=== PATIENT | male | born 1945 | race Caucasian/White ===

== ENCOUNTER → 2018-11-04 08:39 | Outpatient (CLI) | payer MEDICARE, BC, SELFPAY ==
--- NOTE | 2018-11-04 | DI.US.S_ITS ---
PROCEDURE: US ABDOMEN COMPLETE INDICATIONS: RIGHT UPPER QUADRANT PAIN TECHNIQUE: Real-time scanning was performed of the abdominal and retroperitoneal organs, with image documentation. COMPARISON: [facility], , ABD AORTA ANEURYSM SCREENING, 12/03/2017, 13:47. FINDINGS: Liver: Liver is normal in size and homogeneous in echotexture, diffusely mildly hyperechoic consistent with fatty infiltration. Gallbladder: The gallbladder contains clustered multiple hyperechoic foci with posterior shadowing consistent with numerous small calculi each measuring approximately 3-4 mm. Biliary ducts: Intrahepatic bile ducts are non-dilated. Extrahepatic bile duct caliber measures 4.9 mm. Normal is 6-7 mm or less in diameter, or 10 mm or less post-cholecystectomy. Pancreas: Visualized portions of the pancreas are sonographically normal. Spleen: Spleen is normal in size and homogeneous in echotexture. Kidneys: Kidneys are normal in size and echotexture. Right kidney measures 12.6 cm long; left kidney measures 10.2 cm long. No hydronephrosis or nephrolithiasis. No solid masses. Aorta: Visualized aorta is normal in caliber at less than 3 cm superiorly and at the middle third of the aorta but the distal third of the aorta there is a unexpected finding of avascular structure contiguous with the posterior aortic wall, measuring up to 1.5 cm AP and 2.2 cm craniocaudad. This contains blood flow that by color Doppler appearance is inferior-directed. A classic swirling pattern of a definite pseudoaneurysm is not seen the aorta in this area more anteriorly measures a normal value of 2.1 cm. Iliacs: Proximal common iliac arteries are normal in caliber at less than 2.5 cm. IVC: Intrahepatic inferior vena cava is patent. Miscellaneous: No free abdominal fluid. IMPRESSION: 1. There is an unexpected finding of a structure behind the distal aorta containing antegrade-flowing line, having a saccular appearance and potentially station of saccular aneurysm. The aorta in this area however measures up to 2.1 cm in diameter, normal. This could represent some form of bypass grafting, which should be evident by clinical history. Assuming no vascular or surgical intervention in this area contrast-enhanced CT scanning is recommended to attempt to understand this structure. It is possible it represents a normal anatomic variant but eccentric (saccular) pseudoaneurysm must be excluded. 2. Multiple small gallstones within the gallbladder lumen but without associated acute cholecystitis or biliary obstruction. Dictated by: Salazar Lambert M.D. on 11/04/2018 at 10:18 Approved by: Salazar Lambert M.D. on 11/04/2018 at 10:31
== END ==
PROVIDERS: PCP Family Medicine; Visit Provider Family Medicine
DX: R10.11 Right upper quadrant pain (principal); K80.80 Other cholelithiasis without obstruction
CPT/HCPCS: 76700

== ENCOUNTER → 2018-11-11 12:03 | Outpatient (CLI) | payer MEDICARE, BC, SELFPAY ==
--- NOTE | 2018-11-11 | DI.CT.S_ITS ---
PROCEDURE: CT ANGIO CHEST ABDOMEN INDICATIONS: ABNORMAL US RIGHT UPPER QUAD PAIN TECHNIQUE: Precontrast 5 mm thick sections acquired from the lung apices to the iliac crests. After the administration of intravenous contrast, 2.5 mm thick sections again acquired from the lung apices to the iliac crests. 10 mm maximum intensity projection (MIP) oblique sagittal and coronal reformats were then acquired. For radiation dose reduction, the following was used: automated exposure control. COMPARISON: [facility], US, US ABDOMEN COMPLETE, 11/04/2018, 8:54. FINDINGS: Image quality: Excellent. AORTA: The ascending thoracic aorta, aortic arch, and descending thoracic aorta demonstrate normal caliber and wall thickness. There is little to no atheromatous plaque or calcification. No mural hematoma. No aneurysmal dilatation. No stenosis. No periaortic fat stranding. CHEST: Lungs and pleura: Mild atelectasis is present in the dependent lungs bilaterally. No pleural effusion or pneumothorax. Mediastinum: Heart size is normal. No pericardial effusion. No mediastinal or hilar adenopathy by size criteria. Central pulmonary arteries are normal in size. Esophagus is normal in caliber. No hiatal hernias. Bones and chest wall: No axillary adenopathy by size criteria. Thyroid gland is unremarkable. No suspicious bony lesions. No vertebral body compression fractures. ABDOMEN: Vasculature: Celiac trunk and mesenteric arteries are patent. Renal arteries are also patent. Scattered atheromatous calcifications are present throughout the abdominal aorta. There is saccular dilatation of the infrarenal abdominal aorta measures up to 2.8 cm on AP diameter (series 9, image 55). Solid organs: Liver is normal in size and overall enhancement. A hypervascular focus with mild subcapsular retraction is present at the inferior margin the liver which may represent a small hemangioma Series 4, image 140).. Trace radiodense sludge layered in the gallbladder fundus. No gallbladder wall thickening or pericholecystic fluid. Biliary system is non dilated. Pancreas enhances normally. Spleen is normal in size and enhancement. No adrenal nodules. The right kidney is normal size. The left kidney is atrophic. A nonobstructing 2 mm calculus is present within the midpole of the left kidney. No hydronephrosis. Peritoneum and bowel: No free fluid or air. Bowel loops are normal in caliber and wall thickness. Nodes and vessels: No retroperitoneal or mesenteric adenopathy by size criteria. Inferior vena cava is normal in morphology. Bones: No suspicious bony lesions. No vertebral body compression fractures. Miscellaneous: No ventral hernias. IMPRESSION: 1. No thoracic aortic dissection, aneurysmal dilatation, or stenosis. 2. 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 Consider five-year sonographic surveillance. 3. No acute thoracic or intra-abdominal findings. 4. Left renal atrophy. No discrete stenosis within the left renal artery to explain atrophy. 5. Questionable hemangioma at the inferior margin of the right hepatic lobe with capsular retraction. Second look ultrasound is recommended to further characterize this finding and exclude neoplasm. Dictated by: Shanon Escobar M.D. on 11/11/2018 at 15:47 Approved by: Shanon Escobar M.D. on 11/11/2018 at 15:59
[2018-11-11 12:40] LABS: BUN Creatinine Ratio 13.8 (6-22); Blood Urea Nitrogen 11 mg/dL (9-20); Estimated Glomerular Filt Rate > 60.0 mL/min (>60)
[2018-11-11 13:27] LABS: Add Manual Diff / Slide Review NO; Basophils Absolute Auto 100 /uL (0-100); Basophils Percent Auto 2.1 % (0-2); Eosinophils Absolute Auto 100 /uL (0-450); Eosinophils Percent Auto 5.3 % (2-4); Hematocrit 40.8 % (41-53); Hemoglobin 14.2 g/dL (13.5-17.5); Lymphocytes Absolute Auto 1100 /uL (1100-4500); Lymphocytes Percent Auto 42.7 % (25-40); Mean Corpuscular HGB Conc 34.8 % (30-36); Mean Corpuscular Hemoglobin 33.1 PG (26-34); Mean Corpuscular Volume 95.2 fL (80-100); Monocytes Absolute Auto 200 /uL (0-900); Monocytes Percent Auto 8.9 % (3-14); Neutrophils Absolute Auto 1100 /uL (1500-7000); Platelet Count 131 X10^3/uL (150-400); Red Blood Cell Count 4.29 X10^6/uL (4.5-5.9); Red Cell Distribution Width 12.9 % (11.6-14.8); White Blood Cell Count 2.6 X10^3/uL (4.5-11.0)
== END ==
PROVIDERS: PCP Family Medicine; Visit Provider Family Medicine
DX: Z00.00 Encounter for general adult medical examination without abnormal findings (principal); R93.5 Abnormal findings on diagnostic imaging of other abdominal regions, including retroperitoneum; R10.11 Right upper quadrant pain; I77.811 Abdominal aortic ectasia; N26.1 Atrophy of kidney (terminal); E78.5 Hyperlipidemia, unspecified; D64.9 Anemia, unspecified
CPT/HCPCS: 36415; 71275; 74175; 82565; 84520; 85025; Q9967

== ENCOUNTER → 2018-12-14 09:43 | Outpatient (CLI) | payer MEDICARE, BC, SELFPAY ==
[2018-12-14 10:47] LABS: Alanine Aminotransferase 28 IU/L (21-72); Albumin 4.7 g/dL (3.5-5.0); Albumin Globulin Ratio 1.4 (1.0-2.8); Alkaline Phosphatase 54 U/L (38-126); Aspartate Aminotransferase 52 IU/L (17-59); BUN Creatinine Ratio 16.3 (6-22); Bilirubin Total 1.3 mg/dL (0.2-1.3); Blood Urea Nitrogen 13 mg/dL (9-20); Calcium 9.6 mg/dL (8.4-10.2); Carbon Dioxide 29 mmol/L (22-32); Chloride 103 mmol/L (98-107); Estimated Glomerular Filt Rate > 60.0 mL/min (>60); Globulin 3.3 g/dL (1.7-4.1); Glucose 99 mg/dL (80-110); HEMOLYSIS < 15 (0-50); Potassium 4.5 mmol/L (3.4-5.1); Sodium 140 mmol/L (137-145)
== END ==
PROVIDERS: PCP Family Medicine; Visit Provider Surgery
DX: R16.0 Hepatomegaly, not elsewhere classified (principal)
CPT/HCPCS: 36415; 80053

== ENCOUNTER → 2018-12-15 09:59 | Outpatient (CLI) | payer MEDICARE, BC, SELFPAY ==
--- NOTE | 2018-12-15 11:08 | DI.US.S_ITS ---
PROCEDURE: US ABDOMEN COMPLETE INDICATIONS: Liver Mass TECHNIQUE: Real-time scanning was performed of the abdominal and retroperitoneal organs, with image documentation. COMPARISON: [facility], CT, CT ANGIO CHEST ABDOMEN, 11/11/2018, 13:01. [facility], US, US ABDOMEN COMPLETE, 11/04/2018, 8:54. FINDINGS: Liver: Liver is normal in size and homogeneous in echotexture, diffusely hyperechoic consistent with fatty infiltration. A hemangioma is not seen at the inferior right hepatic lobe corresponding to the area of prior CT concern from 11/11/18. Gallbladder: Gallstones are present within the gallbladder lumen, small in size and layering posteriorly. Biliary ducts: Intrahepatic bile ducts are non-dilated. Extrahepatic bile duct caliber measures 4.4 mm. Normal is 6-7 mm or less in diameter, or 10 mm or less post-cholecystectomy. Pancreas: Visualized portions of the pancreas are sonographically normal. Spleen: Spleen is normal in size and homogeneous in echotexture. Kidneys: Kidneys are normal in size and echotexture. Right kidney measures 12.7 cm long; left kidney measures 10.1 cm long. No hydronephrosis or nephrolithiasis. No solid masses. Aorta: Visualized aorta is normal in caliber at less than 3 cm. Iliacs: Proximal common iliac arteries are normal in caliber at less than 2.5 cm. IVC: Intrahepatic inferior vena cava is patent. Miscellaneous: No free abdominal fluid. 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 Considering differences in technique this does not appear to have significantly changed from prior examination. IMPRESSION: 1. 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 There is potential risk for enlargement of such a structure which has a higher degree of risk for spontaneous rupture and for this reason unless previously obtained vascular surgical consultation is recommended to establish appropriate followup protocol for this patient. 2. The CT performed 11/11/18 had identified a perfusion anomaly at the capsular border of the posterior right hepatic lobe inferior margin. This cannot be seen by ultrasound. 3. Small presumed gallstones within the gallbladder lumen without evidence of biliary obstruction or acute cholecystitis. 4. Diffuse hyperechoic liver echotexture consistent with steatosis. Please correlate clinically. Dictated by: Saalzar Lambert M.D. on 12/15/2018 at 11:59 Approved by: Salazar Lambert M.D. on 12/15/2018 at 12:04
== END ==
PROVIDERS: PCP Family Medicine; Visit Provider Surgery
DX: I71.4 Abdominal aortic aneurysm, without rupture (principal); R16.0 Hepatomegaly, not elsewhere classified
CPT/HCPCS: 76700; 93005; 93010

== ENCOUNTER 2018-12-21 06:39 | Day surgery (SDC) | payer MEDICARE, BC, SELFPAY ==
[2018-12-14 13:42] VITALS: BMI 24.6
[2018-12-21] VITALS (9 sets, daily range): BP systolic 102–143; BP diastolic 66–88; PULSE 68–80; RESP 10–16; TEMP 36.1–36.6; O2SAT 96–99; BMI 24.5
--- NOTE | 2018-12-21 | PATH_ITS ---
[facility] Accession Number: [id number] . 01 Material submitted: . gallbladder - GALLBLADDER AND CONTENTS . 02 Diagnosis: Gallbladder: Cholelithiasis with associated chronic cholecystitis. MRV/12/23/2018 . 02 Electronically signed: . Otto Jorge MD, Pathologist NPI- [id number] . 01 Gross description: . Received in formalin, labeled gallbladder + contents, is an opened gallbladder (length-8.2 cm, diameter-2.5 cm) with gardner-pink smooth shiny serosa and a patent cystic duct. No lymph nodes are identified. The lumen contains brown-green tacky fluid and multiple dark brown gritty friable calculi (1.5 x 1.0 x 0.3 cm in aggregate). The mucosa is adan, smooth, and flat. The wall is up to 0.1 cm thick. No nodules, masses or lesions are identified. Section code: (A1) cystic duct resection margin and two serial sections from the body; (A2) two longitudinal sections from the fundus. ([id number]) /MRV . 02 Pathologist provided ICD-10: K80.64 . 02 CPT . 529580 Performed at: [address] [facility] [address], [place], [place] [id number] MD Paul Dangelo MD Phone: [phone] Performed at: 02 [facility] [address] [place], [place] [id number] MD Ayde Diaz MD Phone: [phone]
--- NOTE | 2018-12-21 07:05 | PM.PREOP ---
Pre-operative Note Interval Note History & Physical reviewed/Exam performed by Physician: Yes Changes to H&P: No
[2018-12-21] MEDS: LACTATED RINGERS 1,000 ML 42 ML IV ×2 (07:36→08:37)
--- NOTE | 2018-12-21 08:19 | SUR.OPER ---
Supine on padded OR bed, head on pillow, safety belt at thigh, left arm padded and tucked at side. Right arm secured on padded arm board <90 degrees abduction. Legs uncrossed. Padded footboard in place. Tape over blanket to secure lower legs.
[2018-12-21] MEDS: BUPIVACAINE 0.25% W/ EPI 30 ML VIAL INJ (08:38)
[2018-12-21] MEDS: CEFOTETAN IV (08:39)
--- NOTE | 2018-12-21 09:27 | PM.OP.1 ---
Operative Date/Time/Diagnoses Date of procedure: 12/21/18 Time of procedure: 09:27 Pre-op diagnosis: Symptomatic Cholelithiasis Post-op diagnosis: same Procedure & Clinicians Procedure: Laparoscopic Cholecystectomy Same procedure as scheduled: Yes Indications: 73yo M with RUQ pain after eating. Gallstones on imaging. All R/B/A discussed and pt wishes to proceed. Surgeon: Kira Tabler Click Yes if Unassisted: Yes Anesthesia Type: General Operative Notes Findings: Inflammatory omental adhesions Closure Type: primary Specimen(s): other (gallbladder) Estimated Blood Loss (mL): 30 Procedure in detail: The patient was taken to the operating room and placed on operating table in supine position. The abdomen was prepped and draped in sterile fashion and a time out is performed with the team present. Local anesthesia was used to infiltrate each site prior to incision. Using a 15-blade scalpel, a small 5 mm incision was made just to the right of the umbilicus. Using a 5 mm Optiview camera port, the laparoscope was inserted into the abdomen. Once confirmed to be within the peritoneal cavity, the abdomen was insufflated with air. Initial diagnostic laparoscopy showed no injury from initial trocar placement. Three secondary trocars were then placed in the following locations: a 5mm trocar was then placed in the right lateral subcostal margin, a 5mm trocar in the right midclavicular line, and an 11 mm trocar was placed in the midline in the midepigastric area. A blunt grasper was then used to retract the fundus of the gallbladder up over the dome of the liver. Thick inflammatory omental adhesions were attached to the gallbladder and liver. These were taken down with both blunt dissection and cautery. The liver was large and fatty. A second blunt grasper was used to retract the infundibulum caudally. A small capsular tear was noted and cauterized. Using blunt dissection and electrocautery, the cystic duct and cystic artery were identified. These were circumferentially cleaned distally and proximally. The critical view was seen. Once adequate length was obtained, the cystic duct was clipped three times proximally and singly clipped distally. The cystic artery was doubly clipped proximally and singly clipped distally. The cystic duct and cystic artery were then transected using hook scissors. The clips were noted to completely traverse their respective structures with no evidence of bile leakage or bleeding. The remaining peritoneal attachments of the gallbladder and the liver bed were taken down using electrocautery. Once free, the gallbladder was placed into an EndoCatch retrieval bag and removed through the 11 mm port. The gallbladder was then passed off as a specimen. The right upper quadrant was suctioned free of any free fluid and hemostasis ensured. The remainder of the local anesthesia was used to provide local analgesia over each of the port sites. The secondary trocars were removed under direct vision noting no bleeding. The abdomen was allowed to desufflate fully. The final trocar was removed. The skin incisions were then reapproximated using 4-0 Monocryl in an interrupted subcuticular fashion. The abdomen was cleaned and dried and steri strips were placed over each of the incisions. The patient was awakened and taken to the postanesthesia care unit in stable condition. All counts were correct at the end of the procedure. Complications: none Condition: stable Disposition: PACU
[2018-12-21] MEDS: fentaNYL 100 MCG/2 ML INJ 25 MCG IV ×2 (09:45→09:53)
== END 2018-12-21 10:35 | disposition home or self-care (01) ==
PROVIDERS: Family Provider Internal Medicine; PCP Family Medicine; Visit Provider Surgery
PROC: 0FT44ZZ Resection of Gallbladder, Percutaneous Endoscopic Approach (ICD-10-PCS; CPT 47562; principal; 2018-12-21 07:45)
DX: K80.20 Calculus of gallbladder without cholecystitis without obstruction (principal); K66.0 Peritoneal adhesions (postprocedural) (postinfection)
CPT/HCPCS: 47562; 88304; J1100; J1885; J2405; J2704; J3010

== ENCOUNTER → 2019-03-16 13:56 | Outpatient (CLI) | payer MEDICARE, BC, SELFPAY ==
[2019-03-16 14:23] LABS: Add Manual Diff / Slide Review NO; Basophils Absolute Auto 100 /uL (0-100); Basophils Percent Auto 1.5 % (0-2); Eosinophils Absolute Auto 100 /uL (0-450); Eosinophils Percent Auto 2.2 % (2-4); Hemoglobin 15.7 g/dL (13.5-17.5); Lymphocytes Absolute Auto 1400 /uL (1100-4500); Lymphocytes Percent Auto 33.1 % (25-40); Mean Corpuscular HGB Conc 34.1 % (30-36); Mean Corpuscular Hemoglobin 32.7 PG (26-34); Mean Corpuscular Volume 95.9 fL (80-100); Monocytes Absolute Auto 400 /uL (0-900); Monocytes Percent Auto 8.8 % (3-14); Neutrophils Absolute Auto 2300 /uL (1500-7000); Neutrophils Percent Auto 54.4 % (50-75); Platelet Count 139 X10^3/uL (150-400); Red Blood Cell Count 4.79 X10^6/uL (4.5-5.9); Red Cell Distribution Width 12.3 % (11.6-14.8); White Blood Cell Count 4.3 X10^3/uL (4.5-11.0)
[2019-03-16 15:10] LABS: Alanine Aminotransferase 26 IU/L (21-72); Albumin 4.8 g/dL (3.5-5.0); Albumin Globulin Ratio 1.5 (1.0-2.8); Alkaline Phosphatase 61 U/L (38-126); Aspartate Aminotransferase 49 IU/L (17-59); Bilirubin Total 1.1 mg/dL (0.2-1.3); Blood Urea Nitrogen 12 mg/dL (9-20); Calcium 10.2 mg/dL (8.4-10.2); Carbon Dioxide 23 mmol/L (22-32); Chloride 99 mmol/L (98-107); Estimated Glomerular Filt Rate > 60.0 mL/min (>60); Globulin 3.3 g/dL (1.7-4.1); Glucose 123 mg/dL (80-110); HEMOLYSIS 40 (0-50); Potassium 4.2 mmol/L (3.4-5.1); Sodium 139 mmol/L (137-145); Total Protein 8.1 g/dL (6.3-8.2)
== END ==
PROVIDERS: Family Provider Internal Medicine; PCP Internal Medicine; Visit Provider Surgery
DX: R10.9 Unspecified abdominal pain (principal)
CPT/HCPCS: 36415; 80053; 85025

== ENCOUNTER → 2019-03-22 08:08 | Outpatient (CLI) | payer MEDICARE, BC, SELFPAY ==
--- NOTE | 2019-03-22 08:09 | DI.US.S_ITS ---
PROCEDURE: US ABDOMEN COMPLETE INDICATIONS: PAIN 3 MONTHS POST CHOLECYSTECTOMY TECHNIQUE: Real-time scanning was performed of the abdominal and retroperitoneal organs, with image documentation. COMPARISON: [facility], US, ABD AORTA ANEURYSM SCREENING, 12/03/2017, 13:47. [facility], US, US ABDOMEN COMPLETE, 12/15/2018, 11:25. [facility], CT, CT ANGIO CHEST ABDOMEN, 11/11/2018, 13:01. [facility], US, US ABDOMEN COMPLETE, 11/04/2018, 8:54. FINDINGS: Liver: Liver is diffusely increased in echogenicity. No focal hepatic abnormalities identified. Normal hepatic size. Gallbladder: Gallbladder surgically absent. Biliary ducts: Intrahepatic bile ducts are non-dilated. Extrahepatic bile duct caliber measures 5.8 mm. Normal is 6-7 mm or less in diameter, or 10 mm or less post-cholecystectomy. Pancreas: Visualized portions of the pancreas are sonographically normal. Spleen: Spleen is normal in size and homogeneous in echotexture. Kidneys: Right kidney is somewhat atrophic compared to the right as seen on the prior CT pulmonary angiogram. Right kidney measures 12.9 cm long; left kidney measures 10.9 cm long. No hydronephrosis. 7 mm nonobstructing mid pole left renal stone. No solid masses. Aorta: Visualized aorta is normal in caliber at less than 3 cm. Iliacs: Proximal common iliac arteries are normal in caliber at less than 2.5 cm. IVC: Intrahepatic inferior vena cava is patent. Miscellaneous: No free abdominal fluid. IMPRESSION: 1. Increased hepatic echogenicity noted possibly related to hepatic steatosis but other sources of hepatocellular disease cannot be excluded. 2. Stable 7 mm nonobstructing left renal stone. 3. No source for right upper quadrant pain identified. Post cholecystectomy. Dictated by: Denilson LEDEZMA Interpreted: Guillermo Berumen MD on 03/22/2019 at 10:11 Approved by: Guillermo Berumen M.D. on 03/22/2019 at 14:02
== END ==
PROVIDERS: Family Provider Internal Medicine; PCP Internal Medicine; Visit Provider Surgery
DX: R10.9 Unspecified abdominal pain (principal); N20.0 Calculus of kidney; Z98.890 Other specified postprocedural states
CPT/HCPCS: 76700

== ENCOUNTER 2019-04-21 14:12 | Observation (INO) | payer MEDICARE, BC, SELFPAY ==
[2019-04-21] VITALS (8 sets, daily range): BP systolic 141–167; BP diastolic 81–101; PULSE 95–111; RESP 17–23; TEMP 36.4–37.3; O2SAT 95–100; BMI 23.7
[2019-04-21] MEDS: ALBUTEROL/IPRATROPIUM 3 ML AMPUL INH (14:19)
--- NOTE | 2019-04-21 14:45 | ED_ITS ---
HPI - SOB/Dyspnea General Chief Complaint: Shortness of Breath/Dyspnea Stated Complaint: cant breath Time Seen by Provider: 04/21/19 14:28 Source: patient and family () Mode of arrival: wheelchair Limitations: no limitations History of Present Illness This is a 73-year-old male comes emergency department with complaint of difficulty breathing and feel short of breath. He states last night felt like all his extremities were numb patient states that felt like he could not lift them up. He was able to get to the car but his states it took a long time. Patient has not any fevers or chills. He feels like he can't breathe. He denies any chest pain or pressure. [place] a little nauseated but no vomiting. He has on bowel movements. He sometimes has trouble starting his stream but has been able to urinate new. He has chronic back issues he uses THC for pain control and denies any new medications. Patient was able to get to the car with some assistance from his states he had moved his arms and legs but he is able to move them in the room. No new loss of bowel or bladder control. Patient did have a headache yesterday but no longer. He has also had a lot of hiccups in the last 12 hours. Patient did have a cholecystectomy 2 months ago bellies had his hip replaced as well as a disc fusion any has DISH, who takes a cholesterol medication but no hypertensive medications. He does drink initially 2-4 drinks daily but his indicates that he may drink more. He did have a drink this morning. He admits to THC but denies other illicit. Dr. Copeland is his PCP. Related Data Home Medications Medication Instructions Recorded Confirmed allopurinol 150 mg PO QDAY #0 02/21/11 04/21/19 latanoprost [Xalatan] 1 drp EYE-LEFT BEDTIME #0 02/21/11 04/21/19 simvastatin [Zocor] 10 mg PO DAILY #0 02/21/11 04/21/19 Alphagan P 1 drp OPHTH DAILY #10 ml 01/21/13 04/21/19 aspirin 81 mg PO QDAY #0 01/21/13 04/21/19 cholecalciferol (vitamin D3) 2,000 - 4,000 unit PO DAILY #0 01/21/13 04/21/19 [Vitamin D3] coenzyme Q10 60 mg PO DAILY #0 01/21/13 04/21/19 ferrous gluconate 236 mg PO DAILY #0 01/21/13 04/21/19 milk thistle 150 mg capsule 150 mg PO DAILY #0 cap 01/31/19 04/21/19 ranitidine HCl [Zantac] 150 mg PO DAILY PRN 04/21/19 04/21/19 trazodone 50 mg PO BEDTIME 04/21/19 04/21/19 Previous Rx's Medication Instructions Recorded ibuprofen 800 mg PO TID #30 tab 12/21/18 baclofen 10 mg tablet 10 mg PO DAILY #90 tab 03/18/19 quetiapine 50 mg tablet 50 mg PO BEDTIME #30 tab 03/18/19 Allergies Allergy/AdvReac Type Severity Reaction Status Date / Time hydrocodone Allergy Unknown Impaired Verified 04/21/19 14:24 breathing acetaminophen [From Lortab] Allergy Verified 04/21/19 14:24 methocarbamol [From Robaxin] AdvReac Mild passed Verified 04/21/19 14:24 out, felt horrible Review of Systems Review of Systems ROS Unobtainable: All systems reviewed & are unremarkable except as noted in HPI and below Constitutional Denies chills, Denies fever(s), Denies lethargy and Denies weakness ENT Ears, Nose, Mouth, and Throat: Denies dizziness and Denies disequilibrium Cardiovascular Denies chest pain, Denies syncope, Denies irregular heart rhythm, Denies leg edema, Denies lightheadedness, Denies palpitations, Reports dyspnea and Denies orthopnea Respiratory Denies chest congestion, Denies cough, Reports dyspnea and Denies wheezing Gastrointestinal Gastrointestinal: Denies abdominal pain, Denies melena, Denies hematochezia, Denies change in bowel habits, Denies fecal incontinence, Denies diarrhea, Denies nausea and Denies vomiting Genitourinary Denies hematuria, Denies flank pain, Denies urinary frequency, Reports urinary hesitancy, Denies urinary incontinence and Denies urinary urgency Musculoskeletal Reports back pain (chronic, no new changes.) and Reports numbness (all extremities. ) Integumentary/Breasts Denies rash Neurologic Reports as per HPI, Denies behavioral changes, Denies confusion, Denies dizziness, Denies syncope, Denies focal weakness, Reports numbness (all extremities. ), Reports paresthesias, Denies disequilibrium and Denies weakness Psychiatric Denies behavioral changes and Denies confusion Endocrine Denies palpitations Allergic/Immunologic Denies wheezing [facility] Medical History Acid reflux (Chronic) Insomnia (Chronic) Hyperlipidemia (Chronic 02/21/11) AAA (abdominal aortic aneurysm) (Chronic ~2018) Gout (Chronic 02/21/11) Glaucoma (Chronic 02/21/11) Arthritis (Chronic) Chronic back pain (Chronic) GERD (gastroesophageal reflux disease) (Chronic ~2018) Heartburn (Chronic) Sciatica (Chronic) Chicken pox (Resolved) Measles (Resolved) Symptomatic cholelithiasis (Resolved) Surgical History Anesthesia (Resolved) Hx of fusion of cervical spine (Inactive ~08/2005) S/P laparoscopic cholecystectomy (Inactive ~11/2018) Status post left hip replacement (Inactive ~12/2012) Status post lumbar surgery (Inactive) Family History Father Bladder cancer Brother Throat cancer Grandfather Stroke Social History marital status: household members: spouse occupational status: previously employed Smoking Status: Former smoker alcohol intake: current substance use type: marijuana Family History Father Bladder cancer Brother Throat cancer Grandfather Stroke Social History marital status: household members: spouse occupational status: previously employed Smoking Status: Former smoker alcohol intake: current substance use type: marijuana Exam Narrative Exam Narrative: GEN: well nourished, well appearing male, alert and oriented x 3, patient appears to be in mild distress. HEENT: Atraumatic, pupils are equal round reactive to light, extraocular movements are intact, nares are clear, throat is clear without any exudates, erythema, tonsillar enlargement or uvular deviation HEART: Regular rate and rhythm without murmur, clicks, rubs. LUNGS:Lungs clear to auscultation, no wheezes, rales, crackles, chest moves sym metrically ABD:bowel sounds normal, soft, non-tender, no guarding, rebound, rigidity, no masses noted, no hepatosplenomegaly :No CVA tenderness BACK: No cervical, thoracic or lumbar vertebral point tenderness. Patient has decreased range of motion, patient assisted to sit up, does not attempt to help but later is able to stand and use a urinal at bedside without assistance. Patient's gait is not tested. 2+ pulses bilaterally upper and lower. Sensation is intact in the lower extremities to touch. MSCL: Non-tender, no muscle atrophy, muscles strength 5/5 upper and lower extremities, full range of motion, normal gait PSYCH: anxiety. denies ingestion NEURO:CN 2-12 intact, sensation normal, reflexes 2/4 upper and lower extremities. finger nose finger test normal, heel kovacs test normal, romberg normal Initial Vital Signs Initial Vital Signs: Vital Signs Pulse Rate 95 H 04/21/19 14:19 Respiratory Rate 17 04/21/19 14:19 Pulse Oximetry 95 04/21/19 14:19 Scores GCS Nadia coma scale eye opening: Spontaneous [place] coma scale verbal response: Orientated Nadia coma scale motor response: Obey commands Nadia coma scale total score: 15 Course Orders Ordered: ED Orders 04/21/19 14:45 Consult to Respiratory Therapy Evaluate & Treat 04/21/19 14:51 XR chest 1V Stat 04/21/19 15:00 B Type Natriuretic Peptide Stat Complete Blood Count AUTO DIFF Stat Comprehensive Metabolic Panel Stat Ethanol (ETOH) Stat Magnesium Stat Procalcitonin Stat Salicylate Stat Thyroid Stimulating Hormone Stat Troponin & CK Cardiac Panel Stat 04/21/19 15:32 D Dimer Stat Lactate (Lactic Acid) Stat Partial Thromboplastin Time Stat Prothrombin Time INR Stat 04/21/19 16:29 CT angio chest abdomen pelvis Stat 04/21/19 17:06 Blood Culture Stat 04/21/19 17:42 Arterial Blood Gas Stat 04/21/19 19:05 Urine Microscopic Stat Discontinued Medications Albuterol/Ipratropium (Duoneb) 3 ml INH NOW ONE Stop: 04/21/19 14:19 Last Admin: 04/21/19 14:19 Dose: 3 ml Sodium Chloride (Normal Saline 0.9%) 1,000 mls @ 1,000 mls/hr IV BOLUS ONE Stop: 04/21/19 15:44 Last Admin: 04/21/19 16:35 Dose: 1,000 mls/hr Sodium Chloride (Normal Saline 0.9%) 1,000 mls @ 1,000 mls/hr IV BOLUS ONE Stop: 04/21/19 17:36 Last Admin: 04/21/19 17:44 Dose: 1,000 mls/hr Lorazepam (Ativan) 0.5 mg IV NOW ONE Stop: 04/21/19 15:04 Last Admin: 04/21/19 16:36 Dose: 0.5 mg Vital Signs - 8 hr 04/21/19 14:19 04/21/19 14:24 04/21/19 14:45 Temperature 98.2 F 97.5 F L Pulse Rate 95 H 111 H 96 H Respiratory Rate 17 18 23 Blood Pressure 156/81 H Blood Pressure [Right Arm] 141/83 H Pulse Oximetry 95 99 100 04/21/19 16:16 04/21/19 18:54 Temperature Pulse Rate 102 H Respiratory Rate 19 Blood Pressure Blood Pressure [Right Arm] 141/83 H 154/96 H Pulse Oximetry 100 MDM - SOB/Dyspnea Lab Data Attestation: I reviewed the patient's lab results. Result diagrams: 04/21/19 15:00 04/21/19 15:00 Lab Results 04/21/19 04/21/19 04/21/19 Range/Units 15:00 15:00 15:00 WBC 4.5 (4.5-11.0) X10^3/uL RBC 4.90 (4.5-5.9) X10^6/uL Hgb 16.4 (13.5-17.5) g/dL Hct 46.5 (41-53) % MCV 94.7 (80-100) fL MCH 33.4 (26-34) PG MCHC 35.3 (30-36) % RDW 14.2 (11.6-14.8) % Plt Count 144 L (150-400) X10^3/uL Neut % (Auto) 53.9 (50-75) % Lymph % (Auto) 33.6 (25-40) % Falls % (Auto) 10.3 (3-14) % Eos % (Auto) 1.0 L (2-4) % Baso % (Auto) 1.2 (0-2) % Neut # (Auto) 2400 (1549-1880) /uL Lymph # (Auto) 1500 (7708-4506) /uL Falls # (Auto) 500 (0-900) /uL Eos # (Auto) 0 (0-450) /uL Baso # (Auto) 100 (0-100) /uL PT (10.1-12.7) SECONDS INR (0.9-1.3) APTT (26.4-36.2) SECONDS D-Dimer (<230) ng/mL ABG pH (7.35-7.45) ABG pCO2 (35-45) mmHg ABG pO2 (80-100) mmHg ABG HCO3 (22-26) mmol/L ABG Total CO2 (21-31) mmol/L ABG O2 Saturation (95-100) % ABG Base Excess (-2-2) mmol/L FiO2 Sodium (137-145) mmol/L Potassium (3.4-5.1) mmol/L Chloride (98-107) mmol/L Carbon Dioxide (22-32) mmol/L BUN (9-20) mg/dL Creatinine (0.66-1.25) mg/dL Estimated GFR (>60) mL/min BUN/Creatinine Ratio (6-22) Glucose (80-110) mg/dL Lactate (0.7-2.1) mmol/L Calcium (8.4-10.2) mg/dL Magnesium 1.7 (1.6-2.3) mg/dL Total Bilirubin (0.2-1.3) mg/dL AST (17-59) IU/L ALT (21-72) IU/L Alkaline Phosphatase (38-126) U/L Total Creatine Kinase 163 (55-170) U/L CK-MB (CK-2) 5.74 H (<2.37) ng/mL CK-MB (CK-2) Rel Index 3.5 (1.5-5.0) % Troponin I < 0.012 (0.01-0.034) ng/mL B-Natriuretic Peptide < 100 (<100) Total Protein (6.3-8.2) g/dL Albumin (3.5-5.0) g/dL Globulin (1.7-4.1) g/dL Albumin/Globulin Ratio (1.0-2.8) Procalcitonin 0.11 (<0.5) ng/mL Ethyl Alcohol ( - 10) mg/dL 04/21/19 04/21/19 04/21/19 Range/Units 15:00 15:00 15:32 WBC (4.5-11.0) X10^3/uL RBC (4.5-5.9) X10^6/uL Hgb (13.5-17.5) g/dL Hct (41-53) % MCV (80-100) fL MCH (26-34) PG MCHC (30-36) % RDW (11.6-14.8) % Plt Count (150-400) X10^3/uL Neut % (Auto) (50-75) % Lymph % (Auto) (25-40) % Falls % (Auto) (3-14) % Eos % (Auto) (2-4) % Baso % (Auto) (0-2) % Neut # (Auto) (3764-8211) /uL Lymph # (Auto) (8047-9639) /uL Falls # (Auto) (0-900) /uL Eos # (Auto) (0-450) /uL Baso # (Auto) (0-100) /uL PT 11.3 (10.1-12.7) SECONDS INR 1.0 (0.9-1.3) APTT 29 (26.4-36.2) SECONDS D-Dimer 690 H (<230) ng/mL ABG pH (7.35-7.45) ABG pCO2 (35-45) mmHg ABG pO2 (80-100) mmHg ABG HCO3 (22-26) mmol/L ABG Total CO2 (21-31) mmol/L ABG O2 Saturation (95-100) % ABG Base Excess (-2-2) mmol/L FiO2 Sodium 143 (137-145) mmol/L Potassium 4.2 (3.4-5.1) mmol/L Chloride 99 (98-107) mmol/L Carbon Dioxide 19 L (22-32) mmol/L BUN 9 (9-20) mg/dL Creatinine 0.70 (0.66-1.25) mg/dL Estimated GFR > 60.0 (>60) mL/min BUN/Creatinine Ratio 12.9 (6-22) Glucose 89 (80-110) mg/dL Lactate (0.7-2.1) mmol/L Calcium 10.3 H (8.4-10.2) mg/dL Magnesium (1.6-2.3) mg/dL Total Bilirubin 1.0 (0.2-1.3) mg/dL AST 199 H (17-59) IU/L ALT 100 H (21-72) IU/L Alkaline Phosphatase 86 (38-126) U/L Total Creatine Kinase (55-170) U/L CK-MB (CK-2) (<2.37) ng/mL CK-MB (CK-2) Rel Index (1.5-5.0) % Troponin I (0.01-0.034) ng/mL B-Natriuretic Peptide (<100) Total Protein 8.3 H (6.3-8.2) g/dL Albumin 5.0 (3.5-5.0) g/dL Globulin 3.3 (1.7-4.1) g/dL Albumin/Globulin Ratio 1.5 (1.0-2.8) Procalcitonin (<0.5) ng/mL Ethyl Alcohol 248 H ( - 10) mg/dL 04/21/19 04/21/19 04/21/19 Range/Units 15:32 17:42 18:45 WBC (4.5-11.0) X10^3/uL RBC (4.5-5.9) X10^6/uL Hgb (13.5-17.5) g/dL Hct (41-53) % MCV (80-100) fL MCH (26-34) PG MCHC (30-36) % RDW (11.6-14.8) % Plt Count (150-400) X10^3/uL Neut % (Auto) (50-75) % Lymph % (Auto) (25-40) % Falls % (Auto) (3-14) % Eos % (Auto) (2-4) % Baso % (Auto) (0-2) % Neut # (Auto) (7298-9971) /uL Lymph # (Auto) (8091-8890) /uL Falls # (Auto) (0-900) /uL Eos # (Auto) (0-450) /uL Baso # (Auto) (0-100) /uL PT (10.1-12.7) SECONDS INR (0.9-1.3) APTT (26.4-36.2) SECONDS D-Dimer (<230) ng/mL ABG pH 7.48 H (7.35-7.45) ABG pCO2 18.9 L* (35-45) mmHg ABG pO2 111 H (80-100) mmHg ABG HCO3 14 L (22-26) mmol/L ABG Total CO2 14 L (21-31) mmol/L ABG O2 Saturation 99 (95-100) % ABG Base Excess -10.0 L (-2-2) mmol/L FiO2 0.21 Sodium (137-145) mmol/L Potassium (3.4-5.1) mmol/L Chloride (98-107) mmol/L Carbon Dioxide (22-32) mmol/L BUN (9-20) mg/dL Creatinine (0.66-1.25) mg/dL Estimated GFR (>60) mL/min BUN/Creatinine Ratio (6-22) Glucose (80-110) mg/dL Lactate 9.8 H* 9.0 H* (0.7-2.1) mmol/L Calcium (8.4-10.2) mg/dL Magnesium (1.6-2.3) mg/dL Total Bilirubin (0.2-1.3) mg/dL AST (17-59) IU/L ALT (21-72) IU/L Alkaline Phosphatase (38-126) U/L Total Creatine Kinase (55-170) U/L CK-MB (CK-2) (<2.37) ng/mL CK-MB (CK-2) Rel Index (1.5-5.0) % Troponin I (0.01-0.034) ng/mL B-Natriuretic Peptide (<100) Total Protein (6.3-8.2) g/dL Albumin (3.5-5.0) g/dL Globulin (1.7-4.1) g/dL Albumin/Globulin Ratio (1.0-2.8) Procalcitonin (<0.5) ng/mL Ethyl Alcohol ( - 10) mg/dL Urine Dip Bedside Urine Glucose Negative Bedside Urine Bilirubin - Negative Bedside Urine Ketone +++ 80 Urine Specific [place] 1.010 Bedside Urine Occult Blood +/- Bedside Urine pH 7.0 Bedside Urine Protein +/- 15 Bedside Urine Urobilinogen - Negative Imaging Data CT chest/abd/pelvis: Radiologist's impression: [address] [address] [address] Scan Report Signed Patient: Bruce Larsen#: [id number] : 8Acct:[id number] Age/Sex: 73 / MDate of Service: 04/21/19 Loc: ED Accession Number: [id number] Procedure: CT angio chest abdomen pelvis Ordering Provider: Nano Solis D.O. PROCEDURE: CT ANGIO CHEST ABDOMEN PELVIS INDICATIONS: pe, vs. other, sob, can't move extremities, elevated lactate TECHNIQUE: Precontrast 5 mm thick sections acquired from the lung apices to the iliac cre sts. After the administration of intravenous contrast, 2.5 mm thick sections again acquired from the lung apices to the iliac crests. Maximum intensity projection (MIP) oblique sagittal and coronal reformats were then acquired. For radiation dose reduction, the following was used: automated exposure control. COMPARISON: [facility], CT, CT ANGIO CHEST ABDOMEN, 11/11/2018, 13:01. FINDINGS: Image quality: Excellent. AORTA: No acute aortic syndrome. No dissection. Mild prominence of the ascending thoracic aorta measuring 3.5 cm, (7/23). Mild calcified arthroscopic plaque. Pulmonary arteries: No pulmonary embolism to the level of the subsegmental pulmonary arteries. CHEST: Lungs and pleura: No acute airspace opacities. Punctate pulmonary nodule in the right middle lobe, (6/140) No pleural effusions or pneumothorax. Central and peripheral airways are patent and normal in caliber. Mediastinum: Heart size is normal. Coronary artery calcifications. No pericardial effusion. No mediastinal or hilar adenopathy by size criteria. Central pulmonary arteries are normal in size. Esophagus is normal in caliber. Small hiatal hernia hiatal hernias. Small gastric cardiac node. Bones and chest wall: No axillary adenopathy by size criteria. Thyroid gland is unremarkable. No suspicious bony lesions. No vertebral body compression fractures. ABDOMEN: Vasculature: No dissection. Ectasia of the infrarenal abnormal aorta measuring up to 2.6 cm, (17/42). Mild calcified atherosclerotic plaque. Celiac trunk and mesenteric arteries are patent. Renal arteries are also patent. Solid organs: Liver is normal in size. Probable flash filling hemangioma or perfusion abnormality in the inferior right lobe of the liver, (08/28), unchanged. Gallbladder is surgically absent. Biliary system is non dilated. Pancreas enhances normally. Spleen is normal in size and enhancement. No adrenal nodules. Both kidneys are normal in size and enhancement, without hydronephrosis. 4 mm left mid kidney nonobstructing calculus. Scarring in the left kidney. Peritoneum and bowel: No free fluid or air. Bowel loops are normal in caliber and wall thickness. A few scattered colonic diverticuli. The appendix is normal. No acute inflammatory process. Nodes and vessels: No retroperitoneal or mesenteric adenopathy by size criteria. Inferior vena cava is normal in morphology. Miscellaneous: Tiny fat-containing periumbilical hernia. PELVIS: Genitourinary: Bladder is distended but otherwise unremarkable. Prostatomegaly. Miscellaneous: No inguinal hernias or adenopathy. No ventral hernias. Bones: No suspicious bony lesions. Left hip total arthroplasty. No vertebral body compression fractures. IMPRESSION: Negative exam. No acute aortic syndrome. No pulmonary embolism. No acute inflammatory process identified. Dictated by: Guillermo Berumen M.D. on 04/21/2019 at 17:54 Approved by: Guillermo Berumen M.D. on 04/21/2019 at 18:13 ECG Data Attestation: I personally reviewed and interpreted this ECG as follows: Prior ECG tracings: available for review Interpretation: Sinus rhythm with a rate of 97 P are 2 a 4 QRS of 94 and QTC 396. Patient has some artifact. But no clear ST changes. Similar except for leads with artifact. [facility] Narrative Medical decision making narrative: Patient's symptoms seem a little bit improved after Ativan and he feels like his breathing is easier and he able to stand even urinate. He had mild tachycardia with surgery about 2 months ago so potential for PE although he was not hypoxic or hypotensive. 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 His lab work other than a markedly elevated lactate no major changes to CBC other than a mildly low platelets at 144, D-dimer was 09/05/1989 with normal coags, electrolytes show a bicarb of 19 but no other electrolyte or renal changes. Calcium was 10.3 with mildly elevated LFTs at 199/100, bilirubin was normal and a lipase was normal with a negative troponin and a procalcitonin of 0.11. On bladder scan patient did have urinary retention, he was able to urinate although not all the urine and he is very hesitant for lou catheter, discussed if he can continue to urinate regularly can defer for the moment. Patient's ABG shows a respiratory alkalosis with metabolic compensation. Discussed with patient and family he does drink alcohol this could be a part of it but we also discussed if he has any other ingestions which he denies. UDS and UA are pending. Patient's primary care is Dr. Copeland. Patient is just finally receiving his 1st 2 L of fluid and are going to recheck a lactate. Spoke with Dr. Matos who accepts. UDS and UA are pending, salicylate added and TSH. Discharge Plan Departure Patient Disposition: Admitted as Observation Clinical Impression: Acidosis, lactic, Compensated respiratory alkalosis, Alcohol abuse Referrals: Gigi Copeland MD [Primary Care Provider] -
--- NOTE | 2019-04-21 14:51 | DI.RAD.S_ITS ---
PROCEDURE: XR CHEST 1V INDICATIONS: sob TECHNIQUE: One view of the chest was acquired. COMPARISON: None. FINDINGS: Surgical changes and devices: None. Lungs and pleura: Lungs are clear. No pleural effusions or pneumothorax. Mediastinum: Mediastinal contours appear normal. Heart size is normal. Bones and chest wall: No suspicious bony lesions. Overlying soft tissues appear unremarkable. IMPRESSION: Normal for age, source of current shortness of breath symptoms is not seen. Dictated by: Salazar Lambert M.D. on 04/21/2019 at 15:43 Approved by: Salazar Lambert M.D. on 04/21/2019 at 15:43
[2019-04-21 15:07] LABS: Add Manual Diff / Slide Review NO; Basophils Absolute Auto 100 /uL (0-100); Basophils Percent Auto 1.2 % (0-2); Eosinophils Absolute Auto 0 /uL (0-450); Hematocrit 46.5 % (41-53); Hemoglobin 16.4 g/dL (13.5-17.5); Lymphocytes Absolute Auto 1500 /uL (1100-4500); Lymphocytes Percent Auto 33.6 % (25-40); Mean Corpuscular HGB Conc 35.3 % (30-36); Mean Corpuscular Hemoglobin 33.4 PG (26-34); Mean Corpuscular Volume 94.7 fL (80-100); Monocytes Absolute Auto 500 /uL (0-900); Monocytes Percent Auto 10.3 % (3-14); Neutrophils Absolute Auto 2400 /uL (1500-7000); Neutrophils Percent Auto 53.9 % (50-75); Platelet Count 144 X10^3/uL (150-400); Red Cell Distribution Width 14.2 % (11.6-14.8); White Blood Cell Count 4.5 X10^3/uL (4.5-11.0)
[2019-04-21 15:18] LABS: Alanine Aminotransferase 100 IU/L (21-72); Albumin Globulin Ratio 1.5 (1.0-2.8); Alkaline Phosphatase 86 U/L (38-126); Aspartate Aminotransferase 199 IU/L (17-59); BUN Creatinine Ratio 12.9 (6-22); Blood Urea Nitrogen 9 mg/dL (9-20); Calcium 10.3 mg/dL (8.4-10.2); Carbon Dioxide 19 mmol/L (22-32); Chloride 99 mmol/L (98-107); Estimated Glomerular Filt Rate > 60.0 mL/min (>60); Globulin 3.3 g/dL (1.7-4.1); Glucose 89 mg/dL (80-110); HEMOLYSIS 29 (0-50); Potassium 4.2 mmol/L (3.4-5.1); Sodium 143 mmol/L (137-145); Total Protein 8.3 g/dL (6.3-8.2)
[2019-04-21 15:22] LABS: B Type Natriuretic Peptide < 100 (<100)
[2019-04-21 15:26] LABS: Creatine Kinase 163 U/L (55-170); Magnesium 1.7 mg/dL (1.6-2.3)
[2019-04-21 15:33] LABS: Procalcitonin 0.11 ng/mL (<0.5)
[2019-04-21 15:39] LABS: Troponin I < 0.012 ng/mL (0.01-0.034)
[2019-04-21 15:41] LABS: CKMB % Relative Index 3.5 % (1.5-5.0); Creatine Kinase MB 5.74 ng/mL (<2.37)
[2019-04-21 15:50] LABS: Prothrombin Time 11.3 SECONDS (10.1-12.7)
[2019-04-21 15:53] LABS: D Dimer 690 ng/mL (<230); PTT Partial Thromboplastin Tim 29 SECONDS (26.4-36.2)
[2019-04-21 16:10] LABS: Lactate (Lactic Acid) 9.8 mmol/L (0.7-2.1)
--- NOTE | 2019-04-21 16:29 | DI.CT.S_ITS ---
PROCEDURE: CT ANGIO CHEST ABDOMEN PELVIS INDICATIONS: pe, vs. other, sob, can't move extremities, elevated lactate TECHNIQUE: Precontrast 5 mm thick sections acquired from the lung apices to the iliac crests. After the administration of intravenous contrast, 2.5 mm thick sections again acquired from the lung apices to the iliac crests. Maximum intensity projection (MIP) oblique sagittal and coronal reformats were then acquired. For radiation dose reduction, the following was used: automated exposure control. COMPARISON: [facility], CT, CT ANGIO CHEST ABDOMEN, 11/11/2018, 13:01. FINDINGS: Image quality: Excellent. AORTA: No acute aortic syndrome. No dissection. Mild prominence of the ascending thoracic aorta measuring 3.5 cm, (7/23). Mild calcified arthroscopic plaque. Pulmonary arteries: No pulmonary embolism to the level of the subsegmental pulmonary arteries. CHEST: Lungs and pleura: No acute airspace opacities. Punctate pulmonary nodule in the right middle lobe, (6/140) No pleural effusions or pneumothorax. Central and peripheral airways are patent and normal in caliber. Mediastinum: Heart size is normal. Coronary artery calcifications. No pericardial effusion. No mediastinal or hilar adenopathy by size criteria. Central pulmonary arteries are normal in size. Esophagus is normal in caliber. Small hiatal hernia hiatal hernias. Small gastric cardiac node. Bones and chest wall: No axillary adenopathy by size criteria. Thyroid gland is unremarkable. No suspicious bony lesions. No vertebral body compression fractures. ABDOMEN: Vasculature: No dissection. Ectasia of the infrarenal abnormal aorta measuring up to 2.6 cm, (17/42). Mild calcified atherosclerotic plaque. Celiac trunk and mesenteric arteries are patent. Renal arteries are also patent. Solid organs: Liver is normal in size. Probable flash filling hemangioma or perfusion abnormality in the inferior right lobe of the liver, (12/29), unchanged. Gallbladder is surgically absent. Biliary system is non dilated. Pancreas enhances normally. Spleen is normal in size and enhancement. No adrenal nodules. Both kidneys are normal in size and enhancement, without hydronephrosis. 4 mm left mid kidney nonobstructing calculus. Scarring in the left kidney. Peritoneum and bowel: No free fluid or air. Bowel loops are normal in caliber and wall thickness. A few scattered colonic diverticuli. The appendix is normal. No acute inflammatory process. Nodes and vessels: No retroperitoneal or mesenteric adenopathy by size criteria. Inferior vena cava is normal in morphology. Miscellaneous: Tiny fat-containing periumbilical hernia. PELVIS: Genitourinary: Bladder is distended but otherwise unremarkable. Prostatomegaly. Miscellaneous: No inguinal hernias or adenopathy. No ventral hernias. Bones: No suspicious bony lesions. Left hip total arthroplasty. No vertebral body compression fractures. IMPRESSION: Negative exam. No acute aortic syndrome. No pulmonary embolism. No acute inflammatory process identified. Dictated by: Guillermo Berumen M.D. on 04/21/2019 at 17:54 Approved by: Guillermo Berumen M.D. on 04/21/2019 at 18:13
[2019-04-21] MEDS: SODIUM CHLORIDE 0.9% 1,000 ML 1000 ML IV ×2 (16:35→17:44)
[2019-04-21] MEDS: LORazepam 2 MG/ML INJ 0.5 MG IV ×2 (16:36→19:33)
[2019-04-21 17:15] LABS: Ethanol (ETOH) 248 mg/dL
[2019-04-21 17:40] LABS: Reflexed Lactate in 2 Hours Y
[2019-04-21 18:37] LABS: pH ABG 7.48 (7.35-7.45)
[2019-04-21 18:39] LABS: Fractionated Inspired Oxygen 0.21; HCO3 ABG 14 mmol/L (22-26); Oxygen Saturation ABG 99 % (95-100); PCO2 ABG 18.9 mmHg (35-45); PO2 ABG 111 mmHg (80-100); TCO2 ABG 14 mmol/L (21-31)
--- NOTE | 2019-04-21 19:13 | PC.NURSE ---
patient to be admitted, urine POC ran, sent for culture. at bedside. Patient reports feeling better and is agreeable with admission to hospital.
[2019-04-21 19:15] LABS: Bacteria Urine None Seen
[2019-04-21 19:20] LABS: Salicylate < 1.0 mg/dL (<20)
[2019-04-21] MEDS: PANTOPRAZOLE 40 MG VIAL IV (19:33)
[2019-04-21 19:34] LABS: Culture Indicated Urine Cult Not Indicated; RBC Urine 0-1/HPF (0-5/HPF); Squamous Epithelial Cell Urine 0-1 /HPF (0-5/HPF); WBC Urine 0-1/HPF (0-5/HPF)
--- NOTE | 2019-04-21 19:42 | PC.NURSE ---
Assisted to BR, ambulatory with steady, slow gait and minimal assistance offered by staff and . Patient to receive IV Lorazepam when returns to room.
[2019-04-21 19:51] LABS: Thyroid Stimulating Hormone 3.77 uIU/mL (0.47-4.68)
--- NOTE | 2019-04-21 21:25 | PM.HP.1 ---
History of Present Illness Date Patient Seen: 04/21/19 Time Patient Seen: 21:00 Chief complaint: Shortness of breath Narrative: Patient is a 73-year-old male who sees Dr. Copeland. He has a history of cervical spinal stenosis status post fusion and 2005 as well as recent cholecystectomy in December of this year. Patient presented to the emergency department due to difficulty breathing and shortness of breath the day of admission. He denied fevers or cough. Patient states that the night before admission he could not move his arms or legs and had altered sensation throughout his body, similar to his symptoms prior to his cervical fusion. His symptoms resolved spontaneously so he did not seek care. He also states that prior to his neck surgery he had difficulty breathing much like he did today. His was concerned about his respiratory distress so brought him to the ER. He has had little appetite however denies nausea, vomiting or changes in his bowels. He admits to daily alcohol use of 3 drinks of whiskey at night and states he never drinks more than that or drinks during the day. Denies alcohol use today. He deals with chronic neck and back pain with nightly marijuana and his alcohol. He is not interested in further surgery for his neck even if indicated. At the time my exam he denied numbness or weakness in his extremities, chest pain, shortness of breath, nausea or abdominal pain. Upon specific questioning, patient denies any ingestion beyond food and alcohol. Denies exposure to carbon monoxide or fires. He states he is gone days without drinking without issues. In the ER there was initial concern for urinary retention however he was eventually able to urinate. Respiratory symptoms improved with lorazepam. Labs were remarkable for a lactate of over 9.3, elevated D-dimer, ABG with respiratory alkalosis, alcohol level of 248. CTA of the chest, abdomen and pelvis was completed to rule out PE and was negative. Also no intra-abdominal pathology. Patient was admitted for lactic acidosis management. Patient History Medical History Acid reflux (Chronic) Insomnia (Chronic) Hyperlipidemia (Chronic 02/21/11) AAA (abdominal aortic aneurysm) (Chronic ~2018) Gout (Chronic 02/21/11) Glaucoma (Chronic 02/21/11) Arthritis (Chronic) Chronic back pain (Chronic) GERD (gastroesophageal reflux disease) (Chronic ~2018) Heartburn (Chronic) Sciatica (Chronic) Chicken pox (Resolved) Measles (Resolved) Symptomatic cholelithiasis (Resolved) Surgical History Anesthesia (Resolved) Hx of fusion of cervical spine (Inactive ~08/2005) S/P laparoscopic cholecystectomy (Inactive ~11/2018) Status post left hip replacement (Inactive ~12/2012) Status post lumbar surgery (Inactive) Family History Father Bladder cancer Brother Throat cancer Grandfather Stroke Social History marital status: household members: spouse occupational status: previously employed Smoking Status: Former smoker alcohol intake: current substance use type: marijuana Family & Social History Family History Father Bladder cancer Brother Throat cancer Grandfather Stroke Social History: household members spouse Safety & Behavioral: Feels Safe in Current Yes Environment Been Physically Hurt or No Threatened By a Person Tobacco & Substance use: Smoking Status Former smoker alcohol intake current alcohol intake frequency 3 or more drinks per day Substance Use Type marijuana Meds Home Medications Medication Instructions Recorded Confirmed Type allopurinol 150 mg PO QDAY #0 02/21/11 04/21/19 History latanoprost [Xalatan] 1 drp EYE-LEFT BEDTIME #0 02/21/11 04/21/19 History simvastatin [Zocor] 10 mg PO DAILY #0 02/21/11 04/21/19 History Alphagan P 1 drp OPHTH DAILY #10 ml 01/21/13 04/21/19 History aspirin 81 mg PO QDAY #0 01/21/13 04/21/19 History cholecalciferol (vitamin D3) 2,000 - 4,000 unit PO DAILY #0 01/21/13 04/21/19 History [Vitamin D3] coenzyme Q10 60 mg PO DAILY #0 01/21/13 04/21/19 History ferrous gluconate 236 mg PO DAILY #0 01/21/13 04/21/19 History ibuprofen 800 mg PO TID #30 tab 12/21/18 04/21/19 Rx milk thistle 150 mg capsule 150 mg PO DAILY #0 cap 01/31/19 04/21/19 History baclofen 10 mg tablet 10 mg PO DAILY #90 tab 03/18/19 04/21/19 Rx quetiapine 50 mg tablet 50 mg PO BEDTIME #30 tab 03/18/19 04/21/19 Rx ranitidine HCl [Zantac] 150 mg PO DAILY PRN 04/21/19 04/21/19 History trazodone 50 mg PO BEDTIME 04/21/19 04/21/19 History Allergies Allergy/AdvReac Type Severity Reaction Status Date / Time hydrocodone Allergy Unknown Impaired Verified 04/21/19 14:24 breathing acetaminophen [From Lortab] Allergy Verified 04/21/19 14:24 methocarbamol [From Robaxin] AdvReac Mild passed Verified 04/21/19 14:24 out, felt horrible Review of Systems Constitutional Constitutional: Denies fatigue, Denies fever(s) and Denies weakness ENT Ears, Nose, Mouth, and Throat: Yes neck pain Cardiovascular Cardiovascular: Denies chest pain, Denies leg swelling, Reports shortness of breath and Reports shortness of breath with activity Respiratory Respiratory: Denies cough, Reports dyspnea, Reports dyspnea on exertion and Denies wheezing Gastrointestinal Gastrointestinal: Denies abdominal pain, Denies change in bowel habits and Denies nausea Genitourinary Genitourinary: Reports difficulty urinating Musculoskeletal Musculoskeletal: Denies abnormal gait, Reports back pain, Reports neck pain and Denies tingling Neurologic Neurologic: Denies abnormal gait, Denies sensory deficit, Denies tingling and Denies weakness Endocrine Endocrine: Denies fatigue Allergic/Immunologic Allergic/Immunologic: Denies wheezing Exam Vital Signs (past 8 hours): - 04/21/19 14:19 04/21/19 14:24 04/21/19 14:45 Temperature 98.2 F 97.5 F L Pulse Rate 95 H 111 H 96 H Respiratory Rate 17 18 23 Blood Pressure 156/81 H Blood Pressure [Right Arm] 141/83 H Pulse Oximetry 95 99 100 04/21/19 16:16 04/21/19 18:54 04/21/19 19:51 Temperature Pulse Rate 102 H 98 H Respiratory Rate 19 20 Blood Pressure Blood Pressure [Right Arm] 141/83 H 154/96 H 167/101 H Pulse Oximetry 100 99 04/21/19 21:00 Temperature 99.1 F Pulse Rate 107 H Respiratory Rate 20 Blood Pressure 150/96 H Blood Pressure [Right Arm] Pulse Oximetry 98 Oxygen Delivery Method Room Air Oxygen Flow Rate 0 Narrative Exam Narrative: General: Thin older man. Awake and alert, no acute distress. HEENT: NCAT, EOMI, moist oral mucosa CV: Regular rate and rhythm, no murmurs, rubs or gallops Lungs: CTAB, no wheezes, rales, or rhonchi Abdomen: Soft, nontender; bowel tones active; no hepatosplenomegaly Extremities: Warm, no edema Neuro: AAO x3. Gait is slow but steady observing patient ambulating from the bathroom. Strength 5/5 bilateral upper and lower extremities. Sensation intact throughout. Objective Labs Result Diagrams: 04/21/19 15:00 04/21/19 15:00 Labs: Laboratory Results - last 24 hr 04/21/19 04/21/19 04/21/19 15:00 15:00 15:00 WBC 4.5 RBC 4.90 Hgb 16.4 Hct 46.5 MCV 94.7 MCH 33.4 MCHC 35.3 RDW 14.2 Plt Count 144 L Neut % (Auto) 53.9 Lymph % (Auto) 33.6 [place] % (Auto) 10.3 Eos % (Auto) 1.0 L Baso % (Auto) 1.2 Neut # (Auto) 2400 Lymph # (Auto) 1500 [place] # (Auto) 500 Eos # (Auto) 0 Baso # (Auto) 100 PT INR APTT D-Dimer ABG pH ABG pCO2 ABG pO2 ABG HCO3 ABG Total CO2 ABG O2 Saturation ABG Base Excess FiO2 Sodium Potassium Chloride Carbon Dioxide BUN Creatinine Estimated GFR BUN/Creatinine Ratio Glucose Lactate Calcium Magnesium 1.7 Total Bilirubin AST ALT Alkaline Phosphatase Total Creatine Kinase 163 CK-MB (CK-2) 5.74 H CK-MB (CK-2) Rel Index 3.5 Troponin I < 0.012 B-Natriuretic Peptide < 100 Total Protein Albumin Globulin Albumin/Globulin Ratio Procalcitonin 0.11 TSH Urine RBC Urine WBC Ur Squamous Epith Cells Urine Bacteria Ur Culture Indicated? Salicylates Ethyl Alcohol 04/21/19 04/21/19 04/21/19 15:00 15:00 15:00 WBC RBC Hgb Hct MCV MCH MCHC RDW Plt Count Neut % (Auto) Lymph % (Auto) [place] % (Auto) Eos % (Auto) Baso % (Auto) Neut # (Auto) Lymph # (Auto) [place] # (Auto) Eos # (Auto) Baso # (Auto) PT INR APTT D-Dimer ABG pH ABG pCO2 ABG pO2 ABG HCO3 ABG Total CO2 ABG O2 Saturation ABG Base Excess FiO2 Sodium 143 Potassium 4.2 Chloride 99 Carbon Dioxide 19 L BUN 9 Creatinine 0.70 Estimated GFR > 60.0 BUN/Creatinine Ratio 12.9 Glucose 89 Lactate Calcium 10.3 H Magnesium Total Bilirubin 1.0 AST 199 H ALT 100 H Alkaline Phosphatase 86 Total Creatine Kinase CK-MB (CK-2) CK-MB (CK-2) Rel Index Troponin I B-Natriuretic Peptide Total Protein 8.3 H Albumin 5.0 Globulin 3.3 Albumin/Globulin Ratio 1.5 Procalcitonin TSH 3.77 Urine RBC Urine WBC Ur Squamous Epith Cells Urine Bacteria Ur Culture Indicated? Salicylates Ethyl Alcohol 248 H 04/21/19 04/21/19 04/21/19 15:00 15:32 15:32 WBC RBC Hgb Hct MCV MCH MCHC RDW Plt Count Neut % (Auto) Lymph % (Auto) [place] % (Auto) Eos % (Auto) Baso % (Auto) Neut # (Auto) Lymph # (Auto) [place] # (Auto) Eos # (Auto) Baso # (Auto) PT 11.3 INR 1.0 APTT 29 D-Dimer 690 H ABG pH ABG pCO2 ABG pO2 ABG HCO3 ABG Total CO2 ABG O2 Saturation ABG Base Excess FiO2 Sodium Potassium Chloride Carbon Dioxide BUN Creatinine Estimated GFR BUN/Creatinine Ratio Glucose Lactate 9.8 H* Calcium Magnesium Total Bilirubin AST ALT Alkaline Phosphatase Total Creatine Kinase CK-MB (CK-2) CK-MB (CK-2) Rel Index Troponin I B-Natriuretic Peptide Total Protein Albumin Globulin Albumin/Globulin Ratio Procalcitonin TSH Urine RBC Urine WBC Ur Squamous Epith Cells Urine Bacteria Ur Culture Indicated? Salicylates < 1.0 Ethyl Alcohol 04/21/19 04/21/19 04/21/19 17:42 18:45 19:05 WBC RBC Hgb Hct MCV MCH MCHC RDW Plt Count Neut % (Auto) Lymph % (Auto) [place] % (Auto) Eos % (Auto) Baso % (Auto) Neut # (Auto) Lymph # (Auto) [place] # (Auto) Eos # (Auto) Baso # (Auto) PT INR APTT D-Dimer ABG pH 7.48 H ABG pCO2 18.9 L* ABG pO2 111 H ABG HCO3 14 L ABG Total CO2 14 L ABG O2 Saturation 99 ABG Base Excess -10.0 L FiO2 0.21 Sodium Potassium Chloride Carbon Dioxide BUN Creatinine Estimated GFR BUN/Creatinine Ratio Glucose Lactate 9.0 H* Calcium Magnesium Total Bilirubin AST ALT Alkaline Phosphatase Total Creatine Kinase CK-MB (CK-2) CK-MB (CK-2) Rel Index Troponin I B-Natriuretic Peptide Total Protein Albumin Globulin Albumin/Globulin Ratio Procalcitonin TSH Urine RBC 0-1/hpf Urine WBC 0-1/hpf Ur Squamous Epith Cells 0-1 /hpf Urine Bacteria None seen Ur Culture Indicated? Cult not indicated Salicylates Ethyl Alcohol Assessment & Plan (1) Acidosis, lactic: Current visit: Yes Status: Acute (2) Compensated respiratory alkalosis: Current visit: Yes Status: Acute (3) Alcohol abuse: Current visit: Yes Status: Acute (4) Chronic neck pain: Current visit: Yes Status: Acute (5) Cervical spinal stenosis: Current visit: Yes Status: Acute Assessment & Plan narrative: 73-year-old man with chronic neck and back pain secondary to spinal stenosis also with chronic alcohol use now with significant lactic acidosis, metabolic acidosis and compensatory respiratory alkalosis. Patient feels his symptoms are related to his cervical spinal stenosis and bone spurs however chronic alcohol use is the much more likely etiology. Metabolic acidosis, lactic acidosis: Most likely due to alcohol. UDS is pending. Workup negative for salicylates. I was initially concerned about some other ingestion due to the degree of lactic acidosis however patient adamantly denies any ingestion or exposure other than alcohol. AST is double that of ALT which would supports alcoholic liver damage as well. Care will continue to be supportive with IV fluids. Will trend lactate. No evidence of sepsis. Respiratory alkalosis: Symptoms have resolved and vitals normal. Continue supportive care as above. Alcohol abuse: Patient will be monitored on the [facility] protocol. Interestingly he admitted to drinking today in the ER but at the time of my interview denied it. I also believe his shared with Dr. Solis that the patient drinks far more than he is willing to admit. Patient denies alcohol withdrawal in the past and states he can go several days without drinking though I am suspicious of this. Cervical spinal stenosis: Patient is not interested in further management beyond his usual alcohol and marijuana. No further imaging ordered at this time as patient has a normal neurologic exam. I do not think his cervical spine issues are responsible for his current admission. Diet: General diet DVT prophylaxis: SCDs Code status: Full Code Disposition: Patient is admitted under observation for the time being. If his lactate has normalized and he is not having new symptoms, I suspect he may be able to discharge tomorrow after repeating his labs. Will defer further management to Dr. Copeland.
[2019-04-21] MEDS: SODIUM CHLORIDE 0.9% 1,000 ML 150 ML IV (21:43)
[2019-04-21] MEDS: TRAZODONE 50 MG TABLET PO (21:43)
[2019-04-21 22:33] LABS: Urine Amphetamines Negative (Negative); Urine Barbiturates Negative (Negative); Urine Benzodiazepines Positive (Negative); Urine Cocaine Negative (Negative); Urine MDMA Negative (Negative); Urine Methadone Negative (Negative); Urine Methamphetamines Negative (Negative); Urine Morphine/Opi cutoff 2000 Negative (Negative); Urine Oxycodone Negative (Negative); Urine Phencyclidine Negative (Negative); Urine Tetrahydrocannabinol Positive (Negative); Urine Tricyclic Antidepressant Negative (Negative)
--- NOTE | 2019-04-22 01:09 | PC.NURSE ---
Addendum entered by Yoly Araiza R.N. 04/22/19 05:38: Slept most of night. CIWA remains at 4. Denies any pain. Up to bathroom x 2 with SBA. Original Note: Patient is oriented except to day of month. Noted tremors in bilateral UE with arms extended. Denies anxiety, tactile, visual or auditory disturbances. Denies pain. CIWA is 4 and patient has alcoholic odor. Breath sounds CTA with RA sat of 99%. HRR with elevated BP of 146/92 which is improved from earlier readings. Denies nausea but does complain of GERD symptoms so medicated with Zantac. BT present and abdomen is soft/non tender. Denies dysuria, frequency or urgency. Is able to move self in bed. Reports he feels weak in bilateral LE but denies any recent falls. Wearing bilateral SCD's. Seizure pads in place. Fall risk score is moderate; bed alarm is activated.
[2019-04-22 01:13] LABS: Reflexed Lactate in 2 Hours Y
[2019-04-22 01:47] LABS: Lactate (Lactic Acid) 6.5 mmol/L (0.7-2.1)
[2019-04-22 01:47] LABS: Lactate 2HR (Lactic Acid Rflx) 4.6 mmol/L (0.7-2.1)
[2019-04-22] MEDS: SODIUM CHLORIDE 0.9% 1,000 ML 150 ML IV (04:17)
[2019-04-22 04:37] VITALS: BP 155/91; PULSE 95; RESP 20; TEMP 36.9; O2SAT 98
[2019-04-22 05:43] LABS: Add Manual Diff / Slide Review NO; Basophils Absolute Auto 0 /uL (0-100); Basophils Percent Auto 1.1 % (0-2); Eosinophils Absolute Auto 0 /uL (0-450); Eosinophils Percent Auto 0.6 % (2-4); Hematocrit 37.4 % (41-53); Hemoglobin 13.2 g/dL (13.5-17.5); Lymphocytes Absolute Auto 600 /uL (1100-4500); Mean Corpuscular HGB Conc 35.4 % (30-36); Mean Corpuscular Hemoglobin 33.6 PG (26-34); Monocytes Absolute Auto 400 /uL (0-900); Monocytes Percent Auto 10.8 % (3-14); Neutrophils Absolute Auto 2600 /uL (1500-7000); Neutrophils Percent Auto 70.5 % (50-75); Platelet Count 91 X10^3/uL (150-400); Red Blood Cell Count 3.94 X10^6/uL (4.5-5.9); Red Cell Distribution Width 14.6 % (11.6-14.8); White Blood Cell Count 3.6 X10^3/uL (4.5-11.0)
[2019-04-22 05:49] LABS: Alanine Aminotransferase 70 IU/L (21-72); Albumin 3.8 g/dL (3.5-5.0); Albumin Globulin Ratio 1.4 (1.0-2.8); Alkaline Phosphatase 55 U/L (38-126); Aspartate Aminotransferase 112 IU/L (17-59); Bilirubin Total 1.3 mg/dL (0.2-1.3); Blood Urea Nitrogen 7 mg/dL (9-20); Carbon Dioxide 22 mmol/L (22-32); Chloride 102 mmol/L (98-107); Estimated Glomerular Filt Rate > 60.0 mL/min (>60); Globulin 2.8 g/dL (1.7-4.1); Glucose 94 mg/dL (80-110); HEMOLYSIS < 15 (0-50); Potassium 3.9 mmol/L (3.4-5.1); Sodium 137 mmol/L (137-145); Total Protein 6.6 g/dL (6.3-8.2)
[2019-04-22 07:00] VITALS: BP 157/87; PULSE 97; RESP 20; TEMP 36.3; O2SAT 98
--- NOTE | 2019-04-22 08:15 | PM.DS.1 ---
History of Present Illness Date Patient Seen: 04/22/19 Time Patient Seen: 08:16 Chief complaint: Shortness of breath Narrative: Patient is a 73-year-old male who sees Dr. Copeland. He has a history of cervical spinal stenosis status post fusion and 2005 as well as recent cholecystectomy in December of this year. Patient presented to the emergency department due to difficulty breathing and shortness of breath the day of admission. He denied fevers or cough. Patient states that the night before admission he could not move his arms or legs and had altered sensation throughout his body, similar to his symptoms prior to his cervical fusion. His symptoms resolved spontaneously so he did not seek care. He also states that prior to his neck surgery he had difficulty breathing much like he did today. His was concerned about his respiratory distress so brought him to the ER. He has had little appetite however denies nausea, vomiting or changes in his bowels. He admits to daily alcohol use of 3 drinks of whiskey at night and states he never drinks more than that or drinks during the day. Denies alcohol use today. He deals with chronic neck and back pain with nightly marijuana and his alcohol. He is not interested in further surgery for his neck even if indicated. At the time my exam he denied numbness or weakness in his extremities, chest pain, shortness of breath, nausea or abdominal pain. Upon specific questioning, patient denies any ingestion beyond food and alcohol. Denies exposure to carbon monoxide or fires. He states he is gone days without drinking without issues. In the ER there was initial concern for urinary retention however he was eventually able to urinate. Respiratory symptoms improved with lorazepam. Labs were remarkable for a lactate of over 9.3, elevated D-dimer, ABG with respiratory alkalosis, alcohol level of 248. CTA of the chest, abdomen and pelvis was completed to rule out PE and was negative. Also no intra-abdominal pathology. Patient was admitted for lactic acidosis management. Discharge Providers Date of admission: 04/21/19 20:19 Discharge Date: 04/22/19 Primary care physician: Gigi Copeland MD Consults: 04/21/19 14:45 Consult to Respiratory Therapy Evaluate & Treat Comment: Physician Instructions: Evaluate and treat Discharge provider: Gigi Copeland MD Summary Discharge Diagnosis: 1. Lactic acidosis 2. Metabolic acidosis 3. Alcohol abuse 4. Chronic neck pain 5. Spinal stenosis of the cervical spine 6. Insomnia Hospital Course: Patient was admitted by the emergency department after presenting with some dyspnea. He has found have a significant metabolic acidosis which was most likely due to the lactic acidosis that was identified. The only etiology for his lactic acidosis that was readily apparent was his ethanol level. Patient had varying stories about whether not he had consumed any alcohol day of admission but his serum alcohol concentration was 248. LFTs are elevated in a pattern suggesting alcohol abuse as well. Patient not show evidence of an infectious etiology nor was any other ingestions or anything else unexpected on his toxicology screen to suggested different etiology for his metabolic/lactic acidosis Patient was rehydrated with IV fluids and monitored carefully. His lactic acidosis and metabolic acidosis resolved completely by time of discharge His mild transaminitis also was improved but not resolved at time of discharge Long discussion was held with patient and spouse regarding his ongoing use of alcohol and the obvious negative affects it has produced in him and the need to discontinue. Support and assistance was offered but declined by patient. Patient planning take a trip to [place] beginning a week from day of discharge. Discussed strategies around making that more successful trip without alcohol etc Patient's other medical problems were stable and not specifically addressed during this brief hospital stay. Status at Discharge Cognitive/behavioral status at discharge: at baseline, oriented Functional status at discharge: independent ambulation Overall status at discharge: patient is back to baseline Exam Vital Signs (past 8 hours): - 04/22/19 04:37 Temperature 98.4 F Pulse Rate 95 H Respiratory Rate 20 Blood Pressure 155/91 H Pulse Oximetry 98 Oxygen Delivery Method Room Air Oxygen Flow Rate 0 Narrative Exam Narrative: HEENT-unremarkable, normocephalic atraumatic Neck-no lymphadenopathy no bruits Lungs-clear anteriorly and posteriorly no wheezes no crackles good breath sounds Heart-regular rate and rhythm, no murmur, rub, or gallop. normal S1-S2 Abdomen-positive bowel tones, soft, nontender, nondistended, no hepatosplenomegaly, no masses palpable Neuro-normal to screening exam, gait not tested Extremities-no cyanosis clubbing or edema Objective Labs Result Diagrams: 04/22/19 05:25 04/22/19 05:25 Labs: Laboratory Results - last 24 hr 04/21/19 04/21/19 04/21/19 15:00 15:00 15:00 WBC 4.5 RBC 4.90 Hgb 16.4 Hct 46.5 MCV 94.7 MCH 33.4 MCHC 35.3 RDW 14.2 Plt Count 144 L Neut % (Auto) 53.9 Lymph % (Auto) 33.6 [place] % (Auto) 10.3 Eos % (Auto) 1.0 L Baso % (Auto) 1.2 Neut # (Auto) 2400 Lymph # (Auto) 1500 [place] # (Auto) 500 Eos # (Auto) 0 Baso # (Auto) 100 PT INR APTT D-Dimer ABG pH ABG pCO2 ABG pO2 ABG HCO3 ABG Total CO2 ABG O2 Saturation ABG Base Excess FiO2 Sodium Potassium Chloride Carbon Dioxide BUN Creatinine Estimated GFR BUN/Creatinine Ratio Glucose Lactate Calcium Magnesium 1.7 Total Bilirubin AST ALT Alkaline Phosphatase Total Creatine Kinase 163 CK-MB (CK-2) 5.74 H CK-MB (CK-2) Rel Index 3.5 Troponin I < 0.012 B-Natriuretic Peptide < 100 Total Protein Albumin Globulin Albumin/Globulin Ratio Procalcitonin 0.11 TSH Urine RBC Urine WBC Ur Squamous Epith Cells Urine Bacteria Ur Culture Indicated? Salicylates Urine Opiates Screen Ur Oxycodone Screen Urine Methadone Screen Ur Barbiturates Screen U Tricyclic Antidepress Ur Phencyclidine Scrn Ur Amphetamines Screen U Methamphetamines Scrn Ur MDMA Scrn (Ecstasy) U Benzodiazepines Scrn Urine Cocaine Screen U Marijuana (THC) Screen Ethyl Alcohol 04/21/19 04/21/19 04/21/19 15:00 15:00 15:00 WBC RBC Hgb Hct MCV MCH MCHC RDW Plt Count Neut % (Auto) Lymph % (Auto) [place] % (Auto) Eos % (Auto) Baso % (Auto) Neut # (Auto) Lymph # (Auto) [place] # (Auto) Eos # (Auto) Baso # (Auto) PT INR APTT D-Dimer ABG pH ABG pCO2 ABG pO2 ABG HCO3 ABG Total CO2 ABG O2 Saturation ABG Base Excess FiO2 Sodium 143 Potassium 4.2 Chloride 99 Carbon Dioxide 19 L BUN 9 Creatinine 0.70 Estimated GFR > 60.0 BUN/Creatinine Ratio 12.9 Glucose 89 Lactate Calcium 10.3 H Magnesium Total Bilirubin 1.0 AST 199 H ALT 100 H Alkaline Phosphatase 86 Total Creatine Kinase CK-MB (CK-2) CK-MB (CK-2) Rel Index Troponin I B-Natriuretic Peptide Total Protein 8.3 H Albumin 5.0 Globulin 3.3 Albumin/Globulin Ratio 1.5 Procalcitonin TSH 3.77 Urine RBC Urine WBC Ur Squamous Epith Cells Urine Bacteria Ur Culture Indicated? Salicylates Urine Opiates Screen Ur Oxycodone Screen Urine Methadone Screen Ur Barbiturates Screen U Tricyclic Antidepress Ur Phencyclidine Scrn Ur Amphetamines Screen U Methamphetamines Scrn Ur MDMA Scrn (Ecstasy) U Benzodiazepines Scrn Urine Cocaine Screen U Marijuana (THC) Screen Ethyl Alcohol 248 H 04/21/19 04/21/19 04/21/19 15:00 15:32 15:32 WBC RBC Hgb Hct MCV MCH MCHC RDW Plt Count Neut % (Auto) Lymph % (Auto) [place] % (Auto) Eos % (Auto) Baso % (Auto) Neut # (Auto) Lymph # (Auto) [place] # (Auto) Eos # (Auto) Baso # (Auto) PT 11.3 INR 1.0 APTT 29 D-Dimer 690 H ABG pH ABG pCO2 ABG pO2 ABG HCO3 ABG Total CO2 ABG O2 Saturation ABG Base Excess FiO2 Sodium Potassium Chloride Carbon Dioxide BUN Creatinine Estimated GFR BUN/Creatinine Ratio Glucose Lactate 9.8 H* Calcium Magnesium Total Bilirubin AST ALT Alkaline Phosphatase Total Creatine Kinase CK-MB (CK-2) CK-MB (CK-2) Rel Index Troponin I B-Natriuretic Peptide Total Protein Albumin Globulin Albumin/Globulin Ratio Procalcitonin TSH Urine RBC Urine WBC Ur Squamous Epith Cells Urine Bacteria Ur Culture Indicated? Salicylates < 1.0 Urine Opiates Screen Ur Oxycodone Screen Urine Methadone Screen Ur Barbiturates Screen U Tricyclic Antidepress Ur Phencyclidine Scrn Ur Amphetamines Screen U Methamphetamines Scrn Ur MDMA Scrn (Ecstasy) U Benzodiazepines Scrn Urine Cocaine Screen U Marijuana (THC) Screen Ethyl Alcohol 04/21/19 04/21/19 04/21/19 17:42 18:45 19:05 WBC RBC Hgb Hct MCV MCH MCHC RDW Plt Count Neut % (Auto) Lymph % (Auto) [place] % (Auto) Eos % (Auto) Baso % (Auto) Neut # (Auto) Lymph # (Auto) [place] # (Auto) Eos # (Auto) Baso # (Auto) PT INR APTT D-Dimer ABG pH 7.48 H ABG pCO2 18.9 L* ABG pO2 111 H ABG HCO3 14 L ABG Total CO2 14 L ABG O2 Saturation 99 ABG Base Excess -10.0 L FiO2 0.21 Sodium Potassium Chloride Carbon Dioxide BUN Creatinine Estimated GFR BUN/Creatinine Ratio Glucose Lactate 9.0 H* Calcium Magnesium Total Bilirubin AST ALT Alkaline Phosphatase Total Creatine Kinase CK-MB (CK-2) CK-MB (CK-2) Rel Index Troponin I B-Natriuretic Peptide Total Protein Albumin Globulin Albumin/Globulin Ratio Procalcitonin TSH Urine RBC 0-1/hpf Urine WBC 0-1/hpf Ur Squamous Epith Cells 0-1 /hpf Urine Bacteria None seen Ur Culture Indicated? Cult not indicated Salicylates Urine Opiates Screen Ur Oxycodone Screen Urine Methadone Screen Ur Barbiturates Screen U Tricyclic Antidepress Ur Phencyclidine Scrn Ur Amphetamines Screen U Methamphetamines Scrn Ur MDMA Scrn (Ecstasy) U Benzodiazepines Scrn Urine Cocaine Screen U Marijuana (THC) Screen Ethyl Alcohol 04/21/19 04/21/19 04/22/19 22:05 23:08 01:20 WBC RBC Hgb Hct MCV MCH MCHC RDW Plt Count Neut % (Auto) Lymph % (Auto) [place] % (Auto) Eos % (Auto) Baso % (Auto) Neut # (Auto) Lymph # (Auto) [place] # (Auto) Eos # (Auto) Baso # (Auto) PT INR APTT D-Dimer ABG pH ABG pCO2 ABG pO2 ABG HCO3 ABG Total CO2 ABG O2 Saturation ABG Base Excess FiO2 Sodium Potassium Chloride Carbon Dioxide BUN Creatinine Estimated GFR BUN/Creatinine Ratio Glucose Lactate 6.5 H* 4.6 H* Calcium Magnesium Total Bilirubin AST ALT Alkaline Phosphatase Total Creatine Kinase CK-MB (CK-2) CK-MB (CK-2) Rel Index Troponin I B-Natriuretic Peptide Total Protein Albumin Globulin Albumin/Globulin Ratio Procalcitonin TSH Urine RBC Urine WBC Ur Squamous Epith Cells Urine Bacteria Ur Culture Indicated? Salicylates Urine Opiates Screen Negative Ur Oxycodone Screen Negative Urine Methadone Screen Negative Ur Barbiturates Screen Negative U Tricyclic Antidepress Negative Ur Phencyclidine Scrn Negative Ur Amphetamines Screen Negative U Methamphetamines Scrn Negative Ur MDMA Scrn (Ecstasy) Negative U Benzodiazepines Scrn Positive H Urine Cocaine Screen Negative U Marijuana (THC) Screen Positive H Ethyl Alcohol 04/22/19 04/22/19 04/22/19 05:25 05:25 05:25 WBC 3.6 L RBC 3.94 L Hgb 13.2 L Hct 37.4 L MCV 95.0 MCH 33.6 MCHC 35.4 RDW 14.6 Plt Count 91 L Neut % (Auto) 70.5 Lymph % (Auto) 17.0 L [place] % (Auto) 10.8 Eos % (Auto) 0.6 L Baso % (Auto) 1.1 Neut # (Auto) 2600 Lymph # (Auto) 600 L [place] # (Auto) 400 Eos # (Auto) 0 Baso # (Auto) 0 PT INR APTT D-Dimer ABG pH ABG pCO2 ABG pO2 ABG HCO3 ABG Total CO2 ABG O2 Saturation ABG Base Excess FiO2 Sodium 137 Potassium 3.9 Chloride 102 Carbon Dioxide 22 BUN 7 L Creatinine 0.50 L Estimated GFR > 60.0 BUN/Creatinine Ratio 14.0 Glucose 94 Lactate 1.0 Calcium 8.0 L Magnesium Total Bilirubin 1.3 AST 112 H ALT 70 Alkaline Phosphatase 55 Total Creatine Kinase CK-MB (CK-2) CK-MB (CK-2) Rel Index Troponin I B-Natriuretic Peptide Total Protein 6.6 Albumin 3.8 Globulin 2.8 Albumin/Globulin Ratio 1.4 Procalcitonin TSH Urine RBC Urine WBC Ur Squamous Epith Cells Urine Bacteria Ur Culture Indicated? Salicylates Urine Opiates Screen Ur Oxycodone Screen Urine Methadone Screen Ur Barbiturates Screen U Tricyclic Antidepress Ur Phencyclidine Scrn Ur Amphetamines Screen U Methamphetamines Scrn Ur MDMA Scrn (Ecstasy) U Benzodiazepines Scrn Urine Cocaine Screen U Marijuana (THC) Screen Ethyl Alcohol Discharge Plan Discharge Plan Patient Disposition: Home Discharge Med Rec/Prescriptions Prescriptions: Continued allopurinol 300 MG tablet 150 mg PO QDAY Qty: 0 RF: 0 latanoprost [Xalatan] 0.005 % drops 1 drp EYE-LEFT BEDTIME Qty: 0 RF: 0 simvastatin [Zocor] 10 MG tablet 10 mg PO DAILY Qty: 0 RF: 0 coenzyme Q10 60 mg Capsule 60 mg PO DAILY Qty: 0 RF: 0 aspirin 81 MG tablet,delayed release (DR/EC) 81 mg PO QDAY Qty: 0 RF: 0 Alphagan P 0.1 % drops 1 drp OPHTH DAILY Qty: 10 RF: 0 ferrous gluconate 236 mg (27 mg iron) Tablet 236 mg PO DAILY Qty: 0 RF: 0 cholecalciferol (vitamin D3) [Vitamin D3] 1,000 unit Capsule 2,000 - 4,000 unit PO DAILY Qty: 0 RF: 0 milk thistle 150 mg capsule 150 mg PO DAILY Qty: 0 RF: 0 baclofen 10 mg tablet 10 mg PO DAILY Qty: 90 RF: 3 quetiapine 50 mg tablet 50 mg PO BEDTIME Qty: 30 RF: 4 ibuprofen 800 mg tablet 800 mg PO TID Qty: 30 RF: 1 trazodone 50 mg tablet 50 mg PO BEDTIME RF: 0 ranitidine HCl [Zantac] 150 mg tablet 150 mg PO DAILY PRN (Reason: Heartburn) RF: 0 Follow up/Referrals: Gigi Copeland MD [Primary Care Provider] - 6 Weeks (May 2019) Provider Discharge Instructions Diet: Diet as Tolerated Discharge Data Primary Care Provider: Gigi Copeland Attending Provider: Gigi Copeland Admit Date/Time: 04/21/19 20:19
[2019-04-22] MEDS: THIAMINE 100 MG TABLET PO (08:38)
[2019-04-22] MEDS: FOLIC ACID 1 MG TABLET PO (08:38)
[2019-04-22] MEDS: MULTIVITAMIN 1 TABLET 1 TAB PO (08:38)
[2019-04-22 09:12] VITALS: O2SAT 98
--- NOTE | 2019-04-22 09:26 | PC.NURSE ---
Pt discharged with spouse, wheelchair and [employer]SE [employer]ACTITIONER escort to private vehicle, however, pt was ambulatory with a steady gait. Instructions and follow up care reviewed with pt and spouse. All questions answered.
--- NOTE | 2019-04-22 10:45 | CM.DANOTE ---
Discharge Planning/Care Management DCP: case received and discussed in Team Rounds. A d/c order for home setting was noted at that time. Pt is a 73 year old male who admitted last night to care of [facility]. PCP: Dr. Copeland saw him today and deemed him stable for the home setting. Payer: Medicare and [facility] Stephanie Went after rounds to check in with pt. He had already left for home in the company of his . CM Discharge Assessment Start: 04/22/19 10:44 Freq: Status: Active Protocol: Document 04/22/19 10:44 ITV (Rec: 04/22/19 10:45 ITV [id number]) Discharge Planning Assessment Advance Directives? Yes History Provided By Medical Record Prior Living Arrangements House Household Members spouse Is patient alert and oriented? Yes Review Status In Process
== END 2019-04-22 09:28 | disposition home or self-care (01) ==
LOC: ED 19:05 → AC 20:19
PROVIDERS: Admitting Provider Family Medicine; Emergency Provider Emergency Medicine; Family Provider Internal Medicine; PCP Internal Medicine; Visit Provider Internal Medicine
DX: E87.2 Acidosis (principal); E87.3 Alkalosis; F10.10 Alcohol abuse, uncomplicated; Y90.8 Blood alcohol level of 240 mg/100 ml or more; R06.02 Shortness of breath; G89.29 Other chronic pain; M54.2 Cervicalgia; M48.02 Spinal stenosis, cervical region
CPT/HCPCS: 36415; 36591; 36600; 71045; 71275; 74174; 80053; 80305; 80320; 80329; 81003; 81015; 82550; 82553; 82805; 83605; 83735; 83880; 83930; 84145; 84443; 84484; 85025; 85379; 85610; 85730; 87040; 93005; 94640; 96361; 96374; 96375; 96376; 99217; 99220; 99284; 99285; G0378; C9113; G0480; J2060

== ENCOUNTER → 2019-09-16 06:53 | Outpatient (CLI) | payer MEDICARE, BC, SELFPAY ==
[2019-04-22 08:42] VITALS: BMI 23.7
--- NOTE | 2019-09-16 | DI.US.S_ITS ---
PROCEDURE: US CAROTID DOPPLER BI INDICATIONS: VISION CHANGES TECHNIQUE: Color and pulse Doppler interrogation was performed of both carotid systems, with image documentation and velocity measurements. COMPARISON: None. FINDINGS: Stenosis calculations are based on SRU (Society of Radiologists in Ultrasound) criteria. Right side: Brachial blood pressure: 108/66 mm Hg. Common carotid artery peak systolic velocity: 109 cm/sec. Internal carotid artery peak systolic velocity: 60 cm/sec. Internal carotid artery end diastolic velocity: 20 cm/sec. External carotid artery peak systolic velocity: 94 cm/sec. ICA/CCA peak systolic ratio: 0.55. Watts scale imaging description: Small sessile calcific foci in the proximal right internal carotid artery without causing subjective luminal stenosis. Minimal spectral broadening the waveform in the mid internal carotid artery. Percent internal carotid artery stenosis: Less than 50%. Vertebral artery: Flow direction is antegrade. Left side: Brachial blood pressure: 118/67 mm Hg. Common carotid artery peak systolic velocity: 125 cm/sec. Internal carotid artery peak systolic velocity: 66 cm/sec. Internal carotid artery end diastolic velocity: 20 cm/sec. External carotid artery peak systolic velocity: 84 cm/sec. ICA/CCA peak systolic ratio: 0.53. Watts scale imaging description: A small foci of polypoid calcifications at the right carotid bulb and extending into the right external carotid artery primarily without alteration of waveforms. Percent internal carotid artery stenosis: Less than 50%. Vertebral artery: Flow direction is antegrade. IMPRESSION: 1. No hemodynamically significant stenosis in either carotid system. 2. Minor atheromatous calcifications bilaterally resulting in a less than 50% internal carotid artery stenoses. 3. Antegrade vertebral artery flow bilaterally. Dictated by: Nan Bolivar M.D. on 09/16/2019 at 8:31 Approved by: Nan Bolivar M.D. on 09/16/2019 at 8:37
== END ==
PROVIDERS: PCP Internal Medicine; Visit Provider Internal Medicine
DX: H53.121 Transient visual loss, right eye (principal)
CPT/HCPCS: 93880

== ENCOUNTER → 2019-11-10 09:39 | Outpatient (CLI) | payer MEDICARE, BC, SELFPAY ==
[2019-04-22 08:42] VITALS: BMI 23.7
--- NOTE | 2019-11-10 09:40 | DI.US.S_ITS ---
PROCEDURE: US RETRO PERITONEAL LIMITED INDICATIONS: F/U AAA TECHNIQUE: Real time scanning was performed of the aorta and iliac arteries, with image documentation. COMPARISON: [facility], , US ABDOMEN COMPLETE, 03/22/2019, 8:22. [facility], , US ABDOMEN COMPLETE, 12/15/2018, 11:25. FINDINGS: Aorta: Proximal aortic diameter measures 2.5 cm. Mid-aorta measures 1.6 cm. Distal aortic diameter is 3.1 cm. Iliac arteries: Right common iliac artery measures 1.2 cm. Left common iliac artery measures 1.3 cm. 1 IMPRESSION: Mild aneurysmal dilatation the distal aorta measuring up to 3.1 cm. 3 year followup recommended. Dictated by: Denilson De Santiago [facility] Interpreted: Salazar Lambert MD on 11/10/2019 at 17:23 Approved by: Salazar Lambert M.D. on 11/10/2019 at 17:53
[2019-11-10 11:39] LABS: Alanine Aminotransferase 22 IU/L (<50); Albumin 4.3 g/dL (3.5-5.0); Albumin Globulin Ratio 1.4 (1.0-2.8); Alkaline Phosphatase 54 U/L (38-126); Aspartate Aminotransferase 41 IU/L (17-59); BUN Creatinine Ratio 18.2 (6-22); Bilirubin Total 0.7 mg/dL (0.2-1.3); Blood Urea Nitrogen 14 mg/dL (9-20); Carbon Dioxide 28 mmol/L (22-32); Chloride 106 mmol/L (98-107); Cholesterol 186 mg/dL (140-199); Estimated Glomerular Filt Rate > 60.0 mL/min (>60); Globulin 3.1 g/dL (1.7-4.1); Glucose 93 mg/dL (80-110); HDL Cholesterol 48 mg/dL (40-60); HEMOLYSIS < 15 (0-50); LDL Cholesterol Calculated 78 mg/dL (<100); Potassium 4.4 mmol/L (3.4-5.1); Sodium 140 mmol/L (137-145); Total Protein 7.4 g/dL (6.3-8.2); Triglycerides 302 mg/dL (35-150)
[2019-11-10 11:43] LABS: C-Reactive Protein Quant < 0.5 mg/dL (<1.0)
[2019-11-10 12:10] LABS: Prostate Specific Antigen Scrn 0.455 ng/mL (0.1-4.0)
== END ==
PROVIDERS: PCP Internal Medicine; Referring Provider Internal Medicine; Visit Provider Internal Medicine
DX: I71.4 Abdominal aortic aneurysm, without rupture (principal); Z12.5 Encounter for screening for malignant neoplasm of prostate; E78.5 Hyperlipidemia, unspecified; G89.29 Other chronic pain; K21.9 Gastro-esophageal reflux disease without esophagitis; M48.02 Spinal stenosis, cervical region; M54.2 Cervicalgia
CPT/HCPCS: 36415; 76775; 80053; 80061; 86140; G0103

== ENCOUNTER → 2020-04-23 08:10 | Outpatient (CLI) | payer MEDICARE, BC, SELFPAY ==
[2019-04-22 08:42] VITALS: BMI 23.7
[2020-04-23 08:55] LABS: Alanine Aminotransferase 27 IU/L (<50); Albumin 4.2 g/dL (3.5-5.0); Albumin Globulin Ratio 1.5 (1.0-2.8); Alkaline Phosphatase 48 U/L (38-126); Aspartate Aminotransferase 47 IU/L (17-59); BUN Creatinine Ratio 12.8 (6-22); Bilirubin Total 0.9 mg/dL (0.2-1.3); Blood Urea Nitrogen 10 mg/dL (9-20); Calcium 8.8 mg/dL (8.4-10.2); Carbon Dioxide 27 mmol/L (22-32); Chloride 105 mmol/L (98-107); Cholesterol 138 mg/dL (140-199); Estimated Glomerular Filt Rate > 60.0 mL/min (>60); Globulin 2.8 g/dL (1.7-4.1); Glucose 98 mg/dL (80-110); HDL Cholesterol 53 mg/dL (40-60); HEMOLYSIS < 15 (0-50); LDL Cholesterol Calculated 38 mg/dL (<100); Potassium 3.8 mmol/L (3.4-5.1); Sodium 138 mmol/L (137-145); Triglycerides 234 mg/dL (35-150); Uric Acid 6.7 mg/dL (3.5-8.5)
== END ==
PROVIDERS: PCP Internal Medicine; Referring Provider Internal Medicine; Visit Provider Internal Medicine
DX: M10.9 Gout, unspecified (principal); E78.2 Mixed hyperlipidemia; I71.2 Thoracic aortic aneurysm, without rupture; I71.4 Abdominal aortic aneurysm, without rupture
CPT/HCPCS: 36415; 80053; 80061; 84550

== ENCOUNTER 2020-04-24 18:50 | Observation (INO) | payer MEDICARE, BC, SELFPAY ==
[2019-04-22 08:42] VITALS: BMI 23.7
[2020-04-24] VITALS (19 sets, daily range): BP systolic 95–182; BP diastolic 51–98; PULSE 84–102; RESP 11–31; O2SAT 92–99; BMI 24.5
--- NOTE | 2020-04-24 | DI.CT.S_ITS ---
PROCEDURE: CT HEAD/BRAIN WO CON INDICATIONS: TRAUMA TECHNIQUE: Noncontrast 4.5 mm thick angled axial sections acquired from the foramen magnum to the vertex, with coronal and sagittal reformats. For radiation dose reduction, the following was used: automated exposure control, adjustment of mA and/or kV according to patient size. COMPARISON: None. FINDINGS: Image quality: Excellent. CSF spaces: Basal cisterns are patent. No extra-axial fluid collections. Ventricles are normal in size and shape. Brain: No midline shift. No acute intracranial hemorrhage or mass effect. Watts-white matter interface is normal. Skull and face: Calvarium and visualized facial bones are intact, without suspicious lesions. Sinuses: Visualized sinuses and mastoids are clear. IMPRESSION: No acute intracranial hemorrhage or mass effect. No skull fracture. Dictated by: Riaz Hyatt M.D. on 04/24/2020 at 19:22 Approved by: Riaz Hyatt M.D. on 04/24/2020 at 19:24
--- NOTE | 2020-04-24 | DI.CT.S_ITS ---
PROCEDURE: CT CHEST ABD PEL W CON INDICATIONS: TRAUMA TECHNIQUE: After the administration of intravenous contrast, 5 mm thick sections acquired from the lung apices to the symphysis. 2.5 mm thick coronal and sagittal reformats were acquired. Additional 7 mm thick coronal maximum intensity projection (MIP) reformats acquired through the lungs. Optional 10-minute delayed imaging may be performed from the kidneys to the bladder. For radiation dose reduction, the following was used: automated exposure control, adjustment of mA and/or kV according to patient size. COMPARISON: [facility], CT, CT ANGIO CHEST ABDOMEN PELVIS, 04/21/2019, 16:53. FINDINGS: Image quality: Excellent. CHEST: Lungs: No pulmonary contusions or lacerations. No acute airspace opacities. No pneumothorax or hemothorax. Central and peripheral airways appear patent and normal in caliber. Mediastinum: No mediastinal hematomas. Heart size is normal. No pericardial effusion. Thoracic aorta and pulmonary arteries demonstrate normal size and enhancement. Atherosclerotic calcifications are seen in the aorta and the coronary arteries. No mediastinal or hilar adenopathy. Esophagus is normal in caliber. A small hiatal hernia is present. Chest wall: No rib fractures. No subcutaneous emphysema. No axillary or supraclavicular adenopathy. Thyroid gland appears normal. ABDOMEN: Solid organs: Liver is normal in size and enhancement, without lacerations. Gallbladder is surgically absent.. Biliary system is non-dilated. Pancreas enhances normally, without transection. Spleen is normal in size and enhancement, without lacerations. No adrenal hematomas. Both kidneys enhance normally, without hydronephrosis or lacerations. Peritoneum and bowel: No free fluid or air. Unenhanced bowel loops demonstrate normal wall thickness and caliber. Nodes and vessels: No retroperitoneal or mesenteric adenopathy. Aorta and inferior vena cava are normal in size and enhancement. Miscellaneous: No ventral hernias. PELVIS: Genitourinary: Bladder wall thickness is normal. Miscellaneous: No inguinal hernias or adenopathy. Bones: Pelvic ring and hip joints appear intact. No vertebral compression fractures. IMPRESSION: Dictated by: Riaz Hyatt M.D. on 04/24/2020 at 19:29 Approved by: Riaz Hyatt M.D. on 04/24/2020 at 19:33
--- NOTE | 2020-04-24 | DI.CT.S_ITS ---
PROCEDURE: CT CERVICAL SPINE WO CON INDICATIONS: TRAUMA TECHNIQUE: Noncontrast 3 mm thick sections acquired from the skull base to the T4 level. Sagittal and coronal reformats were then constructed. For radiation dose reduction, the following was used: automated exposure control, adjustment of mA and/or kV according to patient size. COMPARISON: None. FINDINGS: Image quality: Excellent. Bones: Postsurgical changes are seen from anterior fusion at the C5-6 level with intact metallic hardware. Multilevel degenerative changes are seen in the cervical spine with degenerative disc disease and facet hypertrophy. No acute fracture is identified. Soft tissues: Prevertebral soft tissues are normal in thickness. No paravertebral hematomas. No apical pneumothoraces. IMPRESSION: 1. No acute cervical spine fracture. 2. Postsurgical changes from anterior fusion of C5-6 with intact hardware. 3. Multilevel degenerative changes in the cervical spine Dictated by: Riaz Hyatt M.D. on 04/24/2020 at 19:24 Approved by: Riaz Hyatt M.D. on 04/24/2020 at 19:28
--- NOTE | 2020-04-24 19:17 | DI.RAD.S_ITS ---
PROCEDURE: XR PELVIS 1-2V INDICATIONS: Fall/injury TECHNIQUE: Single AP view of the pelvis acquired. COMPARISON: [facility], , PELVIS 1 OR 2 VIEWS, 01/28/2013, 16:55. FINDINGS: Bones: Left hip arthroplasty is noted. No acute fractures or dislocations. No suspicious bony lesions. Moderate degenerative changes are seen in the right hip with joint space narrowing and marginal osteophyte formation. Degenerative changes are seen in the lower lumbar spine. Soft tissues: Visualized bowel gas pattern is normal. No suspicious soft tissue calcifications. Contrast material is seen within the bladder related to CT performed earlier the same day. A Lopez catheter is noted in the bladder. IMPRESSION: No acute osseous abnormality. Dictated by: Riaz Hyatt M.D. on 04/24/2020 at 20:05 Approved by: Riaz Hyatt M.D. on 04/24/2020 at 20:06
--- NOTE | 2020-04-24 19:17 | DI.RAD.S_ITS ---
PROCEDURE: XR FEMUR LT MIN 2V INDICATIONS: Fall/injury TECHNIQUE: 4 views of the femur were acquired. COMPARISON: None. FINDINGS: Bones: Postsurgical changes are seen from left hip arthroplasty. Metallic components are in expected position without signs of loosening or perihardware fracture. The remainder of the femur is intact. No suspicious bony lesions. Soft tissues: No suspicious soft tissue calcifications or masses. A Lopez catheter is seen in the bladder. IMPRESSION: Left hip arthroplasty is seen. No acute fracture or dislocation. Dictated by: Riaz Hyatt M.D. on 04/24/2020 at 20:06 Approved by: Riaz Hyatt M.D. on 04/24/2020 at 20:08
--- NOTE | 2020-04-24 19:20 | ED.FALL ---
HPI - Fall General Chief Complaint: Trauma Stated Complaint: Modified Trauma Time Seen by Provider: 04/24/20 18:58 Source: patient and EMS Mode of arrival: EMS History of Present Illness HPI Narrative: Patient brought in by ambulance from home. According to at the scene patient is chronic daily alcohol abuser. Today patient was upset due to of their pet dog. Has been drinking alcohol. He is walking up the carpeted steps at home, 5 steps up and fell backwards down to ground floor hitting his head on the backside. Had 2 minutes loss of consciousness. Awoke to be confused according to spouse as well as EMS when they arrived. No vomiting. No seizures. Patient became more responsive EN route here. Patient complains of left pelvis/hip pain. Has prosthesis of the left hip. Patient immediately brought to CT scan for trauma scanning. Patient brought to room 6 for further evaluation. ATLS guidelines followed. Please see nurse notes for primary survey. Patient brought in by EMS boarded and collared. Cervical collar remains in place with spinal precautions for log-rolling. Cleared off the board. No midline tenderness or step-off. No skin injury. No shortening or rotation of the left lower extremity. All of the clothing removed. Related Data Home Medications Medication Instructions Recorded Confirmed latanoprost [Xalatan] 1 drp EYE-LEFT BEDTIME #0 02/21/11 04/24/20 Alphagan P 1 drp OPHTH DAILY #10 ml 01/21/13 04/24/20 aspirin 81 mg PO QDAY #0 01/21/13 04/24/20 cholecalciferol (vitamin D3) 2,000 - 4,000 unit PO DAILY #0 01/21/13 04/24/20 [Vitamin D3] coenzyme Q10 60 mg PO DAILY #0 01/21/13 04/24/20 ferrous gluconate 236 mg PO DAILY #0 01/21/13 04/24/20 milk thistle 150 mg capsule 150 mg PO DAILY #0 cap 01/31/19 04/24/20 ibuprofen 800 mg tablet 400 mg PO TID PRN tab 09/19/19 04/24/20 Previous Rx's Medication Instructions Recorded baclofen 10 mg tablet 10 mg PO DAILY #90 tab 03/18/19 rosuvastatin 10 mg tablet 10 mg PO DAILY #90 tab 09/19/19 allopurinol 300 mg tablet 150 mg PO QDAY #90 tab 04/03/20 quetiapine 50 mg tablet 50 mg PO BEDTIME #90 tab 04/04/20 trazodone 50 mg tablet 50 mg PO BEDTIME #30 tab 04/04/20 Allergies Allergy/AdvReac Type Severity Reaction Status Date / Time hydrocodone Allergy Unknown Impaired Verified 09/19/19 10:16 breathing acetaminophen [From Lortab] Allergy Verified 09/19/19 10:16 methocarbamol [From Robaxin] AdvReac Mild passed Verified 09/19/19 10:16 out, felt horrible Review of Systems Review of Systems Narrative: GENERAL: Denies chills, fatigue, malaise, fever, sweats. HEENT: Denies sinus pain, ear pain, sore throat, difficulty swallowing, dizziness. RESPIRATORY: Denies dyspnea, cough, wheezing, hemoptysis, sputum. CARDIOVASCULAR: Denies chest pain, palpitations, orthopnea, edema, GASTROINTESTINAL: Denies nausea, vomiting, abdominal pain, diarrhea, constipation, melena. : Denies dysuria, frequency, incontinence, hematuria, urinary retention. MUSCULOSKELETAL: denies weakness, complains joint pain, or bony pain SKIN: Denies rash, skin lesions, or other NEUROLOGIC: Denies weakness, headache, numbness, change in speech, complains of confusion, denies seizures, incoordination. PSYCHIATRIC: No concerning psychosocial issues. ROS Unobtainable: All systems reviewed & are unremarkable except as noted in HPI and below Patient History Medical History AAA (abdominal aortic aneurysm) (Chronic ~2018) Acid reflux (Chronic) Arthritis (Chronic) Chicken pox (Resolved) Chronic back pain (Chronic) GERD (gastroesophageal reflux disease) (Chronic ~2018) Glaucoma (Chronic 02/21/11) Gout (Chronic 02/21/11) Heartburn (Chronic) Hyperlipidemia (Chronic 02/21/11) Insomnia (Chronic) Measles (Resolved) Sciatica (Chronic) Symptomatic cholelithiasis (Resolved) Thoracic aortic aneurysm (Chronic) Surgical History Anesthesia (Resolved) Hx of fusion of cervical spine (Inactive ~08/2005) S/P laparoscopic cholecystectomy (Inactive ~11/2018) Status post left hip replacement (Inactive ~12/2012) Status post lumbar surgery (Inactive) Family History Father Bladder cancer Brother Throat cancer Grandfather Stroke Social History marital status: household members: spouse occupational status: previously employed Smoking Status: Current some day smoker alcohol intake: current substance use type: marijuana Smoking Status: Former smoker alcohol intake frequency: 3 or more drinks per day Substance Use Type: marijuana Exam Narrative Exam Narrative: GENERAL: patient appears stated age. Well-nourished, well-developed patient, in moderate pain distress, not toxic HEAD: Atraumatic. Normocephalic. No crepitus or step-off of scalp or face. EYES: Pupils equal round and reactive. Extraocular motions intact. No scleral icterus. No injection or drainage. ENT: Nose without bleeding, purulent drainage. Throat without erythema, tonsillar hypertrophy or exudate. Airway patent. NECK: Trachea midline. Non tender C-collar in place but able to examine no midline tenderness or step-off CARDIOVASCULAR: Regular rate and rhythm without murmurs, gallops, or rubs. RESPIRATORY: Clear to auscultation. Breath sounds equal bilaterally. No wheezes, rales, or rhonchi. GASTROINTESTINAL: Abdomen soft, non-tender, nondistended. No expanding mass. Strong bilateral femoral pulses. No peritoneal signs. No pain out of portion exam EXTREMITIES: No edema or joint tenderness. Tenderness to the left hemipelvis and hip. No gross deformity. No shortening or rotation the left lower extremity. Both legs warm soft and pink, strong pedal pulses BACK: Nontender without deformity or crepitance. No flank tenderness. NEURO: Patient is awake and alert and responds to name and date of . Follows directions and commands. At times appears to have absence seizure lasting about 1 minute SKIN: No rash or erythema of visible areas PSYCH: Not anxious, is cooperative Initial Vital Signs Initial Vital Signs: Vital Signs Pulse Rate 102 H 04/24/20 19:09 Respiratory Rate 31 H 04/24/20 19:09 Blood Pressure 182/98 H 04/24/20 19:09 Pulse Oximetry 95 04/24/20 19:09 Course Course Course Narrative: Will need observation due to concussion and alcohol on board. C collar cleared...CT cspine no fx Decision to Admit Date: 04/24/20 Decision to Admit time: 21:51 Orders Ordered: Calcium Carbonate (Tums) 500 mg PO PRN PRN PRN Reason: Dyspepsia Morphine Sulfate (Morphine) 2 mg IV Q4HR PRN PRN Reason: Pain, Moderate (4-6) Last Admin: 04/24/20 22:02 Dose: 2 mg Documented by: ERAN Ondansetron HCl (Zofran) 4 mg IV Q6HR PRN PRN Reason: Nausea And Vomiting Oxycodone HCl (Percolone) 5 mg PO Q4HR PRN PRN Reason: Pain, Moderate (4-6) Last Admin: 04/25/20 00:38 Dose: 5 mg Documented by: CRUZ Discontinued Medications Hydromorphone HCl (Dilaudid) 1 mg IV NOW ONE Stop: 04/24/20 19:24 Last Admin: 04/24/20 22:04 Dose: Not Given Documented by: DARSHAN Reevaluation(s) Reevaluation #1: Patient more awake now. Answers questions appropriately. Does recall the fall. Denies any pain before the fall. No neuro complaints of for the fall. at bedside Time: 21:25 Consultations Consultation #1: Spoke with primary on-call, Dr. barrientos, admit for dr copeland Time: 21:51 Vital Signs Vital signs: Vital Signs - 8 hr 04/24/20 20:45 04/24/20 21:00 04/24/20 21:15 Pulse Rate 89 86 85 Respiratory Rate Blood Pressure 95/51 L 112/59 L 108/59 L Pulse Oximetry 93 94 94 04/24/20 21:30 04/24/20 21:44 04/24/20 21:45 Pulse Rate 91 H 90 90 Respiratory Rate 12 12 12 Blood Pressure 124/71 115/68 Pulse Oximetry 96 96 96 MDM - Fall Differential Diagnosis Differential diagnosis: Likely concussion with loss of consciousness and other (Alcohol intoxication) Lab Data Attestation: I reviewed the patient's lab results. Result diagrams: 04/24/20 19:27 04/24/20 19:27 Labs: Lab Results 04/24/20 04/24/20 04/24/20 Range/Units 19:27 19:27 19:27 WBC 5.0 (4.5-11.0) X10^3/uL RBC 4.47 L (4.5-5.9) X10^6/uL Hgb 14.8 (13.5-17.5) g/dL Hct 43.6 (41-53) % MCV 97.4 (80-100) fL MCH 33.1 (26-34) PG MCHC 33.9 (30-36) % RDW 12.8 (11.6-14.8) % Plt Count 130 L (150-400) X10^3/uL Neut % (Auto) 52.8 (50-75) % Lymph % (Auto) 37.0 (25-40) % Haralson % (Auto) 6.5 (3-14) % Eos % (Auto) 2.6 (2-4) % Baso % (Auto) 1.1 (0-2) % Neut # (Auto) 2600 (7392-6823) /uL Lymph # (Auto) 1800 (7639-1942) /uL Haralson # (Auto) 300 (0-900) /uL Eos # (Auto) 100 (0-450) /uL Baso # (Auto) 100 (0-100) /uL PT 12.2 (10.1-12.7) SECONDS INR 1.1 (0.9-1.3) APTT 34 D (26.4-36.2) SECONDS Sodium 144 (137-145) mmol/L Potassium 4.1 (3.4-5.1) mmol/L Chloride 106 (98-107) mmol/L Carbon Dioxide 26 (22-32) mmol/L BUN 11 (9-20) mg/dL Creatinine 0.82 (0.66-1.25) mg/dL Estimated GFR > 60.0 (>60) mL/min BUN/Creatinine Ratio 13.4 (6-22) Glucose 96 (80-110) mg/dL Calcium 8.7 (8.4-10.2) mg/dL Total Bilirubin 0.8 (0.2-1.3) mg/dL AST 55 (17-59) IU/L ALT 28 (<50) IU/L Alkaline Phosphatase 57 (38-126) U/L Total Creatine Kinase 172 H (55-170) U/L CK-MB (CK-2) 3.67 H (<2.37) ng/mL CK-MB (CK-2) Rel Index 2.1 (1.5-5.0) % Troponin I 0.015 (0.01-0.034) ng/mL Total Protein 7.5 (6.3-8.2) g/dL Albumin 4.5 (3.5-5.0) g/dL Globulin 3.0 (1.7-4.1) g/dL Albumin/Globulin Ratio 1.5 (1.0-2.8) Lipase 47 (23-300) U/L U Opiates 300ng/mL cut (Negative) Ur Oxycodone Screen (Negative) Urine Methadone Screen (Negative) Ur Barbiturates Screen (Negative) U Tricyclic Antidepress (Negative) Ur Phencyclidine Scrn (Negative) Ur Amphetamines Screen (Negative) U Methamphetamines Scrn (Negative) Ur MDMA Scrn (Ecstasy) (Negative) U Benzodiazepines Scrn (Negative) Urine Cocaine Screen (Negative) U Marijuana (THC) Screen (Negative) Ethyl Alcohol 243 H ( - 10) mg/dL 04/24/20 Range/Units 19:30 WBC (4.5-11.0) X10^3/uL RBC (4.5-5.9) X10^6/uL Hgb (13.5-17.5) g/dL Hct (41-53) % MCV (80-100) fL MCH (26-34) PG MCHC (30-36) % RDW (11.6-14.8) % Plt Count (150-400) X10^3/uL Neut % (Auto) (50-75) % Lymph % (Auto) (25-40) % Haralson % (Auto) (3-14) % Eos % (Auto) (2-4) % Baso % (Auto) (0-2) % Neut # (Auto) (9839-4064) /uL Lymph # (Auto) (3872-2900) /uL Haralson # (Auto) (0-900) /uL Eos # (Auto) (0-450) /uL Baso # (Auto) (0-100) /uL PT (10.1-12.7) SECONDS INR (0.9-1.3) APTT (26.4-36.2) SECONDS Sodium (137-145) mmol/L Potassium (3.4-5.1) mmol/L Chloride (98-107) mmol/L Carbon Dioxide (22-32) mmol/L BUN (9-20) mg/dL Creatinine (0.66-1.25) mg/dL Estimated GFR (>60) mL/min BUN/Creatinine Ratio (6-22) Glucose (80-110) mg/dL Calcium (8.4-10.2) mg/dL Total Bilirubin (0.2-1.3) mg/dL AST (17-59) IU/L ALT (<50) IU/L Alkaline Phosphatase (38-126) U/L Total Creatine Kinase (55-170) U/L CK-MB (CK-2) (<2.37) ng/mL CK-MB (CK-2) Rel Index (1.5-5.0) % Troponin I (0.01-0.034) ng/mL Total Protein (6.3-8.2) g/dL Albumin (3.5-5.0) g/dL Globulin (1.7-4.1) g/dL Albumin/Globulin Ratio (1.0-2.8) Lipase (23-300) U/L U Opiates 300ng/mL cut Negative (Negative) Ur Oxycodone Screen Negative (Negative) Urine Methadone Screen Negative (Negative) Ur Barbiturates Screen Negative (Negative) U Tricyclic Antidepress Negative (Negative) Ur Phencyclidine Scrn Negative (Negative) Ur Amphetamines Screen Negative (Negative) U Methamphetamines Scrn Negative (Negative) Ur MDMA Scrn (Ecstasy) Negative (Negative) U Benzodiazepines Scrn Negative (Negative) Urine Cocaine Screen Negative (Negative) U Marijuana (THC) Screen Positive H (Negative) Ethyl Alcohol ( - 10) mg/dL Imaging Data CT scan - head: Radiologist's Impression: [address] [address] [address] Scan Report Signed Patient: Bruce Larsen#: [id number] : 8Acct:[id number] Age/Sex: 74 / MDate of Service: 04/24/20 Loc: ED Accession Number: [id number] Procedure: CT head/brain wo con Ordering Provider: Mat Schumacher MD PROCEDURE: CT HEAD/BRAIN WO CON INDICATIONS: TRAUMA TECHNIQUE: Noncontrast 4.5 mm thick angled axial sections acquired from the foramen magnum to the vertex, with coronal and sagittal reformats. For radiation dose reduction, the following was used: automated exposure control, adjustment of mA and/or kV according to patient size. COMPARISON: None. FINDINGS: Image quality: Excellent. CSF spaces: Basal cisterns are patent. No extra-axial fluid collections. Ventricles are normal in size and shape. Brain: No midline shift. No acute intracranial hemorrhage or mass effect. Watts-white matter interface is normal. Skull and face: Calvarium and visualized facial bones are intact, without suspicious lesions. Sinuses: Visualized sinuses and mastoids are clear. IMPRESSION: No acute intracranial hemorrhage or mass effect. No skull fracture. Dictated by: Riaz Hyatt M.D. on 04/24/2020 at 19:22 Approved by: Riaz Hyatt M.D. on 04/24/2020 at 19:24 CT - cervical spine: Radiologist's Impression: [place] [address] CT Scan Report Signed Patient: Nisha LarsenMR#: [id number] : 8Acct:[id number] Age/Sex: 74 / MDate of Service: 04/24/20 Loc: ED Accession Number: [id number] Procedure: CT cervical spine wo con Ordering Provider: Mat Schumacher MD PROCEDURE: CT CERVICAL SPINE WO CON INDICATIONS: TRAUMA TECHNIQUE: Noncontrast 3 mm thick sections acquired from the skull base to the T4 level. Sagittal and coronal reformats were then constructed. For radiation dose reduction, the following was used: automated exposure control, adjustment of mA and/or kV according to patient size. COMPARISON: None. FINDINGS: Image quality: Excellent. Bones: Postsurgical changes are seen from anterior fusion at the C5-6 level with intact metallic hardware. Multilevel degenerative changes are seen in the cervical spine with degenerative disc disease and facet hypertrophy. No acute fracture is identified. Soft tissues: Prevertebral soft tissues are normal in thickness. No paravertebral hematomas. No apical pneumothoraces. IMPRESSION: 1. No acute cervical spine fracture. 2. Postsurgical changes from anterior fusion of C5-6 with intact hardware. 3. Multilevel degenerative changes in the cervical spine Dictated by: Riaz Hyatt M.D. on 04/24/2020 at 19:24 Approved by: Riaz Hyatt M.D. on 04/24/2020 at 19:28 CT scan - abdomen/pelvis: Radiologist's Impression: [address] [address] [address] Scan Report Addendum Patient: Nisha LarsenMR#: [id number] : 8Acct:[id number] Age/Sex: 74 / MDate of Service: 04/24/20 Loc: ED Accession Number: [id number] Procedure: CT chest abd pel w con Ordering Provider: Mat Schumacher MD ADDENDUM CORRECTION Corrected on: 04/24/2020; PROCEDURE: CT CHEST ABD PEL W CON INDICATIONS: TRAUMA TECHNIQUE: After the administration of intravenous contrast, 5 mm thick sections acquired from the lung apices to the symphysis. 2.5 mm thick coronal and sagittal reformats were acquired. Additional 7 mm thick coronal maximum intensity projection (MIP) reformats acquired through the lungs. Optional 10-minute delayed imaging may be performed from the kidneys to the bladder. For radiation dose reduction, the following was used: automated exposure control, adjustment of mA and/or kV according to patient size. COMPARISON: [facility], CT, CT ANGIO CHEST ABDOMEN PELVIS, 04/21/2019, 16:53. FINDINGS: Image quality: Excellent. CHEST: Lungs: No pulmonary contusions or lacerations. No acute airspace opacities. No pneumothorax or hemothorax. Central and peripheral airways appear patent and normal in caliber. Mediastinum: No mediastinal hematomas. Heart size is normal. No pericardial effusion. Thoracic aorta and pulmonary arteries demonstrate normal size and enhancement. Atherosclerotic calcifications are seen in the aorta and the coronary arteries. No mediastinal or hilar adenopathy. Esophagus is normal in caliber. A small hiatal hernia is present. Chest wall: No rib fractures. No subcutaneous emphysema. No axillary or supraclavicular adenopathy. Thyroid gland appears normal. ABDOMEN: Solid organs: Liver is normal in size and enhancement, without lacerations. Gallbladder is surgically absent. Biliary system is non-dilated. Pancreas enhances normally, without transection. Spleen is normal in size and enhancement, without lacerations. No adrenal hematomas. Both kidneys enhance normally, without hydronephrosis or lacerations. The left kidney is mildly atrophic with cortical scarring. A nonobstructing 4 mm calculus is seen in the superior pole of the left kidney. Peritoneum and bowel: No free fluid or air. Unenhanced bowel loops demonstrate normal wall thickness and caliber. Normal appendix. Nodes and vessels: No retroperitoneal or mesenteric adenopathy. There is mild ectasia of the infrarenal abdominal aorta measuring up to 2.6 x 2.8 cm. Atherosclerotic calcifications are seen in the aorta. Miscellaneous: No ventral hernias. PELVIS: Genitourinary: Bladder wall thickness is normal. Miscellaneous: No inguinal hernias or adenopathy. Bones: Postsurgical changes are seen from left hip arthroplasty. No acute fracture is seen. Multilevel degenerative changes are seen in the spine. Anterior fusion hardware is seen in the lower cervical spine. IMPRESSION: No acute fracture or solid organ injury. Dictated by: Riaz Hyatt M.D. on 04/24/2020 at 19:29 Approved by: Riaz Hyatt M.D. on 04/24/2020 at 19:33 Dictated by: Riaz Hyatt M.D. on 04/24/2020 at 20:46 Approved by: Riaz Hyatt M.D. on 04/24/2020 at 20:48 Addendum Dictated By:Riaz Hyatt MD Addendum Signed By: Addendum Cosigned By: DD/ TD/TT: 04/24/20 PROCEDURE: CT CHEST ABD PEL W CON INDICATIONS: TRAUMA TECHNIQUE: After the administration of intravenous contrast, 5 mm thick sections acquired from the lung apices to the symphysis. 2.5 mm thick coronal and sagittal reformats were acquired. Additional 7 mm thick coronal maximum intensity projection (MIP) reformats acquired through the lungs. Optional 10-minute delayed imaging may be performed from the kidneys to the bladder. For radiation dose reduction, the following was used: automated exposure control, adjustment of mA and/or kV according to patient size. COMPARISON: [facility], CT, CT ANGIO CHEST ABDOMEN PELVIS, 04/21/2019, 16:53. FINDINGS: Image quality: Excellent. CHEST: Lungs: No pulmonary contusions or lacerations. No acute airspace opacities. No pneumothorax or hemothorax. Central and peripheral airways appear patent and normal in caliber. Mediastinum: No mediastinal hematomas. Heart size is normal. No pericardial effusion. Thoracic aorta and pulmonary arteries demonstrate normal size and enhancement. Atherosclerotic calcifications are seen in the aorta and the coronary arteries. No mediastinal or hilar adenopathy. Esophagus is normal in caliber. A small hiatal hernia is present. Chest wall: No rib fractures. No subcutaneous emphysema. No axillary or supraclavicular adenopathy. Thyroid gland appears normal. ABDOMEN: Solid organs: Liver is normal in size and enhancement, without lacerations. Gallbladder is surgically absent.. Biliary system is non-dilated. Pancreas enhances normally, without transection. Spleen is normal in size and enhancement, without lacerations. No adrenal hematomas. Both kidneys enhance normally, without hydronephrosis or lacerations. Peritoneum and bowel: No free fluid or air. Unenhanced bowel loops demonstrate normal wall thickness and caliber. Nodes and vessels: No retroperitoneal or mesenteric adenopathy. Aorta and inferior vena cava are normal in size and enhancement. Miscellaneous: No ventral hernias. PELVIS: Genitourinary: Bladder wall thickness is normal. Miscellaneous: No inguinal hernias or adenopathy. Bones: Pelvic ring and hip joints appear intact. No vertebral compression fractures. IMPRESSION: Dictated by: Riaz Hyatt M.D. on 04/24/2020 at 19:29 Approved by: Riaz Hyatt M.D. on 04/24/2020 at 19:33 xray lt femur: Radiologist's Impression: [place] [address] XRay Report Signed Patient: Nisha Larsen#: [id number] : 8Acct:[id number] Age/Sex: 74 / MDate of Service: 04/24/20 Loc: ED Accession Number: [id number] Procedure: XR femur LT min 2V Ordering Provider: Mat Schumacher MD PROCEDURE: XR FEMUR LT MIN 2V INDICATIONS: Fall/injury TECHNIQUE: 4 views of the femur were acquired. COMPARISON: None. FINDINGS: Bones: Postsurgical changes are seen from left hip arthroplasty. Metallic components are in expected position without signs of loosening or perihardware fracture. The remainder of the femur is intact. No suspicious bony lesions. Soft tissues: No suspicious soft tissue calcifications or masses. A Lopez catheter is seen in the bladder. IMPRESSION: Left hip arthroplasty is seen. No acute fracture or dislocation. Dictated by: Riaz Hyatt M.D. on 04/24/2020 at 20:06 Approved by: Riaz Hyatt M.D. on 04/24/2020 at 20:08 xr pelvis: Radiologist's Impression: [address] [address] XRay Report Signed Patient: Bruce Larsen#: [id number] : 8Acct:[id number] Age/Sex: 74 / MDate of Service: 04/24/20 Loc: ED Accession Number: [id number] Procedure: XR pelvis 1-2V Ordering Provider: Mat Schumacher MD PROCEDURE: XR PELVIS 1-2V INDICATIONS: Fall/injury TECHNIQUE: Single AP view of the pelvis acquired. COMPARISON: [facility], PELVIS 1 OR 2 VIEWS, 01/28/2013, 16:55. FINDINGS: Bones: Left hip arthroplasty is noted. No acute fractures or dislocations. No suspicious bony lesions. Moderate degenerative changes are seen in the right hip with joint space narrowing and marginal osteophyte formation. Degenerative changes are seen in the lower lumbar spine. Soft tissues: Visualized bowel gas pattern is normal. No suspicious soft tissue calcifications. Contrast material is seen within the bladder related to CT performed earlier the same day. A Lopez catheter is noted in the bladder. IMPRESSION: No acute osseous abnormality. Dictated by: Riaz Hyatt M.D. on 04/24/2020 at 20:05 Approved by: Riaz Hyatt M.D. on 04/24/2020 at 20:06 ECG Data Attestation: I personally reviewed and interpreted this ECG as follows: Interpretation: Sinus rhythm, rate 87, no ST elevation or depression Discharge Plan Departure Patient Disposition: Admitted as Observation Clinical Impression: Concussion Qualifiers: Encounter type: initial encounter Loss of consciousness presence/duration: with LOC of 30 min or less Qualified Code(s): S06.0X1A - Concussion with loss of consciousness of 30 minutes or less, initial encounter Contusion of hip, left Qualifiers: Encounter type: initial encounter Qualified Code(s): S70.02XA - Contusion of left hip, initial encounter Alcohol intoxication Qualifiers: Complication of substance-induced condition: with unspecified complication Qualified Code(s): F10.929 - Alcohol use, unspecified with intoxication, unspecified Discharge Date/Time: 04/24/20 23:15 Referrals: Gigi Copeland MD [Primary Care Provider] - Admit Date/Time: 04/24/20 21:54 Admit Provider: Chaitanya Barrientos
[2020-04-24 19:34] LABS: Add Manual Diff / Slide Review NO; Basophils Absolute Auto 100 /uL (0-100); Basophils Percent Auto 1.1 % (0-2); Eosinophils Absolute Auto 100 /uL (0-450); Eosinophils Percent Auto 2.6 % (2-4); Hematocrit 43.6 % (41-53); Hemoglobin 14.8 g/dL (13.5-17.5); Lymphocytes Absolute Auto 1800 /uL (1100-4500); Mean Corpuscular HGB Conc 33.9 % (30-36); Mean Corpuscular Hemoglobin 33.1 PG (26-34); Mean Corpuscular Volume 97.4 fL (80-100); Monocytes Absolute Auto 300 /uL (0-900); Monocytes Percent Auto 6.5 % (3-14); Neutrophils Absolute Auto 2600 /uL (1500-7000); Neutrophils Percent Auto 52.8 % (50-75); Platelet Count 130 X10^3/uL (150-400); Red Blood Cell Count 4.47 X10^6/uL (4.5-5.9); Red Cell Distribution Width 12.8 % (11.6-14.8)
[2020-04-24 19:43] LABS: INR 1.1 (0.9-1.3); Prothrombin Time 12.2 SECONDS (10.1-12.7)
[2020-04-24 19:44] LABS: UR Morphine/Opiate cutoff 300 Negative (Negative); Ur Creatinine Normal (Normal); Ur Specific Gravity Normal (Normal); Urine Amphetamines Negative (Negative); Urine Barbiturates Negative (Negative); Urine Benzodiazepines Negative (Negative); Urine Cocaine Negative (Negative); Urine MDMA Negative (Negative); Urine Methadone Negative (Negative); Urine Methamphetamines Negative (Negative); Urine Oxycodone Negative (Negative); Urine Phencyclidine Negative (Negative); Urine Tetrahydrocannabinol Positive (Negative); Urine Tricyclic Antidepressant Negative (Negative); Urine pH Normal (Normal)
[2020-04-24 19:45] LABS: PTT Partial Thromboplastin Tim 34 SECONDS (26.4-36.2)
[2020-04-24 19:48] LABS: Alanine Aminotransferase 28 IU/L (<50); Albumin 4.5 g/dL (3.5-5.0); Albumin Globulin Ratio 1.5 (1.0-2.8); Alkaline Phosphatase 57 U/L (38-126); Aspartate Aminotransferase 55 IU/L (17-59); BUN Creatinine Ratio 13.4 (6-22); Bilirubin Total 0.8 mg/dL (0.2-1.3); Blood Urea Nitrogen 11 mg/dL (9-20); Calcium 8.7 mg/dL (8.4-10.2); Carbon Dioxide 26 mmol/L (22-32); Chloride 106 mmol/L (98-107); Creatine Kinase 172 U/L (55-170); Estimated Glomerular Filt Rate > 60.0 mL/min (>60); Ethanol (ETOH) 243 mg/dL; Glucose 96 mg/dL (80-110); HEMOLYSIS < 15 (0-50); Lipase 47 U/L (23-300); Potassium 4.1 mmol/L (3.4-5.1); Sodium 144 mmol/L (137-145); Total Protein 7.5 g/dL (6.3-8.2)
[2020-04-24 19:59] LABS: Troponin I 0.015 ng/mL (0.01-0.034)
[2020-04-24 20:03] LABS: CKMB % Relative Index 2.1 % (1.5-5.0); Creatine Kinase MB 3.67 ng/mL (<2.37)
[2020-04-24] MEDS: MORPHINE 2 MG/ML INJ IV (22:02)
[2020-04-24 22:59] LABS: COVID19 -Nasal RAPID Negative (Negative)
--- NOTE | 2020-04-25 00:32 | PC.NURSE ---
Addendum entered by Salina Sarah R.N. 04/25/20 02:52: pt has been sleeping after taking oxycodone. safety checks. call lig in reach. Original Note: pt reports he takes oxycodone at home. VTO from Dr. Buchanan oxycodone 5mg PRN q4hr and zofran PRN. pt does not need to be in IVF, no tele, no ciwa per provider order. Provider is also aware of his upper abdominal pain/mid chest area. ER nurse report he had this pain while ED.
[2020-04-25] MEDS: OXYCODONE IR 5 MG TABLET PO ×2 (00:38→05:11)
[2020-04-25 00:53] VITALS: BP 135/86; PULSE 97; RESP 18; TEMP 37.1; O2SAT 98
[2020-04-25 05:00] VITALS: BP 131/84; PULSE 92; RESP 18; TEMP 36.6; O2SAT 96
[2020-04-25 08:00] VITALS: BP 138/82; PULSE 82; RESP 18; TEMP 36.8; O2SAT 97
--- NOTE | 2020-04-25 08:51 | P.HP_ITS ---
History of Present Illness History of Present Illness Date Patient Seen: 04/25/20 Time Patient Seen: 08:32 Chief complaint: Modified Trauma Narrative: 74-year-old male admitted via the emergency department after falling down the stairs at home. Apparently he was quite upset with the of the family PET and increased his usually heavy drinking even further. He was intoxicated and stairs at his home (which are carpeted). Lost his balance fell backwards striking his head on the ground floor. Head maybe 2 minutes of loss of consciousness or so per spouse who I believe witness the events. Woke up somewhat confused disoriented. Was brought to the ER in a cervical neck collar and fully evaluated. No evidence of any significant injury was identified. He seemed to clear his mentation. Was admitted for continued observation management Currently is I see him this morning he is complaining of right-sided chest discomfort associated with his ribcage he says. Difficult to breathe deeply because of pain also to his whole upper trunk and or even his right arm. Is alert oriented x3. No other complaints other than he has urinary catheter he would like to get rid of Patient History Medical History AAA (abdominal aortic aneurysm) (Chronic ~2018) Acid reflux (Chronic) Arthritis (Chronic) Chicken pox (Resolved) Chronic back pain (Chronic) GERD (gastroesophageal reflux disease) (Chronic ~2018) Glaucoma (Chronic 02/21/11) Gout (Chronic 02/21/11) Heartburn (Chronic) Hyperlipidemia (Chronic 02/21/11) Insomnia (Chronic) Measles (Resolved) Sciatica (Chronic) Symptomatic cholelithiasis (Resolved) Thoracic aortic aneurysm (Chronic) Surgical History Anesthesia (Resolved) Hx of fusion of cervical spine (Inactive ~08/2005) S/P laparoscopic cholecystectomy (Inactive ~11/2018) Status post left hip replacement (Inactive ~12/2012) Status post lumbar surgery (Inactive) Family & Social History Family History Father Bladder cancer Brother Throat cancer Grandfather Stroke Social History: household members spouse Prior Living Arrangements House Safety & Behavioral: Feels Safe in Current Yes Environment Been Physically Hurt or Yes Threatened By a Person Suicidal Ideation Description None Tobacco & Substance use: Tobacco type cannabis/marijuana Smoking Status Current some day smoker alcohol intake current alcohol intake frequency 3 or more drinks per day Substance Use Type marijuana Meds Home Medications and Allergies Home Medications Medication Instructions Recorded Confirmed Type latanoprost [Xalatan] 1 drp EYE-LEFT BEDTIME #0 02/21/11 04/24/20 History Alphagan P 1 drp OPHTH DAILY #10 ml 01/21/13 04/24/20 History aspirin 81 mg PO QDAY #0 01/21/13 04/24/20 History cholecalciferol (vitamin D3) 2,000 - 4,000 unit PO DAILY #0 01/21/13 04/24/20 History [Vitamin D3] coenzyme Q10 60 mg PO DAILY #0 01/21/13 04/24/20 History ferrous gluconate 236 mg PO DAILY #0 01/21/13 04/24/20 History milk thistle 150 mg capsule 150 mg PO DAILY #0 cap 01/31/19 04/24/20 History baclofen 10 mg tablet 10 mg PO DAILY #90 tab 03/18/19 04/24/20 Rx ibuprofen 800 mg tablet 400 mg PO TID PRN tab 09/19/19 04/24/20 History rosuvastatin 10 mg tablet 10 mg PO DAILY #90 tab 09/19/19 04/24/20 Rx allopurinol 300 mg tablet 150 mg PO QDAY #90 tab 04/03/20 04/24/20 Rx quetiapine 50 mg tablet 50 mg PO BEDTIME #90 tab 04/04/20 04/24/20 Rx trazodone 50 mg tablet 50 mg PO BEDTIME #30 tab 04/04/20 04/24/20 Rx oxycodone 5 mg PO Q4H PRN #20 tab 04/25/20 Rx Allergies Allergy/AdvReac Type Severity Reaction Status Date / Time hydrocodone AdvReac Intermediate difficulty Verified 04/25/20 08:46 breathing? methocarbamol [From Robaxin] AdvReac Mild passed Verified 09/19/19 10:16 out, felt horrible Review of Systems Constitutional Constitutional: Denies excessive sweating, Denies fever(s), Denies headache(s), Denies weakness, Denies weight gain and Denies weight loss Eyes Eyes: Denies change in vision, Denies itchy eyes, Denies loss of vision and Denies other visual disturbances ENT Ears, Nose, Mouth, and Throat: No change in voice, No dysphagia, No dizziness, No otalgia, No headache(s), No hoarseness, No lip swelling, No neck pain, No sore throat, No throat swelling and No tongue swelling Cardiovascular Cardiovascular: Reports chest pain (Chest wall pain), Denies syncope, Denies rapid heart rate, Denies irregular heart rhythm, Denies palpitations, Reports dyspnea (Due to pain with breathing) and Denies slow heart rate Respiratory Respiratory: Denies chest congestion, Denies cough, Denies hemoptysis, Reports dyspnea (Due to pain with breathing), Denies stridor and Denies wheezing Gastrointestinal Gastrointestinal: Denies abdominal pain, Denies bloating, Denies change in bowel habits, Denies change in stool character, Denies dysphagia, Denies nausea, Denies vomiting and Denies hematemesis Genitourinary Genitourinary: Denies hematuria, Denies difficulty urinating and Denies urinary frequency Musculoskeletal Musculoskeletal: Denies abnormal gait, Denies myalgias, Denies arthralgias, Denies limited range of motion and Denies neck pain Integumentary/Breasts Skin/Breast: Denies bleeding lesions, Denies change in pigmentation, Denies changing lesions, Denies new lesions, Denies rash, Denies skin swelling, Denies sores and Denies jaundice Neurologic Neurologic: Denies abnormal speech, Denies abnormal gait, Denies behavioral changes, Denies confusion, Denies dizziness, Denies syncope, Denies headache(s), Denies loss of vision, Denies memory loss, Denies seizure-like activity, Denies paresthesias and Denies weakness Psychiatric Psychiatric: Denies behavioral changes, Denies change in appetite, Denies confusion, Denies difficulty concentrating, Denies auditory hallucinations, Denies memory loss, Denies mood swings and Denies suicidal ideation Endocrine Endocrine: Denies excessive sweating, Denies flushing, Denies polyuria and Denies palpitations Hematologic/Lymphatic Hematologic/Lymphatic: Denies easy bleeding, Denies easy bruising and Denies lymphadenopathy Allergic/Immunologic Allergic/Immunologic: Denies urticaria, Denies itchy eyes, Denies lip swelling, Denies throat swelling, Denies tongue swelling and Denies wheezing Exam Vital Signs (past 8 hours): 04/25/20 00:53 04/25/20 05:00 04/25/20 08:00 Temperature 98.8 F 97.9 F 98.3 F Pulse Rate 97 H 92 H 82 Respiratory Rate 18 18 18 Blood Pressure 135/86 131/84 138/82 Pulse Oximetry 98 96 97 Oxygen Delivery Method Room Air Oxygen Flow Rate 0 Narrative Exam Narrative: HEENT-unremarkable, normocephalic atraumatic Neck-no lymphadenopathy no bruits Lungs-clear anteriorly and posteriorly no wheezes no crackles good breath sounds Heart-regular rate and rhythm, no murmur, rub, or gallop. normal S1-S2 Abdomen-positive bowel tones, soft, nontender, nondistended, no hepatosplenomegaly, no masses palpable Neuro-normal to screening exam, gait not tested Extremities-no cyanosis clubbing or edema Objective Labs Result Diagrams: 04/24/20 19:27 04/24/20 19:27 Labs: Laboratory Results - last 24 hr 04/24/20 04/24/20 04/24/20 19:27 19:27 19:27 WBC 5.0 RBC 4.47 L Hgb 14.8 Hct 43.6 MCV 97.4 MCH 33.1 MCHC 33.9 RDW 12.8 Plt Count 130 L Neut % (Auto) 52.8 Lymph % (Auto) 37.0 [place] % (Auto) 6.5 Eos % (Auto) 2.6 Baso % (Auto) 1.1 Neut # (Auto) 2600 Lymph # (Auto) 1800 [place] # (Auto) 300 Eos # (Auto) 100 Baso # (Auto) 100 PT 12.2 INR 1.1 APTT 34 D Sodium 144 Potassium 4.1 Chloride 106 Carbon Dioxide 26 BUN 11 Creatinine 0.82 Estimated GFR > 60.0 BUN/Creatinine Ratio 13.4 Glucose 96 Calcium 8.7 Total Bilirubin 0.8 AST 55 ALT 28 Alkaline Phosphatase 57 Total Creatine Kinase 172 H CK-MB (CK-2) 3.67 H CK-MB (CK-2) Rel Index 2.1 Troponin I 0.015 Total Protein 7.5 Albumin 4.5 Globulin 3.0 Albumin/Globulin Ratio 1.5 Lipase 47 U Opiates 300ng/mL cut Ur Oxycodone Screen Urine Methadone Screen Ur Barbiturates Screen U Tricyclic Antidepress Ur Phencyclidine Scrn Ur Amphetamines Screen U Methamphetamines Scrn Ur MDMA Scrn (Ecstasy) U Benzodiazepines Scrn Urine Cocaine Screen U Marijuana (THC) Screen Ethyl Alcohol 243 H COVID-19 PCR 04/24/20 04/24/20 19:30 22:00 WBC RBC Hgb Hct MCV MCH MCHC RDW Plt Count Neut % (Auto) Lymph % (Auto) [place] % (Auto) Eos % (Auto) Baso % (Auto) Neut # (Auto) Lymph # (Auto) [place] # (Auto) Eos # (Auto) Baso # (Auto) PT INR APTT Sodium Potassium Chloride Carbon Dioxide BUN Creatinine Estimated GFR BUN/Creatinine Ratio Glucose Calcium Total Bilirubin AST ALT Alkaline Phosphatase Total Creatine Kinase CK-MB (CK-2) CK-MB (CK-2) Rel Index Troponin I Total Protein Albumin Globulin Albumin/Globulin Ratio Lipase U Opiates 300ng/mL cut Negative Ur Oxycodone Screen Negative Urine Methadone Screen Negative Ur Barbiturates Screen Negative U Tricyclic Antidepress Negative Ur Phencyclidine Scrn Negative Ur Amphetamines Screen Negative U Methamphetamines Scrn Negative Ur MDMA Scrn (Ecstasy) Negative U Benzodiazepines Scrn Negative Urine Cocaine Screen Negative U Marijuana (THC) Screen Positive H Ethyl Alcohol COVID-19 PCR Negative Assessment & Plan Assessment & Plan narrative: 1. Patient with acute alcohol intoxication and as a result lost balance and fell on the stairs. No evidence of obvious significant injury. Clearly had a concussion between the confusional state and loss of consciousness. Does appear to be back to baseline at this point. Therefore okay to discharge home 2. Alcohol abuse-patient has now been admitted twice in the last 12 months or so with alcohol-related complications. Clearly he has a problem with alcohol and we discussed that at some length. He needs to quit drinking alcohol altogether. Does have chronic pain related to a prior left total hip replacement and chronic back issues. He uses alcohol as well as marijuana an effort to help control pain. There has been no benefit from orthopedic interventions but has not had any recent intervention for that. Will continue this discussing his not patient patient's spouse was involved and is in agreement that he should quit drinking altogether as well. 3. Abdominal aortic aneurysm-patient was active scheduled for repeat CT scan of the abdomen today to evaluate his known abdominal aortic aneurysm. That was done as part of his trauma workup and it is unchanged. Plan to repeat review of his AAA in 1 year's time Overall patient appears to have done no significant trauma. Does have some chest wall discomfort likely related to his fall maybe even some minor rib injury not seen on CT imaging. However appears to be stable for discharge home assuming he is stable on his feet which is not yet been tested. Will remove his urinary catheter test him on his feet and assuming all is well which would be my expectation he will be discharged later this morning. I will see him as an outpatient in 7-10 days time, discussion about alcohol use as well as chronic pain management with consideration referral to [facility] as well
[2020-04-25] MEDS: FERROUS GLUCONATE 324 MG TABLET PO (09:53)
[2020-04-25] MEDS: allopurinoL 300 MG TABLET 150 MG PO (09:53)
[2020-04-25] MEDS: CHOLECALCIFEROL (VITAMIN D3) 1,000 UNIT TABLET 2000 UNIT PO (09:53)
[2020-04-25] MEDS: BACLOFEN 10 MG TABLET PO (09:53)
[2020-04-25] MEDS: ASPIRIN EC 81 MG TABLET PO (09:53)
[2020-04-25] MEDS: IBUPROFEN 400 MG TABLET PO (09:54)
[2020-04-25] MEDS: ROSUVASTATIN 10 MG TABLET PO (09:54)
[2020-04-25] MEDS: ACETAMINOPHEN 325 MG TABLET 650 MG PO (09:54)
[2020-04-25] MEDS: CALCIUM CARBONATE 500 MG TAB PO (11:27)
--- NOTE | 2020-04-25 12:22 | CM.DANOTE ---
DCP assessment: EMR reviewed: patient is a 74 yr old male who was admitted under observation for a concussion due to a fall and 2 min episode of syncope. patients current PCP is Dr Copeland. CM/Rn met with patient at the bedside and explained role. Patient was alert and oriented x3 during Cm visit. patients was also present at the bedside to talk about D/C planning. CM/Rn spoke with patient about his alcohol level yesterday in the ED and patient stated that he had drank alot yesterday since his dog yesterday and patient states he hasn't taken it well. Cm/Rn asked patient if drinking is a usual daily occurrence and patient stated he normally has one or two drinks but doesn't drink like he did yesterday. CM/RN asked if ryann would like some resources for counseling or AA meeting resources? Patient stated that he wasn't interested in any chemical dependency resources or counseling services. patient states he is independent with all ADLs at [place] and can drive but patients tends to do most of the driving. I: Medicare and Ranker Plan: D/C home with Celina today. No D/C needs noted at this time. Cm will follow to assist with any new D/C planning needs that may arise prior to D/C. Mallory Cortes RN Discharge Planning/Care Management Discharge Assessment Start: 04/25/20 12:19 Freq: Status: Active Protocol: Document 04/25/20 12:19 HS (Rec: 04/25/20 12:22 HS [id number]) Discharge Planning Assessment Assigned [employer] Operator Mallory Cortes RN DPOA/Assigned Designee Name Celina Mays () Contact Information [phone] Advance Directives? Yes History Provided By Significant Other Has Patient been admitted in last 30 No days? Prior Living Arrangements House Household Members spouse Type of transporation used prior to Relies on Others admit Comment does all the driving Facility Name Admitted From: [facility] [address] Independent with ADL's Yes Is patient alert and oriented? Yes Caregiver for Another No DME Already Rented / Owned FWW / Walker Barriers to Discharge No Discharge Plan Home Transportation Arrangement will drive patient home at D/C Referrals Initiated None needed Whiteboard Updated in Patient Room with Yes name and ext. # of [employer] Operator Review Status In Process Next Review Type Continued Stay Review
--- NOTE | 2020-04-25 12:39 | PC.NURSE ---
John d/c at 1100; pt voided in toilet; IS provided with instructions due to right ribcage pain and Right LL crackles; IS 3000 X 5 breaths; d/c instructions include pneumonia prevention to IS/cough/deep breath, pain control; alcohol contraindication with Tylenol; pt says he is motivated to abstain from alcohol and understands liver toxicity; @ 1200 pt escorted via wheelchair to private vehicle with personal belongings in hand
== END 2020-04-25 12:48 | disposition home or self-care (01) ==
LOC: ED 21:52 → AC 21:54
PROVIDERS: Admitting Provider Family Medicine; Emergency Provider Emergency Medicine; PCP Internal Medicine; Visit Provider Internal Medicine
DX: S79.912A Unspecified injury of left hip, initial encounter (principal); S06.0X1A Concussion with loss of consciousness of 30 minutes or less, initial encounter; W10.8XXA Fall (on) (from) other stairs and steps, initial encounter; Y92.009 Unspecified place in unspecified non-institutional (private) residence as the place of occurrence of the external cause; I71.4 Abdominal aortic aneurysm, without rupture; F10.229 Alcohol dependence with intoxication, unspecified; F12.90 Cannabis use, unspecified, uncomplicated; Y90.8 Blood alcohol level of 240 mg/100 ml or more; G89.29 Other chronic pain; M54.9 Dorsalgia, unspecified; K21.9 Gastro-esophageal reflux disease without esophagitis; E78.5 Hyperlipidemia, unspecified; Z11.59 Encounter for screening for other viral diseases
CPT/HCPCS: 70450; 71260; 72125; 72170; 73552; 74177; 80053; 80305; 80320; 82550; 82553; 83690; 84484; 85025; 85610; 85730; 87635; 93005; 96374; 99219; 99285; G0378; J2270

== ENCOUNTER 2020-04-26 07:53 | Emergency (ER) | payer MEDICARE, BC, SELFPAY ==
[2020-04-24 23:34] VITALS: BMI 24.5
[2020-04-26 07:59] VITALS: BP 156/83; PULSE 78; RESP 16; TEMP 36.7; O2SAT 100; BMI 23.7
[2020-04-26 08:00] VITALS: BP 156/83; PULSE 73; O2SAT 97
--- NOTE | 2020-04-26 08:05 | ED_ITS ---
HPI - Nausea/Vomiting/Diarrhea General Chief complaint: Nausea/Vomiting/Diarrhea Stated complaint: vomiting all night Time Seen by Provider: 04/26/20 07:59 Source: patient and family Mode of arrival: Ambulatory Limitations: no limitations History of Present Illness HPI Narrative: Patient is a 74-year-old male with history of alcoholism on aspirin who presents with vomiting ongoing for last 24 hours. He was actually admitted here discharged yesterday after he fell down 5 stairs while intoxicated and places in observation. He does have some rib pain and found to have contusion of his ribs only. He says he vomited once prior before discharge and when he went home he continued to vomit he has been unable to keep anything down. The he does have some dizziness when he stands up, but he denies any headache. He has some abdominal discomfort. Denies any diarrhea no chest pain palpitations or fever. He also denies any light sensitivity. states that he has had some repetitive questioning and a little confusion since his fall. He states that his last drink was 2 days ago he is not going through withdrawals in the past. No history of seizures. MD complaint: vomiting Related Data Home Medications Medication Instructions Recorded Confirmed latanoprost [Xalatan] 1 drp EYE-LEFT BEDTIME #0 02/21/11 04/24/20 Alphagan P 1 drp OPHTH DAILY #10 ml 01/21/13 04/24/20 aspirin 81 mg PO QDAY #0 01/21/13 04/24/20 cholecalciferol (vitamin D3) 2,000 - 4,000 unit PO DAILY #0 01/21/13 04/24/20 [Vitamin D3] coenzyme Q10 60 mg PO DAILY #0 01/21/13 04/24/20 ferrous gluconate 236 mg PO DAILY #0 01/21/13 04/24/20 milk thistle 150 mg capsule 150 mg PO DAILY #0 cap 01/31/19 04/24/20 ibuprofen 800 mg tablet 400 mg PO TID PRN tab 09/19/19 04/24/20 Previous Rx's Medication Instructions Recorded baclofen 10 mg tablet 10 mg PO DAILY #90 tab 03/18/19 rosuvastatin 10 mg tablet 10 mg PO DAILY #90 tab 09/19/19 allopurinol 300 mg tablet 150 mg PO QDAY #90 tab 04/03/20 quetiapine 50 mg tablet 50 mg PO BEDTIME #90 tab 04/04/20 trazodone 50 mg tablet 50 mg PO BEDTIME #30 tab 04/04/20 oxycodone 5 mg PO Q4H PRN #20 tab 04/25/20 ondansetron 4 mg PO Q8H PRN #10 tab 04/26/20 Allergies Allergy/AdvReac Type Severity Reaction Status Date / Time hydrocodone AdvReac Intermediate difficulty Verified 04/26/20 07:59 breathing? methocarbamol [From Robaxin] AdvReac Mild passed Verified 04/26/20 07:59 out, felt horrible Review of Systems Review of Systems ROS Unobtainable: All systems reviewed & are unremarkable except as noted in HPI and below Constitutional Constitutional: Denies chills, Denies fever(s), Denies frequent falls, Denies headache(s), Denies lethargy and Denies weakness Eyes Eyes: Denies loss of vision ENT Ears, Nose, Mouth, and Throat: Denies vertigo, Denies dizziness and Denies headache(s) Cardiovascular Cardiovascular: Denies syncope, Denies dyspnea and Denies dyspnea on exertion Respiratory Respiratory: Denies cough, Denies dyspnea, Denies dyspnea on exertion and Denies wheezing Gastrointestinal Gastrointestinal: Denies abdominal pain, Denies change in bowel habits, Denies diarrhea, Reports nausea and Reports vomiting Musculoskeletal Musculoskeletal: Denies numbness Integumentary/Breasts Skin/Breast: Denies pruritus, Denies erythema, Denies rash and Denies wounds Neurologic Neurologic: Denies abnormal movements, Denies abnormal speech, Reports confusion (Repetitive questioning), Denies vertigo, Denies dizziness, Denies syncope, Denies frequent falls, Denies headache(s), Denies loss of vision, Reports memory loss, Denies numbness and Denies weakness Psychiatric Psychiatric: Reports confusion (Repetitive questioning) and Reports memory loss Allergic/Immunologic Allergic/Immunologic: Denies wheezing Patient History Medical History AAA (abdominal aortic aneurysm) (Chronic ~2018) Alcohol abuse (Chronic) Arthritis (Chronic) Chronic back pain (Chronic) Chronic left hip pain (Chronic) GERD (gastroesophageal reflux disease) (Chronic ~2018) Glaucoma (Chronic 02/21/11) Gout (Chronic 02/21/11) Hyperlipidemia (Chronic 02/21/11) Insomnia (Chronic) Sciatica (Chronic) Symptomatic cholelithiasis (Resolved) Thoracic aortic aneurysm (Chronic) Surgical History Anesthesia (Resolved) Hx of fusion of cervical spine (Inactive ~08/2005) S/P laparoscopic cholecystectomy (Inactive ~11/2018) Status post left hip replacement (Inactive ~12/2012) Status post lumbar surgery (Inactive) Family History Father Bladder cancer Brother Throat cancer Grandfather Stroke Social History marital status: household members: spouse occupational status: previously employed Smoking Status: Current some day smoker alcohol intake: current substance use type: marijuana Smoking Status: Current some day smoker alcohol intake frequency: 3 or more drinks per day Substance Use Type: marijuana Exam Initial Vital Signs Initial Vital Signs: Vital Signs Temperature 98.0 F 04/26/20 07:59 Pulse Rate 78 04/26/20 07:59 Respiratory Rate 16 04/26/20 07:59 Blood Pressure 156/83 H 04/26/20 07:59 Pulse Oximetry 100 04/26/20 07:59 GENERAL: Alert well-appearing older gentleman and in no acute distress. HEENT: Head atraumatic,EOMI, pupils reactive, face symmetric, dry mucous membranes CARDIOVASCULAR: Regular rate and rhythm without murmurs, rubs or gallops. RESPIRATORY: Breath sounds equal bilaterally, no wheezes rales or rhonchi. ABDOMEN: Soft, nontender. Normoactive bowel sounds all 4 quadrants. No guarding or rebound. EXTREMITIES: Normal range of motion, no clubbing or edema. Neurovascularly intact NEUROLOGICAL: Alert and oriented x4.Normal gait and speech. Cranial nerves II through XII grossly intact. Senior Web Designer strength equal bilaterally. Sensation intact to soft touch. SKIN: Warm, dry, no laceration, no petechiae, no rashes or lesions. Course Orders Ordered: ED Orders 04/26/20 08:02 Complete Blood Count AUTO DIFF Stat Comprehensive Metabolic Panel Stat Lipase Stat 04/26/20 09:43 CT head/brain wo con Stat Discontinued Medications Sodium Chloride (Normal Saline 0.9%) 1,000 mls @ 1,000 mls/hr IV CONT AMBIKA Last Infusion: 04/26/20 09:42 Dose: 0 mls/hr Documented by: Admin: 04/26/20 08:29 Dose: 1,000 mls/hr Documented by: CARLOTTA Ondansetron HCl (Zofran) 4 mg IV NOW ONE Stop: 04/26/20 08:19 Last Admin: 04/26/20 08:29 Dose: 4 mg Documented by: CARLOTTA Pantoprazole Sodium (Protonix) 40 mg IV NOW ONE Stop: 04/26/20 08:19 Last Admin: 04/26/20 08:29 Dose: 40 mg Documented by: CARLOTTA Consultations Consultation #1: Dr Randall, neurosurgery at [facility] has reviewed the CT from today as well as on April 24. He actually states that there was trace amount of bleeding 2 days ago despite a negative read by Radiology and today's scan it looks relatively stable. He recommends that patient stop taking his aspirin and avoid NSAIDs. Time: 11:50 Vital Signs Vital signs: Vital Signs - 8 hr 04/26/20 07:59 04/26/20 08:00 04/26/20 08:30 Temperature 98.0 F Pulse Rate 78 73 71 Respiratory Rate 16 Blood Pressure 156/83 H 156/83 H 153/78 H Pulse Oximetry 100 97 04/26/20 09:30 04/26/20 11:30 Temperature Pulse Rate 77 73 Respiratory Rate 15 Blood Pressure 156/86 H 147/81 H Pulse Oximetry 99 MDM - Nausea/Vomiting/Diarrhea Lab Data Attestation: I reviewed the patient's lab results. Result diagrams: 04/26/20 08:02 04/26/20 08:02 Labs: Lab Results 04/26/20 04/26/20 Range/Units 08:02 08:02 WBC 6.1 (4.5-11.0) X10^3/uL RBC 4.59 (4.5-5.9) X10^6/uL Hgb 15.4 (13.5-17.5) g/dL Hct 44.0 (41-53) % MCV 96.0 (80-100) fL MCH 33.6 (26-34) PG MCHC 35.0 (30-36) % RDW 12.6 (11.6-14.8) % Plt Count 144 L (150-400) X10^3/uL Neut % (Auto) 80.0 H D (50-75) % Lymph % (Auto) 12.2 L D (25-40) % Brooks % (Auto) 6.9 (3-14) % Eos % (Auto) 0.4 L (2-4) % Baso % (Auto) 0.5 (0-2) % Neut # (Auto) 4900 (0589-9556) /uL Lymph # (Auto) 700 L (1343-9755) /uL Brooks # (Auto) 400 (0-900) /uL Eos # (Auto) 0 (0-450) /uL Baso # (Auto) 0 (0-100) /uL Sodium 136 L (137-145) mmol/L Potassium 3.8 (3.4-5.1) mmol/L Chloride 98 (98-107) mmol/L Carbon Dioxide 27 (22-32) mmol/L BUN 15 (9-20) mg/dL Creatinine 0.73 (0.66-1.25) mg/dL Estimated GFR > 60.0 (>60) mL/min BUN/Creatinine Ratio 20.5 (6-22) Glucose 127 H (80-110) mg/dL Calcium 9.1 (8.4-10.2) mg/dL Total Bilirubin 1.7 H (0.2-1.3) mg/dL AST 58 (17-59) IU/L ALT 35 (<50) IU/L Alkaline Phosphatase 78 (38-126) U/L Total Protein 8.4 H (6.3-8.2) g/dL Albumin 4.8 (3.5-5.0) g/dL Globulin 3.6 (1.7-4.1) g/dL Albumin/Globulin Ratio 1.3 (1.0-2.8) Lipase 41 (23-300) U/L Imaging Data CT scan - head: Radiologist's Impression: PROCEDURE: CT HEAD/BRAIN WO CON INDICATIONS: vomiting recent head injury on asa TECHNIQUE: Noncontrast 4.5 mm thick angled axial sections acquired from the foramen magnum to the vertex, with coronal and sagittal reformats. For radiation dose reduction, the following was used: automated exposure control, adjustment of mA and/or kV according to patient size. COMPARISON: [facility], CT, CT HEAD/BRAIN WO CON, 04/24/2020, 18:51. FINDINGS: Image quality: Excellent. CSF spaces: Basal cisterns are patent. No extra-axial fluid collections. The ventricles are symmetric in size and shape. Brain: No intracranial masses. Trace subarachnoid hemorrhage noted in the left superior frontal sulcus. Trace right parietal parafalcine subdural hematomas noted. There is cerebral volume loss for age, with resultant ventricular and sulcal prominence. There are periventricular and deep white matter chronic small vessel ischemic changes. There is intracranial internal carotid artery and vertebral artery atherosclerosis. Skull and face: Calvarium and visualized facial bones appear intact, without suspicious lesions. Sinuses: Visualized sinuses and mastoids are clear. IMPRESSION: 1. Trace left frontal subarachnoid hemorrhage. 2. Trace right parietal parafalcine subdural hematoma. Findings discussed with Dr. Mcnair on April 26, 2020 at 10:15 a.m.. Dictated by: Bel Lui MD, PhD on 04/26/2020 at 10:08 Approved by: Bel Lui MD, PhD on 04/26/2020 at 10:24 [facility] Narrative Medical decision making narrative: Patient is feeling much better after Zofran and Protonix he is tolerating oral fluids. CT does show a trace amount of subdural hematoma and subarachnoid hemorrhage. [facility] confirms that this head CT is stable from the previous 2 days ago. Neurologically intact without headache. My states that he does have some repetitive questioning since the injury not any worse today. However I have not noticed any on exam. Discharge Plan Departure Patient Disposition: Home Clinical Impression: Acute subdural hematoma, Concussion syndrome Subarachnoid hematoma Qualifiers: Encounter type: initial encounter Loss of consciousness presence/duration: with LOC of 30 min or less Qualified Code(s): S06.6X1A - Traumatic subarachnoid hemorrhage with loss of consciousness of 30 minutes or less, initial encounter Discharge Date/Time: 04/26/20 12:15 Instructions: Subdural Hematoma Activity Restrictions/Additional Instructions: *You have been diagnosed with is found today that you have stable subdural hematoma and subarachnoid bleeding *What to do: You may experience some headache and some repetitive questioning and some vomiting this goes along with concussion syndrome. However if any of the symptoms worsen you need to return to the emergency department immediately *Continue to take medications as directed Zofran 4 mg every 8 hours if needed for nausea vomiting--> SENT TO [facility] [place] Tylenol 650 mg every 4-6 hours if needed for pain Stop taking aspirin Avoid NSAIDs such as ibuprofen, Motrin, Aleve, naproxen, Advil etc *Follow up with your primary care provider in 2-3 days *Return to ER if you should have worsening headache persistent vomiting, increased confusion, seizure, difficulty speaking, weakness, difficulty walking, balance problems, dizziness or any new, worsening or concerning symptoms Prescriptions: New ondansetron 4 mg tablet,disintegrating 4 mg PO Q8H PRN (Reason: nausea and vomiting) Qty: 10 RF: 0 No Action latanoprost [Xalatan] 0.005 % drops 1 drp EYE-LEFT BEDTIME Qty: 0 RF: 0 coenzyme Q10 60 mg Capsule 60 mg PO DAILY Qty: 0 RF: 0 aspirin 81 MG tablet,delayed release (DR/EC) 81 mg PO QDAY Qty: 0 RF: 0 Alphagan P 0.1 % drops 1 drp OPHTH DAILY Qty: 10 RF: 0 ferrous gluconate 236 mg (27 mg iron) Tablet 236 mg PO DAILY Qty: 0 RF: 0 cholecalciferol (vitamin D3) [Vitamin D3] 1,000 unit Capsule 2,000 - 4,000 unit PO DAILY Qty: 0 RF: 0 milk thistle 150 mg capsule 150 mg PO DAILY Qty: 0 RF: 0 allopurinol 300 mg tablet 150 mg PO QDAY Qty: 90 RF: 3 trazodone 50 mg tablet 50 mg PO BEDTIME Qty: 30 RF: 0 quetiapine 50 mg tablet 50 mg PO BEDTIME Qty: 90 RF: 0 ibuprofen 800 mg tablet 400 mg PO TID PRN (Reason: Moderate Pain (Scale Score 5-6)) RF: 0 rosuvastatin 10 mg tablet 10 mg PO DAILY Qty: 90 RF: 3 baclofen 10 mg tablet 10 mg PO DAILY Qty: 90 RF: 3 oxycodone 5 mg tablet 5 mg PO Q4H PRN (Reason: pain) Qty: 20 RF: 0 Referrals: Gigi Copeland MD [Primary Care Provider] -
--- NOTE | 2020-04-26 08:13 | PC.NURSE ---
pt c/o vomiting all night. pt was dc'd yesterday after staying in hospital overnight. pt had glf, injuring head and right ribs. pt is normally a regular drinker, states he doesnt drink anymore since fall.
[2020-04-26 08:26] LABS: Add Manual Diff / Slide Review NO; Basophils Absolute Auto 0 /uL (0-100); Basophils Percent Auto 0.5 % (0-2); Eosinophils Absolute Auto 0 /uL (0-450); Eosinophils Percent Auto 0.4 % (2-4); Hemoglobin 15.4 g/dL (13.5-17.5); Lymphocytes Absolute Auto 700 /uL (1100-4500); Lymphocytes Percent Auto 12.2 % (25-40); Mean Corpuscular Hemoglobin 33.6 PG (26-34); Monocytes Absolute Auto 400 /uL (0-900); Monocytes Percent Auto 6.9 % (3-14); Neutrophils Absolute Auto 4900 /uL (1500-7000); Platelet Count 144 X10^3/uL (150-400); Red Blood Cell Count 4.59 X10^6/uL (4.5-5.9); Red Cell Distribution Width 12.6 % (11.6-14.8); White Blood Cell Count 6.1 X10^3/uL (4.5-11.0)
[2020-04-26] MEDS: SODIUM CHLORIDE 0.9% 1,000 ML 1000 ML IV (08:29)
[2020-04-26] MEDS: ONDANSETRON 4 MG/2 ML INJ IV (08:29)
[2020-04-26] MEDS: PANTOPRAZOLE 40 MG VIAL IV (08:29)
[2020-04-26 08:30] VITALS: BP 153/78; PULSE 71
[2020-04-26 08:31] LABS: Alanine Aminotransferase 35 IU/L (<50); Albumin 4.8 g/dL (3.5-5.0); Albumin Globulin Ratio 1.3 (1.0-2.8); Alkaline Phosphatase 78 U/L (38-126); Aspartate Aminotransferase 58 IU/L (17-59); BUN Creatinine Ratio 20.5 (6-22); Bilirubin Total 1.7 mg/dL (0.2-1.3); Blood Urea Nitrogen 15 mg/dL (9-20); Calcium 9.1 mg/dL (8.4-10.2); Carbon Dioxide 27 mmol/L (22-32); Chloride 98 mmol/L (98-107); Estimated Glomerular Filt Rate > 60.0 mL/min (>60); Globulin 3.6 g/dL (1.7-4.1); Glucose 127 mg/dL (80-110); HEMOLYSIS < 15 (0-50); Lipase 41 U/L (23-300); Potassium 3.8 mmol/L (3.4-5.1); Sodium 136 mmol/L (137-145); Total Protein 8.4 g/dL (6.3-8.2)
[2020-04-26 09:30] VITALS: BP 156/86; PULSE 77
--- NOTE | 2020-04-26 09:43 | DI.CT.S_ITS ---
PROCEDURE: CT HEAD/BRAIN WO CON INDICATIONS: vomiting recent head injury on asa TECHNIQUE: Noncontrast 4.5 mm thick angled axial sections acquired from the foramen magnum to the vertex, with coronal and sagittal reformats. For radiation dose reduction, the following was used: automated exposure control, adjustment of mA and/or kV according to patient size. COMPARISON: [facility], CT, CT HEAD/BRAIN WO CON, 04/24/2020, 18:51. FINDINGS: Image quality: Excellent. CSF spaces: Basal cisterns are patent. No extra-axial fluid collections. The ventricles are symmetric in size and shape. Brain: No intracranial masses. Trace subarachnoid hemorrhage noted in the left superior frontal sulcus. Trace right parietal parafalcine subdural hematomas noted. There is cerebral volume loss for age, with resultant ventricular and sulcal prominence. There are periventricular and deep white matter chronic small vessel ischemic changes. There is intracranial internal carotid artery and vertebral artery atherosclerosis. Skull and face: Calvarium and visualized facial bones appear intact, without suspicious lesions. Sinuses: Visualized sinuses and mastoids are clear. IMPRESSION: 1. Trace left frontal subarachnoid hemorrhage. 2. Trace right parietal parafalcine subdural hematoma. Findings discussed with Dr. Mcnair on April 26, 2020 at 10:15 a.m.. Dictated by: Bel Lui MD, PhD on 04/26/2020 at 10:08 Approved by: Bel Lui MD, PhD on 04/26/2020 at 10:24
[2020-04-26 11:30] VITALS: BP 147/81; PULSE 73; RESP 15; O2SAT 99
== END 2020-04-26 12:15 | disposition home or self-care (01) ==
PROVIDERS: Emergency Provider Emergency Medicine; PCP Internal Medicine
DX: S06.6X1A Traumatic subarachnoid hemorrhage with loss of consciousness of 30 minutes or less, initial encounter (principal); F07.81 Postconcussional syndrome; R11.2 Nausea with vomiting, unspecified; R41.0 Disorientation, unspecified; W10.9XXD Fall (on) (from) unspecified stairs and steps, subsequent encounter
CPT/HCPCS: 36415; 70450; 80053; 83690; 85025; 96361; 96374; 96375; 99284; C9113; J2405

== ENCOUNTER → 2020-08-10 10:58 | Outpatient (CLI) | payer MEDICARE, BC, SELFPAY ==
[2020-04-24 23:34] VITALS: BMI 24.5
[2020-08-10 11:57] LABS: COVID19 -Nasal RAPID Negative (Negative)
== END ==
PROVIDERS: PCP Internal Medicine; Visit Provider Specialist
DX: Z01.812 Encounter for preprocedural laboratory examination (principal); Z20.828 Contact with and (suspected) exposure to other viral communicable diseases
CPT/HCPCS: 87635; C9803

== ENCOUNTER 2020-08-13 08:31 | Day surgery (SDC) | payer MEDICARE, BC, SELFPAY ==
[2020-04-24 23:34] VITALS: BMI 24.5
[2020-08-09 10:32] VITALS: BMI 25.0
[2020-08-13] VITALS (9 sets, daily range): BP systolic 112–143; BP diastolic 68–83; PULSE 71–93; RESP 8–16; TEMP 36.6–36.8; O2SAT 96–100; BMI 24.1
[2020-08-13] MEDS: ACETAMINOPHEN 325 MG TABLET 975 MG PO (08:53)
[2020-08-13] MEDS: LACTATED RINGERS 1,000 ML 42 ML IV (08:54)
--- NOTE | 2020-08-13 09:21 | PM.PREOP ---
Pre-operative Note COVID-19 COVID-19 status: Negative Result date/Date tested (Pos, Neg/Pending): 08/10/20 Interval Note History & Physical reviewed/Exam performed by Physician: Yes Changes to H&P: No
[2020-08-13] MEDS: CEFAZOLIN 2 GM/100 ML FROZ.PIGGY IV (09:55)
--- NOTE | 2020-08-13 10:15 | SUR.OPER ---
Supine on padded OR bed, head on pillow, arms secured on padded arm boards at <90 degrees abduction, legs uncrossed, safety belt at thigh, tape over blanket over lower legs.
[2020-08-13] MEDS: BUPIVACAINE 0.5% (PF) VIAL 30 ML INJ (10:23)
--- NOTE | 2020-08-13 12:12 | P.OP_ITS ---
Operative Date/Time/Diagnoses Date of procedure: 08/13/20 Time of procedure: 12:00 Pre-op diagnosis: Bilateral inguinal hernias reducible. Post-op diagnosis: same (Right-sided direct and indirect hernia. Left side lipoma of the cord and direct hernia.) Procedure & Clinicians Procedure: Bilateral Repair with mesh onlay (Tara repair) Same procedure as scheduled: Yes Indications: Patient is gentleman with bilateral hernias brought in for repair Click Yes if Unassisted: Yes Anesthesia Type: General Operative Notes Findings: Bilateral direct hernias. Right side had an indirect sac. Left side had lipoma of the cord. Closure Type: primary Specimen(s): none sent Prosthetic devices, grafts, tissues, transplants, or devices: 3 x 6 piece of mesh tapered to appropriate size. Estimated Blood Loss (mL): 20 Blood products transfused: none Procedure in detail: Patient is placed supine on the operating room table underwent general LMA anesthesia. He was prepped and draped in the usual fashion. Transverse incision was made the right lower abdomen overlying the internal ring. It was carried down level the external oblique. The external oblique was opened parallel to its fibers through the external ring. Cord struc tures were elevated in the cremaster open proximally. Search was undertaken for an indirect sac. One was identified and from surrounding structures. Was opened had no contents. Was suture ligated with a 2-0 silk. The stump was allowed to retract after the portion of the sac distal to the tie I was removed. The floor was quite weakened and consistent with a direct hernia. I decided to perform Tara repair. A 3-0 Vicryl was used to close the cremaster. A 3 x 6 in piece of permanent mesh was placed and tacked to the pubic tubercle. An opening was created for the cord structures to egress through it. The tails of the distal portion of the mesh were tapered to appropriate length so that it would lay under the external oblique the internal oblique. The mesh was tacked at the pubic tubercle, the posterior mail of the anterior rectus sheath, of the ileoinguinal ligament, and superior and lateral the cord. The external oblique was closed with a running 3-0 Vicryl. The subQ was closed with interrupted 3 0 Vicryl the skin was closed running 4-0 Vicryl subcuticular stitch. Attention was turned to the opposite/left side. Mirror incision was created and an operat ion performed that was nearly identical to the right side. The only difference was there was no in tacked though a search was made to find 1. The wound was an lipoma of the cord which was removed and cauterized at the level the deep epigastric vessels. One other difference was there was a complex of nerves which I chose to preserve but it required that I cut openings in the mesh so that the mesh would not be directly against the nerves. Closure was the same as the opposite side. This is on Steri-Strips were applied to both sides after injecting additional local anesthetic. The patient had dressings applied and was awakened and taken recovery room good condition. Complications: none Post-operative Condition: stable Disposition: PACU Plan for aftercare: Follow-up in the office
[2020-08-13] MEDS: OXYCODONE IR 5 MG TABLET PO ×2 (12:29→12:53)
== END 2020-08-13 13:10 | disposition home or self-care (01) ==
PROVIDERS: PCP Internal Medicine; Referring Provider Internal Medicine; Visit Provider Specialist
PROC: (CPT 49505; principal; 2020-08-13 09:45)
DX: K40.20 Bilateral inguinal hernia, without obstruction or gangrene, not specified as recurrent (principal); D17.6 Benign lipomatous neoplasm of spermatic cord; F17.210 Nicotine dependence, cigarettes, uncomplicated; G47.33 Obstructive sleep apnea (adult) (pediatric); K21.9 Gastro-esophageal reflux disease without esophagitis
CPT/HCPCS: 49505; C1781; J0690; J1100; J1885; J2405; J2704; J3010

== ENCOUNTER → 2020-10-02 08:19 | Outpatient (CLI) | payer MEDICARE, BC, SELFPAY ==
[2020-04-24 23:34] VITALS: BMI 24.5
[2020-10-02 09:26] LABS: Alanine Aminotransferase 13 IU/L (<50); Albumin 3.9 g/dL (3.5-5.0); Albumin Globulin Ratio 1.4 (1.0-2.8); Alkaline Phosphatase 53 U/L (38-126); Aspartate Aminotransferase 29 IU/L (17-59); BUN Creatinine Ratio 16.2 (6-22); Bilirubin Total 0.5 mg/dL (0.2-1.3); Blood Urea Nitrogen 11 mg/dL (9-20); Calcium 8.7 mg/dL (8.4-10.2); Carbon Dioxide 31 mmol/L (22-32); Chloride 102 mmol/L (98-107); Cholesterol 145 mg/dL (140-199); Estimated Glomerular Filt Rate > 60.0 mL/min (>60); Globulin 2.7 g/dL (1.7-4.1); Glucose 101 mg/dL (80-110); HDL Cholesterol 45 mg/dL (40-60); HEMOLYSIS 17 (0-50); LDL Cholesterol Calculated 72 mg/dL (<100); Potassium 4.2 mmol/L (3.4-5.1); Sodium 136 mmol/L (137-145); Total Protein 6.6 g/dL (6.3-8.2); Triglycerides 140 mg/dL (35-150)
== END ==
PROVIDERS: PCP Internal Medicine; Referring Provider Internal Medicine; Visit Provider Internal Medicine
DX: E78.2 Mixed hyperlipidemia (principal); K21.9 Gastro-esophageal reflux disease without esophagitis; M10.9 Gout, unspecified
CPT/HCPCS: 36415; 80053; 80061

== ENCOUNTER → 2020-10-03 14:40 | Outpatient (CLI) | payer MEDICARE, BC, SELFPAY ==
[2020-04-24 23:34] VITALS: BMI 24.5
[2020-10-03] MEDS: COVID-19 VACC #1, MRNA(MOD) 100 MCG/0.5 ML VIAL IM (14:46)
== END ==
PROVIDERS: PCP Internal Medicine; Visit Provider Internal Medicine
DX: Z23 Encounter for immunization (principal)
CPT/HCPCS: 0011A; 91301

== ENCOUNTER → 2020-11-01 13:27 | Outpatient (CLI) | payer MEDICARE, BC, SELFPAY ==
[2020-04-24 23:34] VITALS: BMI 24.5
[2020-11-01] MEDS: COVID-19 VACC #2, MRNA(MOD) 100 MCG/0.5 ML VIAL IM (13:32)
== END ==
PROVIDERS: PCP Internal Medicine; Visit Provider Internal Medicine
DX: Z23 Encounter for immunization (principal)
CPT/HCPCS: 0012A; 91301

== ENCOUNTER → 2021-05-02 09:08 | Outpatient (CLI) | payer MEDICARE, BC, SELFPAY ==
[2020-04-24 23:34] VITALS: BMI 24.5
--- NOTE | 2021-05-02 09:10 | DI.US.S_ITS ---
PROCEDURE: US RETRO PERITONEAL LIMITED INDICATIONS: AAA FOLLOW-UP TECHNIQUE: Real time scanning was performed of the aorta and iliac arteries, with image documentation. COMPARISON: [facility], US, US RETRO PERITONEAL LIMITED, 11/10/2019, 9:42. [facility], CT, CT CHEST ABD PEL W CON, 04/24/2020, 18:51. [facility], US, US ABDOMEN COMPLETE, 03/22/2019, 8:22. FINDINGS: Aorta: Proximal aortic diameter measures 2.3 cm. Mid-aorta measures 1.6 cm. A fusiform distal abdominal aortic aneurysm is seen, which measures 3.9 cm AP by 4.3 cm transversely, with a craniocaudal extent of 7.5 cm. Relatively prominent mural thrombus is seen, with an internal lumen of 1.5 cm. Previously, this aneurysm measured 3.1 cm AP. Iliac arteries: Right common iliac artery measures 1.2 cm. Left common iliac artery measures 1.2 cm. IMPRESSION: Increased size of the distal abdominal aortic aneurysm, now measuring 3.9 cm AP. Prominent mural thrombus is seen, with an internal lumen of 1.5 cm. Dictated by: Cas Gallegos M.D. on 05/02/2021 at 9:31 Approved by: Cas Gallegos M.D. on 05/02/2021 at 9:33
== END ==
PROVIDERS: PCP Internal Medicine; Referring Provider Internal Medicine; Visit Provider Internal Medicine
DX: I71.4 Abdominal aortic aneurysm, without rupture (principal)
CPT/HCPCS: 76775

== ENCOUNTER 2021-05-06 18:03 | Emergency (ER) | payer MEDICARE, BC, SELFPAY ==
[2020-04-24 23:34] VITALS: BMI 24.5
[2021-05-06 18:07] VITALS: BP 134/81; PULSE 75; RESP 22; TEMP 36.8; O2SAT 95; BMI 23.1
--- NOTE | 2021-05-06 18:11 | DI.RAD.S_ITS ---
PROCEDURE: XR CHEST 2V INDICATIONS: trauma TECHNIQUE: 2 views of the chest were acquired. COMPARISON: [facility], CR, XR CHEST 1V, 04/21/2019, 15:13. FINDINGS: Surgical changes and devices: Partially imaged anterior cervical spinal fusion. Lungs and pleura: Lungs are clear. No pleural effusions or pneumothorax. Mediastinum: Mediastinal contours are normal. Heart size is normal. Bones and chest wall: No suspicious bony abnormalities. Soft tissues appear unremarkable. IMPRESSION: No acute cardiopulmonary abnormalities or focal airspace disease. Dictated by: Bernardino Dee M.D. on 05/06/2021 at 18:40 Approved by: Bernardino Dee M.D. on 05/06/2021 at 18:42
--- NOTE | 2021-05-06 18:11 | DI.CT.S_ITS ---
PROCEDURE: CT CERVICAL SPINE WO CON INDICATIONS: trauma TECHNIQUE: Noncontrast 3 mm thick sections acquired from the skull base to the T4 level. Sagittal and coronal reformats were then constructed. For radiation dose reduction, the following was used: automated exposure control, adjustment of mA and/or kV according to patient size. COMPARISON: [facility], CT, CT CERVICAL SPINE WO CON, 04/24/2020, 18:51. FINDINGS: Image quality: Slight degradation secondary to patient motion artifact. Bones: No acute fractures or dislocations. No acute compression fractures of the vertebral bodies. Craniocervical junction is intact. C1-C2 relationship is preserved. Visualized superior ribs are intact. Stable postsurgical changes of anterior fusion of C5 and C6 without complication. Stable appearance of multilevel cervical spondylosis with associated bony neural foraminal narrowing and mild spinal canal stenosis. Soft tissues: Prevertebral soft tissues are normal in thickness. No paravertebral hematomas. No apical pneumothoraces. IMPRESSION: 1. CT cervical spine without acute fracture or dislocation. 2. Stable postsurgical changes of anterior fusion of C5-6. 3. Multilevel cervical spondylosis, stable. Dictated by: Bernardino Dee M.D. on 05/06/2021 at 18:35 Approved by: Bernardino Dee M.D. on 05/06/2021 at 18:39
--- NOTE | 2021-05-06 18:11 | DI.CT.S_ITS ---
PROCEDURE: CT HEAD/BRAIN WO CON INDICATIONS: trauma TECHNIQUE: Noncontrast 4.5 mm thick angled axial sections acquired from the foramen magnum to the vertex, with coronal and sagittal reformats. For radiation dose reduction, the following was used: automated exposure control, adjustment of mA and/or kV according to patient size. COMPARISON: [facility], CT, CT HEAD/BRAIN WO CON, 04/26/2020, 9:50. [facility], CT, CT HEAD/BRAIN WO CON, 04/24/2020, 18:51. FINDINGS: Image quality: Excellent. CSF spaces: Basal cisterns are patent. No extra-axial fluid collections. The ventricles are symmetric in size and shape. Brain: No intracranial bleeds or masses. There is cerebral volume loss for age, with resultant ventricular and sulcal prominence. There are periventricular and deep white matter chronic small vessel ischemic changes. There is intracranial internal carotid artery atherosclerosis. Skull and face: Calvarium and visualized facial bones appear intact, without suspicious lesions. Sinuses: Visualized sinuses and mastoids are clear. IMPRESSION: 1. CT head without acute intracranial abnormalities or acute calvarial fractures. 2. Age-related senescent changes and sequela of chronic small vessel ischemic disease. Dictated by: Bernardino Dee M.D. on 05/06/2021 at 18:35 Approved by: Bernardino Dee M.D. on 05/06/2021 at 18:35
--- NOTE | 2021-05-06 18:21 | DI.RAD.S_ITS ---
PROCEDURE: XR KNEE RT 3V INDICATIONS: trauma TECHNIQUE: 3 views of the knee were acquired. COMPARISON: None. FINDINGS: Bones: Prominent enthesophyte at the insertion site of the distal quadriceps tendon. There is a subtle linear lucency near the base which may be artifact versus a nondisplaced fracture of the spur. There is focal overlying soft tissue swelling of the anterior right knee. No no other fracture seen. Alignment is maintained. Tricompartmental degenerative changes of the right knee with moderate medial compartment joint space narrowing. No suspicious bony lesions. Soft tissues: No substantial joint effusion. No suspicious soft tissue calcifications. IMPRESSION: Focal anterior right knee soft tissue swelling overlying a prominent enthesophyte at the insertion site of the distal quadriceps tendon onto the superior pole the patella. There is a subtle linear lucency at its base which may represent an artifact versus nondisplaced fracture through the base of the spur. Otherwise, no fracture or dislocation. Tricompartmental degenerative changes. Dictated by: Bernardino Dee M.D. on 05/06/2021 at 18:44 Approved by: Bernardino Dee M.D. on 05/06/2021 at 18:47
--- NOTE | 2021-05-06 18:21 | DI.RAD.S_ITS ---
PROCEDURE: XR HIP W PEL IF DONE LT 2V INDICATIONS: trauma TECHNIQUE: AP pelvis and lateral view of the left hip acquired. COMPARISON: [facility], CR, XR PELVIS W LATERAL HIP LT, 04/03/2015, 13:59. FINDINGS: Bones: Patient is status post left total hip arthroplasty, with hardware components in expected positions. The hip joint appears congruent. The visualized bony structures appear intact. Visualized pelvic ring appears intact. Lower lumbar spondylosis. Advanced degenerative changes of the right hip, not significantly changed. Soft tissues: Overlying postoperative changes are noted. No suspicious soft tissue densities. IMPRESSION: 1. Left hip and pelvis without acute fracture or dislocation. 2. Stable appearance of left hip arthroplasty without hardware complication. 3. Advanced degenerative changes of the right hip joint. 4. Lower lumbar spondylosis Dictated by: Bernardino Dee M.D. on 05/06/2021 at 18:43 Approved by: Bernardino Dee M.D. on 05/06/2021 at 18:44
[2021-05-06] MEDS: KETOROLAC 30 MG/ML VIAL IM (19:04)
--- NOTE | 2021-05-06 20:03 | PC.NURSE ---
Patient's wounds were cleaned with soap and water; he tolerated this well with IM toradol.
--- NOTE | 2021-05-07 05:57 | ED.TRAUMA ---
HPI - Trauma General Chief Complaint: Trauma Stated Complaint: fall face/right knee injury double vision Source: patient Mode of arrival: Ambulatory History of Present Illness HPI narrative: Patient left without being seen. EKG and imaging were reviewed. Related Data Home Medications Medication Instructions Recorded Confirmed latanoprost 0.005 % eye drops 1 drp EYE-LEFT BEDTIME #0 02/21/11 09/24/20 (Xalatan) brimonidine 0.1 % eye drops 1 drp OPHTH DAILY #10 ml 01/21/13 09/24/20 (Alphagan P) cholecalciferol (vitamin D3) 25 2,000 - 4,000 unit PO DAILY #0 01/21/13 09/24/20 mcg (1,000 unit) capsule (Vitamin D3) coenzyme Q10 60 mg capsule 60 mg PO DAILY #0 01/21/13 09/24/20 ferrous gluconate 236 mg (27 mg 236 mg PO DAILY #0 01/21/13 09/24/20 iron) tablet milk thistle 150 mg capsule 150 mg PO DAILY #0 cap 01/31/19 09/24/20 Previous Rx's Medication Instructions Recorded allopurinol 300 mg tablet 150 mg PO QDAY #90 tab 04/03/20 trazodone 50 mg tablet 50 mg PO BEDTIME #30 tab 04/04/20 ondansetron HCl 4 mg tablet 4 mg PO Q6H PRN #10 tab 08/13/20 (Zofran) baclofen 10 mg tablet 10 mg PO DAILY #90 tab 09/07/20 quetiapine 50 mg tablet 50 mg PO BEDTIME #90 tab 09/24/20 rosuvastatin 10 mg tablet 10 mg PO DAILY #90 tab 11/19/20 Allergies Allergy/AdvReac Type Severity Reaction Status Date / Time hydrocodone AdvReac Intermediate difficulty Verified 09/24/20 10:41 breathing? Convulsions from Lortab methocarbamol [From Robaxin] AdvReac Mild passed Verified 09/24/20 10:41 out, felt horrible Patient History Medical History (Updated 05/06/21 @ 21:09 by Fernanda Potts RN) AAA (abdominal aortic aneurysm) (~2018) Alcohol abuse Arthritis Bilateral inguinal hernia without obstruction or gangrene Chronic back pain Chronic left hip pain DISH (diffuse idiopathic skeletal hyperostosis) GERD (gastroesophageal reflux disease) (~2018) Glaucoma (02/21/11) Gout (02/21/11) Hyperlipidemia (02/21/11) Insomnia Sciatica Symptomatic cholelithiasis Thoracic aortic aneurysm Surgical History (Updated 09/24/20 @ 10:57 by Gigi Copeland MD) Anesthesia Hx of fusion of cervical spine (~08/2005) S/P laparoscopic cholecystectomy (~11/2018) Status post bilateral hernia repair (~07/2020) Status post left hip replacement (~12/2012) Status post lumbar surgery Family History Father Bladder cancer Brother Throat cancer Grandfather Stroke Social History marital status: household members: spouse occupational status: previously employed Smoking Status: Former smoker alcohol intake: current substance use type: marijuana Smoking Status: Former smoker alcohol intake frequency: 0-2 drinks per day Substance Use Type: marijuana Exam Initial Vital Signs Initial Vital Signs: Vital Signs Temperature 98.3 F 05/06/21 18:07 Pulse Rate 75 05/06/21 18:07 Respiratory Rate 22 05/06/21 18:07 Blood Pressure 134/81 05/06/21 18:07 Pulse Oximetry 95 05/06/21 18:07 Course Orders Ordered: Discontinued Medications Ketorolac Tromethamine (Ketorolac 30 Mg/Ml Vial) 30 mg IM NOW ONE Stop: 05/06/21 19:01 Last Admin: 05/06/21 19:04 Dose: 30 mg Documented by: JAXSON MDM - Trauma Imaging Data CT scan - head: Radiologist's Impression: Launch?[place] [address] CT Scan Report Signed Patient: Nisha Larsen MR#: [id number] : 1945 Acct:[id number] Age/Sex: 75 / M Date of Service: 05/06/21 Loc: ED Accession Number: [id number] ?? Procedure: CT head/brain wo con Ordering Provider: Marline Mcnair D.O. PROCEDURE:? CT HEAD/BRAIN WO CON ? INDICATIONS:? trauma ? TECHNIQUE:? Noncontrast 4.5 mm thick angled axial sections acquired from the foramen magnum to the vertex, with coronal and sagittal reformats.? For radiation dose reduction, the following was used:? automated exposure control, adjustment of mA and/or kV according to patient size.? ? COMPARISON:? [facility], CT, CT HEAD/BRAIN WO CON, 04/26/2020, 9:50.? [facility], CT, CT HEAD/BRAIN WO CON, 04/24/2020, 18:51. ? FINDINGS:? Image quality:? Excellent.? ? CSF spaces:? Basal cisterns are patent.? No extra-axial fluid collections.? The ventricles are symmetric in size and shape.? ? Brain:? No intracranial bleeds or masses.? There is cerebral volume loss for age, with resultant ventricular and sulcal prominence.? There are periventricular and deep white matter chronic small vessel ischemic changes.? There is intracranial internal carotid artery atherosclerosis.? ? Skull and face:? Calvarium and visualized facial bones appear intact, without suspicious lesions.? ? Sinuses:? Visualized sinuses and mastoids are clear.? ? IMPRESSION:? 1. CT head without acute intracranial abnormalities or acute calvarial fractures. ? 2. Age-related senescent changes and sequela of chronic small vessel ischemic disease. ? ? ? Dictated by: Bernardino Dee M.D. on 05/06/2021 at 18:35 ? ? Approved by: Bernardino Dee M.D. on 05/06/2021 at 18:35?? CT - cervical spine: Radiologist's Impression: [place] [address] CT Scan Report Signed Patient: Nisha Larsen MR#: [id number] : 1945 Acct:[id number] Age/Sex: 75 / M Date of Service: 05/06/21 Loc: ED Accession Number: [id number] ?? Procedure: CT cervical spine wo con Ordering Provider: Marline Mcnair D.O. PROCEDURE:? CT CERVICAL SPINE WO CON ? INDICATIONS:? trauma ? TECHNIQUE:? Noncontrast 3 mm thick sections acquired from the skull base to the T4 level.? Sagittal and coronal reformats were then constructed.? For radiation dose reduction, the following was used:? automated exposure control, adjustment of mA and/or kV according to patient size.? ? COMPARISON:? [facility], CT, CT CERVICAL SPINE WO CON, 04/24/2020, 18:51. ? FINDINGS:? Image quality:? Slight degradation secondary to patient motion artifact.? ? Bones:? No acute fractures or dislocations.? No acute compression fractures of the vertebral bodies. Craniocervical junction is intact. C1-C2 relationship is preserved. Visualized superior ribs are intact.? Stable postsurgical changes of anterior fusion of C5 and C6 without complication.? Stable appearance of multilevel cervical spondylosis with associated bony neural foraminal narrowing and mild spinal canal stenosis. ? Soft tissues:? Prevertebral soft tissues are normal in thickness.? No paravertebral hematomas.? No apical pneumothoraces.? ? ? IMPRESSION:? ? 1. CT cervical spine without acute fracture or dislocation. ? 2. Stable postsurgical changes of anterior fusion of C5-6. ? 3. Multilevel cervical spondylosis, stable.? Dictated by: Bernardino Dee M.D. on 05/06/2021 at 18:35 ? ? Approved by: Bernardino Dee M.D. on 05/06/2021 at 18:39?? Chest x-ray: Radiologist's Impression: [place] [address] XRay Report Signed Patient: Nisha Larsen MR#: [id number] : 1945 Acct:[id number] Age/Sex: 75 / M Date of Service: 05/06/21 Loc: ED Accession Number: [id number] ?? Procedure: XR chest 2V Ordering Provider: Marline Mcnair D.O. PROCEDURE:? XR CHEST 2V ? INDICATIONS:? trauma ? TECHNIQUE:? 2 views of the chest were acquired.? ? COMPARISON:? [facility], , XR CHEST 1V, 04/21/2019, 15:13. ? FINDINGS:? ? Surgical changes and devices:? Partially imaged anterior cervical spinal fusion.? ? Lungs and pleura:? Lungs are clear.? No pleural effusions or pneumothorax.? ? Mediastinum:? Mediastinal contours are normal.? Heart size is normal.? ? Bones and chest wall:? No suspicious bony abnormalities.? Soft tissues appear unremarkable.? ? IMPRESSION:? No acute cardiopulmonary abnormalities or focal airspace disease. ? ? ? Dictated by: Bernardino Dee M.D. on 05/06/2021 at 18:40 ? ? Approved by: Bernardino Dee M.D. on 05/06/2021 at 18:42 Extremity x-ray #1: Radiologist's Impression: [address] [address] XRay Report Signed Patient: Nisha Larsen MR#: [id number] : 1945 Acct:[id number] Age/Sex: 75 / M Date of Service: 05/06/21 Loc: ED Accession Number: [id number] ?? Procedure: XR hip w pel if done LT 2V Ordering Provider: Marline Mcnair D.O. PROCEDURE:? XR HIP W PEL IF DONE LT 2V ? INDICATIONS:? trauma ? TECHNIQUE:? AP pelvis and lateral view of the left hip acquired.? ? COMPARISON:? [facility] , XR PELVIS W LATERAL HIP LT, 04/03/2015, 13:59. ? FINDINGS:? ? Bones:? Patient is status post left total hip arthroplasty, with hardware components in expected positions.? The hip joint appears congruent.? The visualized bony structures appear intact.? Visualized pelvic ring appears intact.? Lower lumbar spondylosis.? Advanced degenerative changes of the right hip, not significantly changed. ? Soft tissues:? Overlying postoperative changes are noted.? No suspicious soft tissue densities.? ? ? IMPRESSION:? 1. Left hip and pelvis without acute fracture or dislocation. ? 2. Stable appearance of left hip arthroplasty without hardware complication. ? 3. Advanced degenerative changes of the right hip joint. ? 4. Lower lumbar spondylosis? Dictated by: Bernardino Dee M.D. on 05/06/2021 at 18:43 ? ? Approved by: Brenardino Dee M.D. on 05/06/2021 at 18:44?? Extremity x-ray #2: Radiologist's Impression: Nisha Larsen??75??M??1945 ? Allergy/Adv: hydrocodone, methocarbamol (More??) Close Knee X-Ray (Signed) Bernardino Dee - 05/06/21 Hip X-Ray (Signed) Bernardino Dee - 05/06/[address] (Signed) Bernardino Dee - 05/06/21 Chest X-Ray (Signed) Bernardino Dee - 05/06/[address] (Signed) Bernardino Dee - 05/06/21 Retroperitoneum Ultrasound (Signed) Cas Gallegos - 05/02/[address] (Signed) HuBel morse - 04/26/20 Pelvis X-Ray (Signed) Riaz Hyatt - 04/24/20 Femur X-Ray (Signed) Riaz Hyatt - 04/24/[address] (Signed) Riaz Hyatt - 04/24/20 Chest/Abdomen/Pelvis CT (Addendum) Riaz Hyatt - 04/24/[address] (Signed) Riaz Hyatt - 04/24/20 Retroperitoneum Ultrasound (Signed) Salazar Lambert - 11/10/19 Carotid Doppler Study (Signed) Nan Bolivar - 09/16/19 Chest/Abdomen/Pelvis CTA (Signed) Call,Guillermo - 04/21/19 Chest X-Ray (Signed) Salazar Lambert - 04/21/19 Abdomen Ultrasound (Signed) Call,Guillermo - 03/22/19 Abdomen Ultrasound (Signed) Salazar Lambert - 12/15/18 Chest/Abdomen CTA (Signed) Shanon Escobar - 11/11/18 Abdomen Ultrasound (Signed) Salazar Lambert - 11/04/18 DI Result CC 06/22/14 Launch?[place] [address] XRay Report Signed Patient: Nisha Larsen MR#: [id number] : 1945 Acct:[id number] Age/Sex: 75 / M Date of Service: 05/06/21 Loc: ED Accession Number: [id number] ?? Procedure: XR knee RT 3V Ordering Provider: Marline Mcnair D.O. PROCEDURE:? XR KNEE RT 3V ? INDICATIONS:? trauma ? TECHNIQUE:? 3 views of the knee were acquired.? ? COMPARISON:? None. ? FINDINGS:? ? Bones:? Prominent enthesophyte at the insertion site of the distal quadriceps tendon.? There is a subtle linear lucency near the base which may be artifact versus a nondisplaced fracture of the spur.? There is focal overlying soft tissue swelling of the anterior right knee.? No no other fracture seen.? Alignment is maintained.? Tricompartmental degenerative changes of the right knee with moderate medial compartment joint space narrowing.? No suspicious bony lesions.? ? Soft tissues:? No substantial joint effusion.? No suspicious soft tissue calcifications.? IMPRESSION:? ? Focal anterior right knee soft tissue swelling overlying a prominent enthesophyte at the insertion site of the distal quadriceps tendon onto the superior pole the patella.? There is a subtle linear lucency at its base which may represent an artifact versus nondisplaced fracture through the base of the spur. Otherwise, no fracture or dislocation. ? Tricompartmental degenerative changes.? ? Dictated by: Bernardino Dee M.D. on 05/06/2021 at 18:44 ? ? Approved by: Bernardino Dee M.D. on 05/06/2021 at 18:47 ECG Data Interpretation: Sinus rhythm occasional PVC. Rate of 70 3p are 194 QRS 86 QTC [address] No other ST acute changes noted. Discharge Plan Departure Patient Disposition: Left Without Being Seen Clinical Impression: Patient left without being seen
== END 2021-05-06 21:09 | disposition left against medical advice (07) ==
PROVIDERS: Emergency Provider Emergency Medicine; PCP Internal Medicine
DX: S09.90XA Unspecified injury of head, initial encounter (principal); H53.2 Diplopia; S89.91XA Unspecified injury of right lower leg, initial encounter; S79.912A Unspecified injury of left hip, initial encounter; W10.9XXA Fall (on) (from) unspecified stairs and steps, initial encounter
CPT/HCPCS: 70450; 71046; 72125; 73502; 73562; 93005; 96372; 99283; J1885

== ENCOUNTER → 2021-11-20 13:57 | Outpatient (CLI) | payer MEDICARE, BC, SELFPAY ==
[2020-04-24 23:34] VITALS: BMI 24.5
--- NOTE | 2021-11-20 14:00 | DI.US.S_ITS ---
PROCEDURE: US RETRO PERITONEAL LIMITED INDICATIONS: AAA TECHNIQUE: Real time scanning was performed of the aorta and iliac arteries, with image documentation. COMPARISON: [facility], RETRO PERITONEAL LIMITED, 11/10/2019, 9:42. [facility], RETRO PERITONEAL LIMITED, 05/02/2021, 9:18. FINDINGS: Aorta: Proximal aortic diameter measures 2.4 cm. Mid-aorta measures 1.8 cm. There is a distal abdominal aortic aneurysm seen that measures 4 cm AP x 3.6 cm transversely, with a craniocaudal extent of 8.1 cm, previously measuring 3.9 x 4.3 x 7.5 cm. Mural thrombus can be seen. Iliac arteries: Right common iliac artery measures 1.2 cm. Left common iliac artery measures 1.3 cm. IMPRESSION: No significant change of the distal abdominal aortic aneurysm, measuring 4 cm AP. Dictated by: Cas Gallegos M.D. on 11/21/2021 at 8:56 Approved by: Cas Gallegos M.D. on 11/21/2021 at 8:58
== END ==
PROVIDERS: PCP Internal Medicine; Referring Provider Internal Medicine; Visit Provider Internal Medicine
DX: I71.4 Abdominal aortic aneurysm, without rupture (principal)
CPT/HCPCS: 76775

== ENCOUNTER → 2021-12-30 11:50 | Outpatient (CLI) | payer MEDICARE, BC, SELFPAY ==
[2020-04-24 23:34] VITALS: BMI 24.5
--- NOTE | 2021-12-30 11:51 | DI.US.S_ITS ---
PROCEDURE: US CAROTID DOPPLER BI INDICATIONS: Peripheral vascular disease TECHNIQUE: Color and pulse Doppler interrogation was performed of both carotid systems, with image documentation and velocity measurements. COMPARISON: None. FINDINGS: Stenosis calculations are based on SRU (Society of Radiologists in Ultrasound) criteria. The flow velocities and the arterial waveforms are normal within both carotid arterial systems. Atherosclerotic plaque is seen on both sides. The estimated degree of internal carotid artery stenosis is less than 50%. Antegrade flow is confirmed within both vertebral arteries. IMPRESSION: No hemodynamically significant stenosis is seen. No significant change from the prior. Atherosclerotic plaque is noted bilaterally. Dictated by: Cas Gallegos M.D. on 12/30/2021 at 12:24 Approved by: Cas Gallegos M.D. on 12/30/2021 at 12:25
== END ==
PROVIDERS: PCP Internal Medicine; Referring Provider Internal Medicine; Visit Provider Internal Medicine
DX: I65.23 Occlusion and stenosis of bilateral carotid arteries (principal); I73.9 Peripheral vascular disease, unspecified
CPT/HCPCS: 93880

== ENCOUNTER → 2022-11-07 07:52 | Outpatient (CLI) | payer MEDICARE, BC, SELFPAY ==
[2020-04-24 23:34] VITALS: BMI 24.5
--- NOTE | 2022-11-07 07:55 | DI.US.S_ITS ---
PROCEDURE: US RETRO PERITONEAL LIMITED INDICATIONS: AAA TECHNIQUE: Real time scanning was performed of the aorta and iliac arteries, with image documentation. COMPARISON: [facility], , RETRO PERITONEAL LIMITED, 11/20/2021, 14:31. FINDINGS: Aorta: Proximal aortic diameter measures 2.4 cm. Mid-aorta measures 1.6 cm. Distal aortic diameter is 4.1 cm, previously 4.0 cm. Interval organization of the large plaque at this site, with increased erosion of the plaque. Iliac arteries: Right common iliac artery measures 1.3 cm. Left common iliac artery measures 1.3 cm. IMPRESSION: No significant interval change in size of the 4.1 cm infrarenal aortic aneurysm. Continued yearly follow-up is recommended. Dictated by: Leandro Wilkinson M.D. on 11/07/2022 at 9:35 Approved by: Leandro Wilkinson M.D. on 11/07/2022 at 9:37
[2022-11-07 10:45] LABS: Alanine Aminotransferase 19 IU/L (<50); Albumin 4.1 g/dL (3.5-5.0); Albumin Globulin Ratio 1.4 (1.0-2.8); Alkaline Phosphatase 51 U/L (38-126); Aspartate Aminotransferase 33 IU/L (17-59); BUN Creatinine Ratio 14.7 (6-22); Bilirubin Total 0.7 mg/dL (0.2-1.3); Blood Urea Nitrogen 11 mg/dL (9-20); Calcium 8.1 mg/dL (8.4-10.2); Carbon Dioxide 31 mmol/L (22-32); Chloride 102 mmol/L (98-107); Cholesterol 155 mg/dL (140-199); Estimated Glomerular Filt Rate > 60 mL/min (>60); Glucose 96 mg/dL (80-110); HDL Cholesterol 50 mg/dL (40-60); HEMOLYSIS < 15 (0-50); LDL Cholesterol Calculated 68 mg/dL (<100); Potassium 3.8 mmol/L (3.4-5.1); Sodium 140 mmol/L (137-145); Total Protein 7.1 g/dL (6.3-8.2); Triglycerides 186 mg/dL (35-150); Uric Acid 6.9 mg/dL (3.5-8.5)
== END ==
PROVIDERS: PCP Internal Medicine; Referring Provider Internal Medicine; Visit Provider Internal Medicine
DX: I71.43 Infrarenal abdominal aortic aneurysm, without rupture (principal); M1A.00X0 Idiopathic chronic gout, unspecified site, without tophus (tophi); E78.2 Mixed hyperlipidemia
CPT/HCPCS: 36415; 76775; 80053; 80061; 84550

== ENCOUNTER → 2023-10-27 11:21 | Outpatient (CLI) | payer MEDICARE, BC, SELFPAY ==
[2020-04-24 23:34] VITALS: BMI 24.5
[2023-10-27 12:36] LABS: Add Manual Diff / Slide Review NO; Basophils Absolute Auto 100 /uL (0-100); Basophils Percent Auto 1.1 % (0-2); Eosinophils Absolute Auto 0 /uL (0-450); Eosinophils Percent Auto 0.5 % (2-4); Hematocrit 43.9 % (41-53); Hemoglobin 15.4 g/dL (13.5-17.5); Lymphocytes Absolute Auto 900 /uL (1100-4500); Lymphocytes Percent Auto 16.1 % (25-40); Mean Corpuscular Hemoglobin 35.2 PG (26-34); Mean Corpuscular Volume 100.4 fL (80-100); Monocytes Absolute Auto 300 /uL (0-900); Neutrophils Absolute Auto 4400 /uL (1500-7000); Neutrophils Percent Auto 76.3 % (50-75); Platelet Count 154 X10^3/uL (150-400); Red Blood Cell Count 4.37 X10^6/uL (4.5-5.9); Red Cell Distribution Width 13.8 % (11.6-14.8); White Blood Cell Count 5.7 X10^3/uL (4.5-11.0)
[2023-10-27 13:00] LABS: HEMOLYSIS < 15 (0-50); Iron 155 ug/dL (49-181)
[2023-10-27 13:04] LABS: Alanine Aminotransferase 35 IU/L (<50); Albumin 4.4 g/dL (3.5-5.0); Albumin Globulin Ratio 1.4 (1.0-2.8); Alkaline Phosphatase 62 U/L (38-126); Aspartate Aminotransferase 59 IU/L (17-59); Bilirubin Total 1.6 mg/dL (0.2-1.3); Blood Urea Nitrogen 12 mg/dL (9-20); Calcium 8.9 mg/dL (8.4-10.2); Carbon Dioxide 25 mmol/L (22-32); Chloride 104 mmol/L (98-107); Cholesterol 172 mg/dL (140-199); Estimated Glomerular Filt Rate > 60 mL/min (>60); Ethanol (ETOH) 24 mg/dL; Globulin 3.1 g/dL (1.7-4.1); Glucose 85 mg/dL (80-110); HDL Cholesterol 89 mg/dL (40-60); HEMOLYSIS < 15 (0-50); LDL Cholesterol Calculated 58 mg/dL (<100); Potassium 3.9 mmol/L (3.4-5.1); Sodium 139 mmol/L (137-145); Total Protein 7.5 g/dL (6.3-8.2); Triglycerides 124 mg/dL (35-150); Uric Acid 6.8 mg/dL (3.5-8.5)
[2023-10-27 13:16] LABS: Percent Iron Saturation 59 % (20-50); Total Iron Binding Capacity 264 ug/dL (261-462); Transferrin 217 mg/dL (206-381)
== END ==
PROVIDERS: PCP Internal Medicine; Referring Provider Internal Medicine; Visit Provider Internal Medicine
DX: E78.5 Hyperlipidemia, unspecified (principal); M10.9 Gout, unspecified; K21.9 Gastro-esophageal reflux disease without esophagitis
CPT/HCPCS: 36415; 80053; 80061; 80320; 83540; 83550; 84550; 85025

== ENCOUNTER → 2023-11-05 11:51 | Outpatient (CLI) | payer MEDICARE, BC, SELFPAY ==
[2020-04-24 23:34] VITALS: BMI 24.5
--- NOTE | 2023-11-05 11:52 | DI.US.S_ITS ---
PROCEDURE: US ABD AORTA ANEURYSM SCREEN INDICATIONS: AAA TECHNIQUE: Real time scanning was performed of the aorta and iliac arteries, with image documentation. COMPARISON: [facility], , RETRO PERITONEAL LIMITED, 11/07/2022, 8:08. FINDINGS: Aorta: Proximal aortic diameter measures 2.5 cm, previously 2.4 cm. Mid-aorta measures 1.9 cm, previously 1.6 cm. Distal aortic diameter is 4.1 x 3.5 cm, previously 4.1 x 3.5 cm. There is mural calcification/plaque. Iliac arteries: Right common iliac artery measures 1.6 cm, previously 1.6 cm. Left common iliac artery measures 1.3 cm, previously 1.3 cm. IMPRESSION: 1. Stable infra-abdominal aortic aneurysm measuring 4.1 x 3.5 cm. Recommend follow-up in 1 year. 2. Bilateral common iliac arteries are normal in caliber, where visualized. Vascular incidental findings followup recommendations: ACR White Paper AAA imaging followup intervals: AAA defined as 3.0 cm or more luminal diameter. * 2.5-2.9 cm (ectasia): 5 year followup. * 3.0-3.4 cm: 3 year followup. * 3.5-3.9 cm: 3 year followup. * 4.0-4.4 cm: 1 year followup. * 4.5-4.9 cm: 6 month followup. Consider surgery/endovascular Rx. * 5.0-5.5 cm: 3-6 month followup. Consider surgery/endovascular Rx. Dictated by: Rohan Rowan M.D. on 11/10/2023 at 13:27 Approved by: Rohan Rowan M.D. on 11/10/2023 at 13:30
== END ==
PROVIDERS: PCP Internal Medicine; Referring Provider Internal Medicine; Visit Provider Internal Medicine
DX: I71.40 Abdominal aortic aneurysm, without rupture, unspecified (principal)
CPT/HCPCS: 76706; 76770

== ENCOUNTER 2024-03-21 17:52 | Inpatient (IN) | payer MEDICARE, BC, SELFPAY ==
[2020-04-24 23:34] VITALS: BMI 24.5
[2024-03-21] VITALS (16 sets, daily range): BP systolic 112–173; BP diastolic 64–83; PULSE 69–96; RESP 15–30; TEMP 36.6–37.1; O2SAT 95–100; BMI 23.7
[2024-03-21] MEDS: DEXTROSE 50 % IN WATER 25 GM/50 ML SYRINGE TUBE (18:07)
--- NOTE | 2024-03-21 18:23 | PC.NURSE ---
Tried getting a temp through axillary, orally, and temporal; highest temp was 96.2. Pt is very cold and clammy to the touch, placed bear hugger on the patient.
--- NOTE | 2024-03-21 18:36 | DI.CT.S_ITS ---
PROCEDURE: CT HEAD/BRAIN WO CON INDICATIONS: alt MSE TECHNIQUE: Noncontrast 4.5 mm thick angled axial sections acquired from the foramen magnum to the vertex, with coronal and sagittal reformats. For radiation dose reduction, the following was used: automated exposure control, adjustment of mA and/or kV according to patient size. COMPARISON: [facility], CT, CT HEAD/BRAIN WO CON, 05/06/2021, 18:17. FINDINGS: Image quality: Diagnostic. CSF spaces: Basal cisterns are patent. No extra-axial fluid collections. Ventricles are normal in size and shape. Brain: No midline shift. No intracranial masses or hemorrhage. Watts-white matter interface is within normal limits. Skull and face: Calvarium and visualized facial bones are intact, without suspicious lesions. Sinuses: Visualized sinuses and mastoids are clear. IMPRESSION: No acute intracranial pathology identified. Dictated by: Guillermo Berumen M.D. on 03/21/2024 at 19:33 Approved by: Guillermo Berumen M.D. on 03/21/2024 at 19:35
--- NOTE | 2024-03-21 18:44 | EKG_ITS ---
[facility] [address] [place] [address] Test Date: 2024-03-21 Pat Name: Nisha Larsen Department: [facility] Room: Gender: Male Director Product: ALICE : 1945 Requested By: Order Number: [id number] Reading MD: Yaakov Keating Measurements Intervals [place] Rate: 70 P: 56 NV: 166 QRS: 268 QRSD: 134 T: 43 QT: 452 QTc: 488 Interpretive Statements Normal sinus rhythm Right bundle branch block Electronically Signed On 03-23-2024 16:46:44 PDT by Yaakov Keating
[2024-03-21 18:48] LABS: INR 1.1 (0.9-1.3); Prothrombin Time 12.1 SECONDS (9.4-12.5)
[2024-03-21 18:51] LABS: PTT Partial Thromboplastin Tim 28 SECONDS (25.1-36.5)
[2024-03-21 18:52] LABS: Add Manual Diff / Slide Review NO; Basophils Absolute Auto 0 /uL (0-100); Basophils Percent Auto 0.6 % (0-2); Eosinophils Absolute Auto 0 /uL (0-450); Eosinophils Percent Auto 0.6 % (2-4); Hematocrit 46.1 % (41-53); Hemoglobin 15.7 g/dL (13.5-17.5); Lymphocytes Absolute Auto 1100 /uL (1100-4500); Lymphocytes Percent Auto 17.9 % (25-40); Mean Corpuscular Hemoglobin 33.6 PG (26-34); Mean Corpuscular Volume 98.7 fL (80-100); Monocytes Absolute Auto 200 /uL (0-900); Monocytes Percent Auto 3.1 % (3-14); Neutrophils Absolute Auto 4700 /uL (1500-7000); Neutrophils Percent Auto 77.8 % (50-75); Platelet Count 125 X10^3/uL (150-400); Red Blood Cell Count 4.67 X10^6/uL (4.5-5.9); Red Cell Distribution Width 13.1 % (11.6-14.8)
[2024-03-21 18:53] LABS: Ammonia (NH3) < 9 umol/L (9-30)
[2024-03-21] MEDS: LORazepam 2 MG/ML INJ 1 MG IV (18:54)
[2024-03-21 18:55] LABS: Acetaminophen < 10 ug/mL (10-30); Alanine Aminotransferase 41 IU/L (<50); Albumin 4.5 g/dL (3.5-5.0); Albumin Globulin Ratio 1.6 (1.0-2.8); Alkaline Phosphatase 69 U/L (38-126); Aspartate Aminotransferase 133 IU/L (17-59); BUN Creatinine Ratio 14.6 (6-22); Bilirubin Total 1.2 mg/dL (0.2-1.3); Blood Urea Nitrogen 12 mg/dL (9-20); Calcium 8.6 mg/dL (8.4-10.2); Carbon Dioxide 17 mmol/L (22-32); Chloride 106 mmol/L (98-107); Estimated Glomerular Filt Rate > 60 mL/min (>60); Ethanol (ETOH) 144 mg/dL; Globulin 2.9 g/dL (1.7-4.1); Glucose 169 mg/dL (80-110); Salicylate < 1.0 mg/dL (<20); Sodium 143 mmol/L (137-145); Total Protein 7.4 g/dL (6.3-8.2)
[2024-03-21 18:57] LABS: HEMOLYSIS 68 (0-50)
--- NOTE | 2024-03-21 18:57 | ED_ITS ---
HPI - Altered Mental Status General Chief Complaint: Altered Mental Status Stated Complaint: ams Time Seen by Provider: 03/21/24 18:07 Source: EMS Mode of arrival: EMS History of Present Illness HPI narrative: 78-year-old male with altered mental status, history of chronic alcohol use, also cannabis, at bedside states that he uses alcohol and cannabis for treatment of his chronic left hip pain, has severe arthritis, was advised to have replacement of his hip but he does not want to have surgery, uses alcohol and cannabis to help with pain control. Last drink of alcohol proximally 4 hours ago. He had largely been in bed through the day today, decreased mental status, called 911, on arrival to the emergency department glucose 50s noted, given IV dextrose, improved mental status, however has some tremulousness, feels like he is having some withdrawal from alcohol. He denies pain to chest, back, flanks, head, neck. No fall injury. Denies pain to upper extremities and lower extremities. He denies shaking episodes, does not believe he had any seizure activity, no injury to tongue, no incontinence of urine or stool. He denies cough and shortness of breath, denies dysuria or frequency of urination, denies nausea or vomiting, denies abdominal pain, denies diarrhea. Related Data Home Medications Medication Instructions Recorded Confirmed brimonidine 0.1 % eye drops 1 drp OPHTH DAILY #10 mL 01/21/13 03/21/24 (Alphagan P) fluticasone propionate 50 1 spray intranasal BID 03/21/24 03/21/24 mcg/actuation nasal spray,suspension Previous Rx's Medication Instructions Recorded baclofen 10 mg tablet 10 mg PO DAILY #90 tabs 10/27/23 quetiapine 50 mg tablet 50 mg PO BEDTIME #90 tabs 10/27/23 rosuvastatin 10 mg tablet 10 mg PO DAILY #90 tabs 10/27/23 nortriptyline 50 mg capsule 50 mg PO BEDTIME PRN insomnia #60 12/24/23 caps Allergies Allergy/AdvReac Type Severity Reaction Status Date / Time hydrocodone AdvReac Intermediate difficulty Verified 01/21/24 09:07 breathing? Convulsions from Lortab methocarbamol [From Robaxin] AdvReac Mild passed Verified 01/21/24 09:07 out, felt horrible Review of Systems Review of Systems Narrative: per HPI Patient History Medical History (Updated 03/21/24 @ 21:01 by Pasquale Ray MD) Bilateral inguinal hernia without obstruction or gangrene DISH (diffuse idiopathic skeletal hyperostosis) Chronic left hip pain Alcohol abuse Thoracic aortic aneurysm Sciatica Chronic back pain GERD (gastroesophageal reflux disease) (~2018) Insomnia AAA (abdominal aortic aneurysm) (~2019) Glaucoma (02/21/11) Gout (02/21/11) Hyperlipidemia (02/21/11) Arthritis Symptomatic cholelithiasis Surgical History (Updated 01/21/24 @ 09:28 by Gigi Copeland MD) Status post bilateral hernia repair (~07/2020) Anesthesia Status post lumbar surgery S/P laparoscopic cholecystectomy (~11/2018) Hx of fusion of cervical spine (09/23/05) Status post left hip replacement (~12/2012) Family History Father Bladder cancer Brother Throat cancer Grandfather Stroke Social History marital status: household members: spouse occupational status: previously employed Smoking Status: Former smoker alcohol intake: current substance use type: marijuana Smoking Status: Former smoker alcohol intake frequency: 0-2 drinks per day Alcohol type: hard liquor Substance Use Type: marijuana Exam Narrative Exam Narrative: GENERAL: Well-developed patient, in mild distress. Tremulousness noted HEAD: Atraumatic. Normocephalic. EYES: Pupils equal round and reactive. Extraocular motions intact. No scleral icterus. No injection or drainage. ENT: Nose without bleeding, purulent drainage. Throat without erythema, tonsillar hypertrophy or exudate. Airway patent. NECK: Trachea midline. Non tender CARDIOVASCULAR: Regular rate and rhythm without murmurs, gallops, or rubs. RESPIRATORY: Clear to auscultation. Breath sounds equal bilaterally. No wheezes, rales, or rhonchi. GASTROINTESTINAL: Abdomen soft, non-tender, nondistended. EXTREMITIES: No edema or joint tenderness. BACK: Nontender without deformity or crepitance. No flank tenderness. NEURO: AOx3. Looking around, conversant after dextrose dose, some slight tremor noted, motor exam nonfocal. SKIN: No rash or erythema of visible areas Initial Vital Signs Initial Vital Signs: Vital Signs Pulse Rate 69 03/21/24 17:59 Respiratory Rate 16 03/21/24 17:59 Blood Pressure 123/65 03/21/24 17:59 Pulse Oximetry 100 03/21/24 17:59 Oxygen Delivery Method Room Air 03/21/24 17:59 Course Orders Ordered: Acetaminophen (Acetaminophen 325 Mg Tablet) 650 mg PO Q6HR PRN PRN Reason: Fever/Mild Pain (1-3) Dextrose/Sodium Chloride (Dextrose 5%-0.9% Ns) 1,000 mls @ 125 mls/hr IV CONT AMBIKA Last Admin: 03/22/24 05:51 Dose: 125 mls/hr Documented By: Infusion: 03/22/24 05:27 Dose: Infused Documented By: Admin: 03/21/24 21:27 Dose: 125 mls/hr Documented By: MARBELLA Lorazepam (Lorazepam 2 Mg/Ml Inj) 1 mg IV Q4HR PRN; Protocol PRN Reason: Anxiety Last Admin: 03/21/24 18:54 Dose: 1 mg Documented By: MARBELLA Lorazepam (Lorazepam 2 Mg/Ml Inj) 1 mg IV Q4HR PRN PRN Reason: agitation, tachycardia Last Admin: 03/22/24 01:31 Dose: 1 mg Documented By: HENOK Ondansetron HCl (Ondansetron 4 Mg/2 Ml Inj) 4 mg IV Q4HR PRN PRN Reason: Nausea And Vomiting Last Admin: 03/22/24 06:58 Dose: 4 mg Documented By: HENOK Discontinued Medications Dextrose (Dextrose 50 % In Water 25 Gm/50 Ml Syringe) 25 gm TUBE NOW ONE Stop: 03/21/24 18:00 Last Admin: 03/21/24 18:07 Dose: 25 gm Documented By: Sodium Chloride (Normal Saline 0.9%) 1,000 mls @ 2,000 mls/hr IV BOLUS ONE Stop: 03/21/24 19:36 Last Infusion: 03/21/24 19:52 Dose: Infused Documented By: Admin: 03/21/24 19:28 Dose: 2,000 mls/hr Documented By: MARBELLA Ceftriaxone Sodium 1,000 mg/ (Sodium Chloride) 100 mls @ 200 mls/hr IV NOW ONE Stop: 03/21/24 20:42 Last Infusion: 03/21/24 21:54 Dose: Infused Documented By: Admin: 03/21/24 20:57 Dose: 200 mls/hr Documented By: MARBELLA Phenobarbital (Phenobarbital 65 Mg/Ml Vial) 65 mg IV NOW ONE Stop: 03/21/24 20:59 Last Admin: 03/21/24 21:27 Dose: 65 mg Documented By: MARBELLA Vital Signs Vital signs: Vital Signs - 8 hr 03/21/24 17:59 03/21/24 18:25 03/21/24 18:30 Temperature Pulse Rate 69 70 71 Respiratory Rate 16 24 23 Blood Pressure 123/65 Pulse Oximetry 100 96 Oxygen Delivery Method Room Air 03/21/24 18:30 03/21/24 19:00 03/21/24 19:00 Temperature Pulse Rate 79 Respiratory Rate 24 Blood Pressure 112/77 140/77 Pulse Oximetry Oxygen Delivery Method 03/21/24 19:19 03/21/24 19:19 03/21/24 19:30 Temperature Pulse Rate 82 81 Respiratory Rate 15 18 Blood Pressure 133/77 Pulse Oximetry 100 97 Oxygen Delivery Method 03/21/24 19:33 03/21/24 19:33 03/21/24 20:00 Temperature Pulse Rate 84 Respiratory Rate 30 H Blood Pressure 126/80 128/64 Pulse Oximetry 95 Oxygen Delivery Method 03/21/24 20:00 03/21/24 20:30 03/21/24 20:30 Temperature Pulse Rate 84 92 H Respiratory Rate 17 19 Blood Pressure 135/72 Pulse Oximetry 99 98 Oxygen Delivery Method 03/21/24 21:00 03/21/24 21:00 03/21/24 21:30 Temperature 97.8 F Pulse Rate 96 H Respiratory Rate 27 H Blood Pressure 123/74 119/72 Pulse Oximetry 98 Oxygen Delivery Method 03/21/24 21:30 03/21/24 22:00 03/21/24 22:00 Temperature Pulse Rate 91 H 93 H Respiratory Rate 21 19 Blood Pressure 134/65 Pulse Oximetry 97 96 Oxygen Delivery Method 03/21/24 22:30 03/21/24 22:30 Temperature Pulse Rate 93 H Respiratory Rate 17 Blood Pressure 135/74 Pulse Oximetry 97 Oxygen Delivery Method Room Air MDM - Altered Mental Status Lab Data Attestation: I reviewed the patient's lab results. 03/22/24 05:46 03/22/24 05:46 Labs: Lab Results 03/21/24 03/21/24 03/21/24 Range/Units 00:20 18:30 20:08 WBC 6.0 (4.5-11.0) X10^3/uL RBC 4.67 (4.5-5.9) X10^6/uL Hgb 15.7 (13.5-17.5) g/dL Hct 46.1 (41-53) % MCV 98.7 (80-100) fL MCH 33.6 (26-34) PG MCHC 34.0 (30-36) % RDW 13.1 (11.6-14.8) % Plt Count 125 L (150-400) X10^3/uL Neut % (Auto) 77.8 H (50-75) % Lymph % (Auto) 17.9 L (25-40) % [place] % (Auto) 3.1 (3-14) % Eos % (Auto) 0.6 L (2-4) % Baso % (Auto) 0.6 (0-2) % Neut # (Auto) 4700 (8730-8151) /uL Lymph # (Auto) 1100 (2994-9170) /uL [place] # (Auto) 200 (0-900) /uL Eos # (Auto) 0 (0-450) /uL Baso # (Auto) 0 (0-100) /uL PT 12.1 (9.4-12.5) SECONDS INR 1.1 (0.9-1.3) APTT 28 (25.1-36.5) SECONDS Sodium 143 (137-145) mmol/L Potassium 4.0 (3.4-5.1) mmol/L Chloride 106 (98-107) mmol/L Carbon Dioxide 17 L (22-32) mmol/L BUN 12 (9-20) mg/dL Creatinine 0.82 (0.66-1.25) mg/dL Estimated GFR > 60 (>60) mL/min BUN/Creatinine Ratio 14.6 (6-22) Glucose 169 H (80-110) mg/dL Lactate 6.7 H* (0.7-2.1) mmol/L Calcium 8.6 (8.4-10.2) mg/dL Total Bilirubin 1.2 (0.2-1.3) mg/dL AST 133 H (17-59) IU/L ALT 41 (<50) IU/L Alkaline Phosphatase 69 (38-126) U/L Ammonia < 9 L (9-30) umol/L Total Protein 7.4 (6.3-8.2) g/dL Albumin 4.5 (3.5-5.0) g/dL Globulin 2.9 (1.7-4.1) g/dL Albumin/Globulin Ratio 1.6 (1.0-2.8) TSH 0.622 (0.47-4.68) uIU/mL Prolactin 64.6 H (3.7-17.9) ng/mL Urine Color Urine Appearance Urine pH (4.5-8.0) Ur Specific [place] (1.000-1.035) Urine Protein (Negative) Urine Glucose (UA) (Negative) g/dL Urine Ketones (NEGATIVE) Urine Occult Blood (Negative) Urine Nitrate (Negative) Urine Bilirubin (NEGATIVE) Urine Urobilinogen (0.2) E.U./dL Ur Leukocyte Esterase (NEGATIVE) Urine RBC (0-5/HPF) Urine WBC (0-5/HPF) Ur Squamous Epith Cells (0-5/HPF) Urine Bacteria (None) Hyaline Casts (None) Urine Mucus (Negative) Ur Culture Indicated? Vol Urine Centrifuged Nasal Screen MRSA (PCR) Not detected (Not Detect) Salicylates < 1.0 (<20) mg/dL U Opiates 300ng/mL cut (Negative) Ur Oxycodone Screen (Negative) Urine Methadone Screen (Negative) Acetaminophen < 10 (10-30) ug/mL Ur Barbiturates Screen (Negative) U Tricyclic Antidepress (Negative) Ur Phencyclidine Scrn (Negative) Ur Amphetamines Screen (Negative) U Methamphetamines Scrn (Negative) Ur MDMA Scrn (Ecstasy) (Negative) U Benzodiazepines Scrn (Negative) Urine Cocaine Screen (Negative) U Marijuana (THC) Screen (Negative) Urine Specific [place] (Normal) Ethyl Alcohol 144 H ( - 10) mg/dL Ketones (<0.27) mmol/L Ur Creatinine (Normal) Chlamy pneumoniae PCR Not detected (Not Detect) Adenovirus (PCR) Not detected (Not Detect) B.parapertussis DNA PCR Not detected (Not Detecte) Coronavirus OC43 (PCR) Not detected (Not Detect) Coronavirus HKU1 (PCR) Not detected (Not Detect) Coronavirus 229E (PCR) Not detected (Not Detect) SARS-CoV-2 (PCR) Not detected (Not Detecte) Coronavirus NL63 (PCR) Not detected (Not Detect) Human Metapneumovir PCR Not detected (Not Detect) Influenza Type A (PCR) Not detected (Not Detect) Influenza Type B (PCR) Not detected (Not Detect) M. pneumoniae (PCR) Not detected (Not Detect) Parainfluenza 1 (PCR) Not detected (Not Detect) Parainfluenza 2 (PCR) Not detected (Not Detect) Parainfluenza 3 (PCR) Not detected (Not Detect) Parainfluenza 4 (PCR) Not detected (Not Detect) RSV (PCR) Not detected (Not Detect) Entero/Rhino (PCR) Not detected (Not Detect) 03/21/24 03/21/24 03/21/24 Range/Units 20:10 21:54 21:54 WBC (4.5-11.0) X10^3/uL RBC (4.5-5.9) X10^6/uL Hgb (13.5-17.5) g/dL Hct (41-53) % MCV (80-100) fL MCH (26-34) PG MCHC (30-36) % RDW (11.6-14.8) % Plt Count (150-400) X10^3/uL Neut % (Auto) (50-75) % Lymph % (Auto) (25-40) % [place] % (Auto) (3-14) % Eos % (Auto) (2-4) % Baso % (Auto) (0-2) % Neut # (Auto) (2235-0138) /uL Lymph # (Auto) (4778-8713) /uL [place] # (Auto) (0-900) /uL Eos # (Auto) (0-450) /uL Baso # (Auto) (0-100) /uL PT (9.4-12.5) SECONDS INR (0.9-1.3) APTT (25.1-36.5) SECONDS Sodium (137-145) mmol/L Potassium (3.4-5.1) mmol/L Chloride (98-107) mmol/L Carbon Dioxide (22-32) mmol/L BUN (9-20) mg/dL Creatinine (0.66-1.25) mg/dL Estimated GFR (>60) mL/min BUN/Creatinine Ratio (6-22) Glucose (80-110) mg/dL Lactate 6.5 H* (0.7-2.1) mmol/L Calcium (8.4-10.2) mg/dL Total Bilirubin (0.2-1.3) mg/dL AST (17-59) IU/L ALT (<50) IU/L Alkaline Phosphatase (38-126) U/L Ammonia (9-30) umol/L Total Protein (6.3-8.2) g/dL Albumin (3.5-5.0) g/dL Globulin (1.7-4.1) g/dL Albumin/Globulin Ratio (1.0-2.8) TSH (0.47-4.68) uIU/mL Prolactin (3.7-17.9) ng/mL Urine Color Yellow Urine Appearance Clear Urine pH 5.5 Normal (4.5-8.0) Ur Specific [place] >=1.030 H (1.000-1.035) Urine Protein Negative (Negative) Urine Glucose (UA) Negative (Negative) g/dL Urine Ketones 2+ H (NEGATIVE) Urine Occult Blood Trace-intact (Negative) Urine Nitrate Negative (Negative) Urine Bilirubin Negative (NEGATIVE) Urine Urobilinogen 0.2 (0.2) E.U./dL Ur Leukocyte Esterase Negative (NEGATIVE) Urine RBC 0-1/hpf (0-5/HPF) Urine WBC 0-1/hpf (0-5/HPF) Ur Squamous Epith Cells 0-1 /hpf (0-5/HPF) Urine Bacteria None seen (None) Hyaline Casts 5-10/lpf (None) Urine Mucus 2+ H (Negative) Ur Culture Indicated? Cult not indicated Vol Urine Centrifuged 10ml (spun) Nasal Screen MRSA (PCR) (Not Detect) Salicylates (<20) mg/dL U Opiates 300ng/mL cut Negative (Negative) Ur Oxycodone Screen Negative (Negative) Urine Methadone Screen Negative (Negative) Acetaminophen (10-30) ug/mL Ur Barbiturates Screen Negative (Negative) U Tricyclic Antidepress Negative (Negative) Ur Phencyclidine Scrn Negative (Negative) Ur Amphetamines Screen Negative (Negative) U Methamphetamines Scrn Negative (Negative) Ur MDMA Scrn (Ecstasy) Negative (Negative) U Benzodiazepines Scrn Negative (Negative) Urine Cocaine Screen Negative (Negative) U Marijuana (THC) Screen Positive H (Negative) Urine Specific [place] Normal (Normal) Ethyl Alcohol ( - 10) mg/dL Ketones 2.33 H (<0.27) mmol/L Ur Creatinine Normal (Normal) Chlamy pneumoniae PCR (Not Detect) Adenovirus (PCR) (Not Detect) B.parapertussis DNA PCR (Not Detecte) Coronavirus OC43 (PCR) (Not Detect) Coronavirus HKU1 (PCR) (Not Detect) Coronavirus 229E (PCR) (Not Detect) SARS-CoV-2 (PCR) (Not Detecte) Coronavirus NL63 (PCR) (Not Detect) Human Metapneumovir PCR (Not Detect) Influenza Type A (PCR) (Not Detect) Influenza Type B (PCR) (Not Detect) M. pneumoniae (PCR) (Not Detect) Parainfluenza 1 (PCR) (Not Detect) Parainfluenza 2 (PCR) (Not Detect) Parainfluenza 3 (PCR) (Not Detect) Parainfluenza 4 (PCR) (Not Detect) RSV (PCR) (Not Detect) Entero/Rhino (PCR) (Not Detect) Point of Care Testing Glucose POC [address] scan - head: Radiologist's Impression: [place] [address] CT Scan Report Signed Patient: Nisha Larsen MR#: [id number] : 1945 Acct:[id number] Age/Sex: 78 / M Date of Service: 03/21/24 Loc: ED Accession Number: [id number] Procedure: CT head/brain wo con Ordering Provider: Pasquale Ray MD PROCEDURE: CT HEAD/BRAIN WO CON INDICATIONS: alt MSE TECHNIQUE: Noncontrast 4.5 mm thick angled axial sections acquired from the foramen magnum to the vertex, with coronal and sagittal reformats. For radiation dose reduction, the following was used: automated exposure control, adjustment of mA and/or kV according to patient size. COMPARISON: [facility], CT, CT HEAD/BRAIN WO CON, 05/06/2021, 18:17. FINDINGS: Image quality: Diagnostic. CSF spaces: Basal cisterns are patent. No extra-axial fluid collections. Ventricles are normal in size and shape. Brain: No midline shift. No intracranial masses or hemorrhage. Watts-white matter interface is within normal limits. Skull and face: Calvarium and visualized facial bones are intact, without suspicious lesions. Sinuses: Visualized sinuses and mastoids are clear. IMPRESSION: No acute intracranial pathology identified. Dictated by: Guillermo Berumen M.D. on 03/21/2024 at 19:33 Approved by: Guillermo Berumen M.D. on 03/21/2024 at 19:35 ECG Data Attestation: I personally reviewed and interpreted this ECG as follows: Interpretation: Normal sinus rhythm with rate of 70, no obvious ST segment elevation or depression changes. Right bundle-branch block pattern noted. AR 166, QRS 134, QTC 488. MDM Narrative Medical decision making narrative: 78-year-old male with chronic pain, uses alcohol and cannabis for his analgesic regimen, last drink 4 hours ago, altered mental status noticed at home by , on arrival to ED by EMS found to have glucose 49, given IV D50 amp, repeat glucose 150s and improved mental status. No to have some tremulousness, feels like he is having some withdrawal symptoms from alcohol, as he has had in the past, no witnessed seizure activity, no incontinence. Labs pending. CT head noncontrast study had been requested. IV Ativan. CT head no acute changes. IV fluids given for lactate 6.7, on repeat still elevated 6.2. Blood cultures requested. IV ceftriaxone empirically given. Chest x-ray pending. Patient still tremulous, elevated CIWA score, IV phenobarbital. Consider ICU admission. We will contact hospitalist. Case discussed with hospitalist Dr. Garcia, who accepted patient for admission, however then it was discovered that patient has PCP Dinorah, case discussed with on-call Dr. Montiel, accepts patient for admission to inpatient Critical Care Time Critical Care Time Critical Care Time: Yes Total Critical Care Time: 35 Attestation: The high probability of a clinically significant, sudden or life threatening deterioration of the [cerebrovascular, neuro, cardiovascular] system(s) required my full and direct attention, intervention and personal management. The aggregate critical care time was [35] minutes. This time is in addition to time spent performing reported procedures but includes the following: [x] Data Review and interpretation [x] Patient assessment and monitoring of vital signs [x] Documentation [x] Medication orders and management Discharge Plan Departure Patient Disposition: Admitted As Inpatient Clinical Impression: Hypoglycemia, History of alcohol abuse, Alcohol withdrawal Admit Date/Time: 03/21/24 23:00 Admit Provider: Sherlyn Montiel
[2024-03-21 19:07] LABS: Lactate (Lactic Acid) 6.7 mmol/L (0.7-2.1)
[2024-03-21 19:11] LABS: Prolactin 64.6 ng/mL (3.7-17.9)
[2024-03-21] MEDS: SODIUM CHLORIDE 0.9% 1,000 ML 2000 ML IV (19:28)
[2024-03-21 19:53] LABS: Thyroid Stimulating Hormone 0.622 uIU/mL (0.47-4.68)
--- NOTE | 2024-03-21 19:54 | DI.RAD.S_ITS ---
PROCEDURE: XR CHEST 1V INDICATIONS: eval for sepsis TECHNIQUE: One view of the chest was acquired. COMPARISON: [facility], CR, XR CHEST 2V, 05/06/2021, 18:11. FINDINGS: Surgical changes and devices: Partially imaged hardware from cervical spinal fusion. Lungs and pleura: Lungs are clear. No pleural effusions or pneumothorax. Mediastinum: Mediastinal contours appear normal. Heart size is normal. Bones and chest wall: No suspicious bony lesions. Overlying soft tissues appear unremarkable. IMPRESSION: No acute cardiopulmonary abnormality is seen. No focal consolidation. Dictated by: Bernardino Dee M.D. on 03/21/2024 at 21:00 Approved by: Bernardino Dee M.D. on 03/21/2024 at 21:01
[2024-03-21 20:13] LABS: Reflexed Lactate in 2 Hours Y
[2024-03-21 20:40] LABS: Lactate 2HR (Lactic Acid Rflx) 6.5 mmol/L (0.7-2.1)
[2024-03-21] MEDS: cefTRIAXone 1,000 MG in SODIUM CHLORIDE 0.9% 100 ML 200 MG IV (20:57)
[2024-03-21 21:07] LABS: Ketones (Beta-Hydroxybutyrate) 2.33 mmol/L (<0.27)
[2024-03-21] MEDS: DEXTROSE 5%-0.9% NS 1,000 ML 125 ML IV (21:27)
[2024-03-21] MEDS: PHENobarbital 65 MG/ML VIAL IV (21:27)
[2024-03-21 22:00] LABS: Adenovirus Not Detected (Not Detect); B. parapertussis Not Detected (Not Detecte); Bordetella pertussis Not Detected (Not Detect); Chlamydophila pneumoniae Not Detected (Not Detect); Coronavirus 229E Not Detected (Not Detect); Coronavirus HKU1 Not Detected (Not Detect); Coronavirus NL 63 Not Detected (Not Detect); Coronavirus OC43 Not Detected (Not Detect); Human Metapneumovirus Not Detected (Not Detect); Human Rhinovirus/Enterovirus Not Detected (Not Detect); Influenza A Not Detected (Not Detect); Influenza B Not Detected (Not Detect); Mycoplasma pneumoniae Not Detected (Not Detect); Parainfluenza Virus 1 Not Detected (Not Detect); Parainfluenza Virus 2 Not Detected (Not Detect); Parainfluenza Virus 3 Not Detected (Not Detect); Parainfluenza Virus 4 Not Detected (Not Detect); Respiratory Syncytial Virus Not Detected (Not Detect); SARS- CoV-2 Not Detected (Not Detecte)
[2024-03-21 22:00] LABS: Ur Creatinine Normal (Normal); Ur Specific Gravity Normal (Normal); Urine pH Normal (Normal)
[2024-03-21 22:01] LABS: Urine Amphetamines Negative (Negative); Urine Barbiturates Negative (Negative); Urine Benzodiazepines Negative (Negative); Urine Cocaine Negative (Negative); Urine MDMA Negative (Negative); Urine Methadone Negative (Negative); Urine Methamphetamines Negative (Negative); Urine Opiates Negative (Negative); Urine Oxycodone Negative (Negative); Urine Phencyclidine Negative (Negative); Urine THC Positive (Negative); Urine Tricyclic Antidepressant Negative (Negative)
[2024-03-21 22:02] LABS: Appearance Urine UA CLEAR; Bilirubin Urine UA NEGATIVE (NEGATIVE); Color Urine UA YELLOW; Glucose Urine UA NEGATIVE (Negative); Ketones Urine UA 2+ (NEGATIVE); Leukocyte Esterase Urine UA NEGATIVE (NEGATIVE); Nitrite Urine UA NEGATIVE (Negative); Occult Blood Urine UA TRACE-INTACT (Negative); Protein Urine UA NEGATIVE (Negative); Specific Gravity Urine UA >=1.030 (1.000-1.035); Urobilinogen Urine UA 0.2 E.U./dL (0.2); pH Urine UA 5.5 (4.5-8.0)
[2024-03-21 22:09] LABS: Bacteria Urine None Seen; Culture Indicated Urine Cult Not Indicated; Hyaline Casts Urine 5-10/LPF; Mucus Urine 2+ (Negative); RBC Urine 0-1/HPF (0-5/HPF); Squamous Epithelial Cell Urine 0-1 /HPF (0-5/HPF); Urine Volume 10mL (spun); WBC Urine 0-1/HPF (0-5/HPF)
[2024-03-22] VITALS (23 sets, daily range): BP systolic 113–182; BP diastolic 56–85; PULSE 80–111; RESP 16–33; TEMP 36.6; O2SAT 96–99; BMI 23.7
[2024-03-22] MEDS: LORazepam 2 MG/ML INJ 1 MG IV (01:31)
[2024-03-22 01:51] LABS: MRSA (Nasal) PCR NOT DETECTED (Not Detect)
[2024-03-22] MEDS: DEXTROSE 5%-0.9% NS 1,000 ML 125 ML IV (05:51)
[2024-03-22 06:14] LABS: Add Manual Diff / Slide Review NO; Basophils Absolute Auto 100 /uL (0-100); Basophils Percent Auto 1.1 % (0-2); Eosinophils Absolute Auto 0 /uL (0-450); Eosinophils Percent Auto 0.5 % (2-4); Hematocrit 38.3 % (41-53); Hemoglobin 13.4 g/dL (13.5-17.5); Lymphocytes Absolute Auto 800 /uL (1100-4500); Lymphocytes Percent Auto 14.6 % (25-40); Mean Corpuscular Hemoglobin 33.7 PG (26-34); Mean Corpuscular Volume 96.4 fL (80-100); Monocytes Absolute Auto 500 /uL (0-900); Monocytes Percent Auto 9.1 % (3-14); Neutrophils Absolute Auto 4300 /uL (1500-7000); Neutrophils Percent Auto 74.7 % (50-75); Platelet Count 129 X10^3/uL (150-400); Red Blood Cell Count 3.97 X10^6/uL (4.5-5.9); Red Cell Distribution Width 12.7 % (11.6-14.8); White Blood Cell Count 5.8 X10^3/uL (4.5-11.0)
[2024-03-22 06:28] LABS: Alanine Aminotransferase 39 IU/L (<50); Albumin 3.5 g/dL (3.5-5.0); Albumin Globulin Ratio 1.3 (1.0-2.8); Alkaline Phosphatase 49 U/L (38-126); Aspartate Aminotransferase 88 IU/L (17-59); BUN Creatinine Ratio 16.4 (6-22); Bilirubin Total 0.9 mg/dL (0.2-1.3); Blood Urea Nitrogen 10 mg/dL (9-20); Calcium 7.7 mg/dL (8.4-10.2); Carbon Dioxide 26 mmol/L (22-32); Chloride 105 mmol/L (98-107); Estimated Glomerular Filt Rate > 60 mL/min (>60); Globulin 2.8 g/dL (1.7-4.1); Glucose 188 mg/dL (80-110); HEMOLYSIS < 15 (0-50); Potassium 3.4 mmol/L (3.4-5.1); Sodium 135 mmol/L (137-145); Total Protein 6.3 g/dL (6.3-8.2)
[2024-03-22] MEDS: ONDANSETRON 4 MG/2 ML INJ IV (06:58)
--- NOTE | 2024-03-22 07:35 | PC.NURSE ---
pt was admitted to room 230 at 0002 this morning; he has been alert and oriented since arrival to unit; he has not displayed any signs of ETOH withdrawal this shift, although he did request something to help him rest and he was medicated w/ ativan 1mg iv to good effect; he had one episode of nausea this morning that he reported was caused by the bone spur in his neck; he says he has these episodes at home and has a swallow study scheduled on an outpt basis
[2024-03-22] MEDS: THIAMINE 100 MG TABLET PO (08:43)
[2024-03-22] MEDS: ATORVASTATIN 20 MG TABLET PO (08:43)
[2024-03-22] MEDS: FOLIC ACID 1 MG TABLET PO (08:43)
[2024-03-22] MEDS: HYDROCODONE/ACET 5/325 TABLET 1 TAB PO (08:43)
[2024-03-22] MEDS: MULTIVITAMIN 1 TABLET 1 TAB PO (08:43)
[2024-03-22 08:49] LABS: Lactate (Lactic Acid) 1.8 mmol/L (0.7-2.1)
[2024-03-22] MEDS: POTASSIUM CHLORIDE 20 MEQ TAB 40 MEQ PO (09:18)
--- NOTE | 2024-03-22 10:13 | PM.HP.1 ---
History of Present Illness History of Present Illness Date Patient Seen: 03/22/24 Time Patient Seen: 07:45 Chief complaint: ams Narrative: 78-year-old male patient of Dr. Starr with a past medical history dish chronic left hip pain alcohol abuse thoracic aortic aneurysm GERD insomnia hyperlipidemia arthritis was brought in because of altered mental status. Patient struggles with chronic hip pain. He has had his right hip replaced and having his left hip pain becoming more problematic for him. He is walking now with a cane and has noticed decreased mobility. 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 He needs continued with this. In addition to the vodka which she helps with his hip pain he also takes marijuana. He says generally does not have any problems. But last night he had altered level of consciousness and was confused who worked as a nurse was concerned and he was brought in and evaluated in the emergency department. About 4 hours before the emergency department his noticed that he had been in bed more often and decrease the change in mental status. His called 911. During the evaluation patient was noted to have a blood sugar in the 50s and he was given IV dextrose. Patient had improvement of his mental status. Patient states he does not typically eat after about noon during the day. He was noticed to have some tremors and there was concerns that maybe he was having alcohol withdrawal. Although his alcohol level was 126. He had additional blood work done in the emergency room and laboratory tests. His blood pressure and vital signs were stable. His oxygen saturation was normal. Had normal white blood cell count normal kidney function mildly low platelets mildly low sodium had normal liver function tests ammonia level was less than 9. AST was elevated at 133 in his lactate was significantly elevated at 6.7. Urine culture showed no signs of infection urine toxicology showed positive for THC and alcohol level was 144. His PCR for infection was negative. CT scan of his head showed no acute intracranial pathology and chest x-ray was normal.. During the imaged since he department he was given IV fluids IV dextrose and laboratory testing and had improvement of his blood sugar and mental status he admitted to the hospital for further evaluation overnight he slept well. Patient is mentating normal this morning his is at his bedside. She says he is back to baseline. Their concern is maybe some ongoing moderate depression which she says has been going on for the last 6 months or so contributes this to increasing pain. And concerns about his chronic left hip pain and he is considering potentially doing surgery at this point because it is affecting his mobility. [facility], LAT[facility] Medical History (Updated 03/21/24 @ 21:01 by Pasquale Ray MD) Bilateral inguinal hernia without obstruction or gangrene DISH (diffuse idiopathic skeletal hyperostosis) Chronic left hip pain Alcohol abuse Thoracic aortic aneurysm Sciatica Chronic back pain GERD (gastroesophageal reflux disease) (~2018) Insomnia AAA (abdominal aortic aneurysm) (~2018) Glaucoma (02/21/11) Gout (02/21/11) Hyperlipidemia (02/21/11) Arthritis Symptomatic cholelithiasis Surgical History (Updated 01/21/24 @ 09:28 by Gigi Copeland MD) Status post bilateral hernia repair (~07/2020) Anesthesia Status post lumbar surgery S/P laparoscopic cholecystectomy (~11/2018) Hx of fusion of cervical spine (09/23/05) Status post left hip replacement (~12/2012) Family History Father Bladder cancer Brother Throat cancer Grandfather Stroke Social History marital status: household members: spouse occupational status: previously employed Smoking Status: Former smoker alcohol intake: current substance use type: marijuana Meds Home Medications and Allergies Home Medications Medication Instructions Recorded Confirmed Type brimonidine 0.1 % eye drops 1 drp OPHTH DAILY #10 mL 01/21/13 03/21/24 History (Alphagan P) baclofen 10 mg tablet 10 mg PO DAILY #90 tabs 10/27/23 03/21/24 Rx quetiapine 50 mg tablet 50 mg PO BEDTIME #90 tabs 10/27/23 03/21/24 Rx rosuvastatin 10 mg tablet 10 mg PO DAILY #90 tabs 10/27/23 03/21/24 Rx nortriptyline 50 mg capsule 50 mg PO BEDTIME PRN insomnia #60 12/24/23 03/21/24 Rx caps fluticasone propionate 50 1 spray intranasal BID 03/21/24 03/21/24 History mcg/actuation nasal spray,suspension Allergies Allergy/AdvReac Type Severity Reaction Status Date / Time hydrocodone AdvReac Intermediate difficulty Verified 01/21/24 09:07 breathing? Convulsions from Lortab methocarbamol [From Robaxin] AdvReac Mild passed Verified 01/21/24 09:07 out, felt horrible Exam Vital Signs (past 8 hours): - 03/22/24 02:30 03/22/24 03:00 03/22/24 03:30 Pulse Rate 88 93 H 92 H Respiratory Rate 20 21 18 Blood Pressure Pulse Oximetry 96 96 Oxygen Delivery Method 03/22/24 04:00 03/22/24 04:30 03/22/24 04:35 Pulse Rate 89 86 Respiratory Rate 20 18 Blood Pressure 113/56 L 113/56 L Pulse Oximetry Oxygen Delivery Method 03/22/24 04:35 03/22/24 05:00 03/22/24 05:00 Pulse Rate 86 88 Respiratory Rate 18 19 Blood Pressure 113/58 L Pulse Oximetry Oxygen Delivery Method 03/22/24 05:30 03/22/24 06:00 03/22/24 06:00 Pulse Rate 86 86 Respiratory Rate 18 25 H Blood Pressure 129/67 Pulse Oximetry Oxygen Delivery Method 03/22/24 06:30 03/22/24 07:00 03/22/24 07:00 Pulse Rate 85 93 H Respiratory Rate 17 33 H Blood Pressure Pulse Oximetry Oxygen Delivery Method Room Air 03/22/24 07:30 03/22/24 08:00 03/22/24 08:30 Pulse Rate 88 89 111 H Respiratory Rate 21 22 32 H Blood Pressure Pulse Oximetry Oxygen Delivery Method 03/22/24 09:00 03/22/24 09:30 03/22/24 10:00 Pulse Rate 80 99 H 92 H Respiratory Rate 22 30 H 24 Blood Pressure Pulse Oximetry Oxygen Delivery Method Oxygen Delivery Method Room Air Oxygen Flow Rate 0 Narrative Exam Narrative: Gen.: Alert oriented to person place and time HEENT: Pupils equal round and reactive or mucosa is moist neck is supple Cardio: S1-S2 regular rate and rhythm no murmurs appreciated. Respiratory: Lungs are clear to auscultation no wheezes or crackles normal respiratory effort. Abdomen: Soft nontender no rebound or guarding no liver spleen enlargement no appreciable hernias Extremities: Full range of motion no appreciable weakness no cyanosis or edema. Neurologic: No focal deficits Objective Labs 03/22/24 05:46 03/22/24 05:46 Labs: Laboratory Results - last 24 hr 03/21/24 03/21/24 03/21/24 00:20 18:30 20:08 WBC 6.0 RBC 4.67 Hgb 15.7 Hct 46.1 MCV 98.7 MCH 33.6 MCHC 34.0 RDW 13.1 Plt Count 125 L Neut % (Auto) 77.8 H Lymph % (Auto) 17.9 L Fajardo % (Auto) 3.1 Eos % (Auto) 0.6 L Baso % (Auto) 0.6 Neut # (Auto) 4700 Lymph # (Auto) 1100 Fajardo # (Auto) 200 Eos # (Auto) 0 Baso # (Auto) 0 PT 12.1 INR 1.1 APTT 28 Sodium 143 Potassium 4.0 Chloride 106 Carbon Dioxide 17 L BUN 12 Creatinine 0.82 Estimated GFR > 60 BUN/Creatinine Ratio 14.6 Glucose 169 H Lactate 6.7 H* Calcium 8.6 Total Bilirubin 1.2 AST 133 H ALT 41 Alkaline Phosphatase 69 Ammonia < 9 L Total Protein 7.4 Albumin 4.5 Globulin 2.9 Albumin/Globulin Ratio 1.6 TSH 0.622 Prolactin 64.6 H Urine Color Urine Appearance Urine pH Ur Specific Bet[place] Urine Protein Urine Glucose (UA) Urine Ketones Urine Occult Blood Urine Nitrate Urine Bilirubin Urine Urobilinogen Ur Leukocyte Esterase Urine RBC Urine WBC Ur Squamous Epith Cells Urine Bacteria Hyaline Casts Urine Mucus Ur Culture Indicated? Vol Urine Centrifuged Nasal Screen MRSA (PCR) Not detected Salicylates < 1.0 U Opiates 300ng/mL cut Ur Oxycodone Screen Urine Methadone Screen Acetaminophen < 10 Ur Barbiturates Screen U Tricyclic Antidepress Ur Phencyclidine Scrn Ur Amphetamines Screen U Methamphetamines Scrn Ur MDMA Scrn (Ecstasy) U Benzodiazepines Scrn Urine Cocaine Screen U Marijuana (THC) Screen Urine Specific [place] Ethyl Alcohol 144 H Ketones Ur Creatinine Chlamy pneumoniae PCR Not detected Adenovirus (PCR) Not detected B.parapertussis DNA PCR Not detected Coronavirus OC43 (PCR) Not detected Coronavirus HKU1 (PCR) Not detected Coronavirus 229E (PCR) Not detected SARS-CoV-2 (PCR) Not detected Coronavirus NL63 (PCR) Not detected Human Metapneumovir PCR Not detected Influenza Type A (PCR) Not detected Influenza Type B (PCR) Not detected M. pneumoniae (PCR) Not detected Parainfluenza 1 (PCR) Not detected Parainfluenza 2 (PCR) Not detected Parainfluenza 3 (PCR) Not detected Parainfluenza 4 (PCR) Not detected RSV (PCR) Not detected Entero/Rhino (PCR) Not detected 03/21/24 03/21/24 03/21/24 20:10 21:54 21:54 WBC RBC Hgb Hct MCV MCH MCHC RDW Plt Count Neut % (Auto) Lymph % (Auto) Fajardo % (Auto) Eos % (Auto) Baso % (Auto) Neut # (Auto) Lymph # (Auto) Fajardo # (Auto) Eos # (Auto) Baso # (Auto) PT INR APTT Sodium Potassium Chloride Carbon Dioxide BUN Creatinine Estimated GFR BUN/Creatinine Ratio Glucose Lactate 6.5 H* Calcium Total Bilirubin AST ALT Alkaline Phosphatase Ammonia Total Protein Albumin Globulin Albumin/Globulin Ratio TSH Prolactin Urine Color Yellow Urine Appearance Clear Urine pH 5.5 Normal Ur Specific Bethel >=1.030 H Urine Protein Negative Urine Glucose (UA) Negative Urine Ketones 2+ H Urine Occult Blood Trace-intact Urine Nitrate Negative Urine Bilirubin Negative Urine Urobilinogen 0.2 Ur Leukocyte Esterase Negative Urine RBC 0-1/hpf Urine WBC 0-1/hpf Ur Squamous Epith Cells 0-1 /hpf Urine Bacteria None seen Hyaline Casts 5-10/lpf Urine Mucus 2+ H Ur Culture Indicated? Cult not indicated Vol Urine Centrifuged 10ml (spun) Nasal Screen MRSA (PCR) Salicylates U Opiates 300ng/mL cut Negative Ur Oxycodone Screen Negative Urine Methadone Screen Negative Acetaminophen Ur Barbiturates Screen Negative U Tricyclic Antidepress Negative Ur Phencyclidine Scrn Negative Ur Amphetamines Screen Negative U Methamphetamines Scrn Negative Ur MDMA Scrn (Ecstasy) Negative U Benzodiazepines Scrn Negative Urine Cocaine Screen Negative U Marijuana (THC) Screen Positive H Urine Specific Bethel Normal Ethyl Alcohol Ketones 2.33 H Ur Creatinine Normal Chlamy pneumoniae PCR Adenovirus (PCR) B.parapertussis DNA PCR Coronavirus OC43 (PCR) Coronavirus HKU1 (PCR) Coronavirus 229E (PCR) SARS-CoV-2 (PCR) Coronavirus NL63 (PCR) Human Metapneumovir PCR Influenza Type A (PCR) Influenza Type B (PCR) M. pneumoniae (PCR) Parainfluenza 1 (PCR) Parainfluenza 2 (PCR) Parainfluenza 3 (PCR) Parainfluenza 4 (PCR) RSV (PCR) Entero/Rhino (PCR) 03/22/24 03/22/24 05:46 08:16 WBC 5.8 RBC 3.97 L Hgb 13.4 L Hct 38.3 L MCV 96.4 MCH 33.7 MCHC 35.0 RDW 12.7 Plt Count 129 L Neut % (Auto) 74.7 Lymph % (Auto) 14.6 L Fajardo % (Auto) 9.1 Eos % (Auto) 0.5 L Baso % (Auto) 1.1 Neut # (Auto) 4300 Lymph # (Auto) 800 L Fajardo # (Auto) 500 Eos # (Auto) 0 Baso # (Auto) 100 PT INR APTT Sodium 135 L Potassium 3.4 Chloride 105 Carbon Dioxide 26 BUN 10 Creatinine 0.61 L Estimated GFR > 60 BUN/Creatinine Ratio 16.4 Glucose 188 H Lactate 1.8 Calcium 7.7 L Total Bilirubin 0.9 AST 88 H ALT 39 Alkaline Phosphatase 49 Ammonia Total Protein 6.3 Albumin 3.5 Globulin 2.8 Albumin/Globulin Ratio 1.3 TSH Prolactin Urine Color Urine Appearance Urine pH Ur Specific Bet[place] Urine Protein Urine Glucose (UA) Urine Ketones Urine Occult Blood Urine Nitrate Urine Bilirubin Urine Urobilinogen Ur Leukocyte Esterase Urine RBC Urine WBC Ur Squamous Epith Cells Urine Bacteria Hyaline Casts Urine Mucus Ur Culture Indicated? Vol Urine Centrifuged Nasal Screen MRSA (PCR) Salicylates U Opiates 300ng/mL cut Ur Oxycodone Screen Urine Methadone Screen Acetaminophen Ur Barbiturates Screen U Tricyclic Antidepress Ur Phencyclidine Scrn Ur Amphetamines Screen U Methamphetamines Scrn Ur MDMA Scrn (Ecstasy) U Benzodiazepines Scrn Urine Cocaine Screen U Marijuana (THC) Screen Urine Specific [place] Ethyl Alcohol Ketones Ur Creatinine Chlamy pneumoniae PCR Adenovirus (PCR) B.parapertussis DNA PCR Coronavirus OC43 (PCR) Coronavirus HKU1 (PCR) Coronavirus 229E (PCR) SARS-CoV-2 (PCR) Coronavirus NL63 (PCR) Human Metapneumovir PCR Influenza Type A (PCR) Influenza Type B (PCR) M. pneumoniae (PCR) Parainfluenza 1 (PCR) Parainfluenza 2 (PCR) Parainfluenza 3 (PCR) Parainfluenza 4 (PCR) RSV (PCR) Entero/Rhino (PCR) Assessment & Plan Assessment and plan (1) Alcohol withdrawal: Status: Acute (2) Hypoglycemia: Status: Acute Plan Hypoglycemia. Patient with hypoglycemic event with decreased mental status and mental status changes yesterday. Patient admits to not eating after noon each day. Combination with alcohol and THC this may have contributed to his mental status changes. Since being giving dextrose and eating well his mental status has returned back to baseline mental status CT scan of his head is negative. Lactic acidosis. Patient with significant elevation of his lactate on admission to the hospital. Unsure of specific cause of this hypoglycemia alcohol use. Ketone level was normal. His lactic acid this morning is completely normal. Do not appreciate any infectious etiology. [facility] with chronic arthritis and right hip severe arthritis. Patient using alcohol and THC to control his hip pain. And his discussed knee would consider potential orthopedic interventions he has previously had his right replaced in they do tell me that they would consider surgery. He previously had left hip arthroplasty done and that is normal on previous x-rays. He has severe right hip osteoarthritis. They will follow-up with orthopedic and Dr. Copeland as an outpatient. Alcohol misuse disorder. Patient with continuous use of alcohol. No signs of current withdrawal at this time. His alcohol level on admission was 144. Discussed the importance of limiting alcohol consumption there were of that and said that they will continue to work on this. No signs of acute withdrawal this point. Depression insomnia. Patient with depression and insomnia. Uses quetiapine at baseline and night to help sleep. May benefit from antidepressant which he admits he is struggles with depression. Will start sertraline 50 mg a day. This will be sent to his pharmacy and can follow up with Dr. Copeland. Hyperlipidemia. Patient will continue on his statin medication. On my evaluation patient is stable chronically with hip pain. His hypoglycemia and mental status and lactic acid has improved back to normal. At my time of evaluation his is at the bedtime had long discussion with patient about future caregiving will start on sertraline he will follow up with Dr. Copeland. Reduce alcohol consumption and follow up with an orthopedic evaluation for his hip. He will be discharged home today Time-Based Coding :: [TOTAL MINUTES] spent with patient and on the chart (including review of chart, obtaining history, exam, reviewing outside data, placing orders, documenting exam and treatment plan, and counseling patient) on [DATE].
--- NOTE | 2024-03-22 12:21 | CM.DANOTE ---
Brief DCP Assessment Note Pt is a 78yo M here following alcohol withdrawal, AMS. PCP Dr. Dinorah Alex Medicare and [facility] SLOT FLOOR PERSON reviewed EMR. CIWAs have remained 0 through majority of admission. Per [facility] note, pt mentation normal in morning and plans to dc him home. Per [facility] note, pt plans to limit alcohol consumption. Per hogge note, drinks 2-3 vodkas per night. Per [facility] note, pt cleared to dc home with spouse this morning. SLOT FLOOR PERSON attempted to meet with pt in room. Pt left prior to being seen by this SLOT FLOOR PERSON. Per chart review, lives at home in [place] with spouse support. P: dc home today. Will f/u with PCP in OP setting. CM team will continue to follow as needed LALY Hoff Discharge Planning/Care Management CM Discharge Assessment Start: 03/22/24 12:20 Freq: Status: Active Protocol: Document 03/22/24 12:20 (Rec: 03/22/24 12:21 [id number]) Discharge Planning Assessment Assigned Ophthalmology Technician LALY Rangel DPOA/Assigned Designee Name pranay Aaron Contact Information [phone] Advance Directives? Yes Advance Directives on File Yes History Provided By Patient,Significant Other Prior Living Arrangements House Household Members spouse Independent with ADL's Yes Is patient alert and oriented? Yes Barriers to Discharge No Discharge Plan Home Transportation Arrangement will drive patient home at D/C Referrals Initiated None needed Whiteboard Updated in Patient Room with No name and ext. # of Ophthalmology Technician Review Status In Process Please Provide Date Initial DC 03/22/24 Assessment Was Performed Next Review Type Continued Stay Review
[2024-03-23 17:36] LABS: Osmolality, Serum 331 mOsmol/kg (280-301)
== END 2024-03-22 12:00 | disposition home or self-care (01) | DRG 897 ==
LOC: ED 18:07 → AC 23:01 → ICU 23:27
PROVIDERS: Admitting Provider Family Medicine; Emergency Provider Emergency Medicine; Family Provider Internal Medicine; PCP Internal Medicine; Referring Provider Emergency Medicine; Visit Provider Family Medicine
DX: F10.90 Alcohol use, unspecified, uncomplicated (principal); E87.20 Acidosis, unspecified; Y90.6 Blood alcohol level of 120-199 mg/100 ml; E16.2 Hypoglycemia, unspecified; M16.11 Unilateral primary osteoarthritis, right hip; F32.A Depression, unspecified; G47.00 Insomnia, unspecified; E78.5 Hyperlipidemia, unspecified
CPT/HCPCS: 36415; 70450; 71045; 80053; 80305; 80320; 80329; 81001; 82009; 82140; 82962; 83605; 83930; 84146; 84443; 85025; 85610; 85730; 87040; 87086; 87633; 87797; 93005; 96365; 96375; 99284; 99291; G0480; J0696; J2060; J2405; J2560

== ENCOUNTER → 2024-03-30 08:48 | Outpatient (CLI) | payer MEDICARE, BC, SELFPAY ==
[2020-04-24 23:34] VITALS: BMI 24.5
[2024-03-29 11:51] VITALS: BMI 23.7
--- NOTE | 2024-03-30 08:49 | DI.RAD.S_ITS ---
PROCEDURE: FL BARIUM SWALLOW W SPEECH INDICATIONS: Dysphagia, unspecified COMPARISON: TECHNIQUE: Examination was conducted in conjunction with speech pathology per standard protocol. In the lateral projection, filming was performed of the patient swallowing. AP projection filming may also be performed with patient swallowing. COMPARISON: [facility], , BARIUM SWALLOW WITH SPEECH, 02/03/2014, 10:39. FINDINGS: Function: The oral preparatory phase appears normal, with proper containment. The subsequent oral propulsive phase, pharyngeal phase, and esophageal phase of swallowing also appear normal with all proffered substances. There is laryngotracheal penetration and aspiration. There is vallecular pooling. Morphology: No cricopharyngeal bar is identified. No cervical esophageal webs. No Zenker's diverticulum. No strictures. IMPRESSION: Laryngotracheal aspiration. Dictated by: Matt Grant M.D. on 03/30/2024 at 12:56 Approved by: Matt Grant M.D. on 03/30/2024 at 12:58
--- NOTE | 2024-03-30 16:45 | ST.SWALLOW ---
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 Pt also described difficulty moving a bolus from AP since his surgery. Pt expressed frustration d/t hx of swallow difficulties with it progressively have gotten worse this past year. His reports he had a MBSS before 2019, however unable to find the records. She states he failed this test. Pt reports food doesn't go down, bring back up an hour later. Pt reports frequent regurgitation of undigested foods up to 5 hours after eating. He states this may occur at every meal and he occasionally chokes. He has been consuming softer solids and denies any difficulties with liquids. He reports most difficulties consuming dryer foods, rice and dry meats. He currently takes his medications crushed in applesauce. He has a hx of GERD and recently has started GERD medication. Pt saw [facility] on 08/23 where an otolaryngologic (including stroboscopic) exam was performed with the following results: Good glottis closure, left mild paresis in abduction, moderate pooled secretions. [ End ] Subjective Observations Pt was seated in the fluoroscopy chair with directions and procedures described for him. He indicated he understood and agreed to proceed. Patient Positioning Position View Lat-A/P Imaging Lateral View Textures Administered Trials Presented Thin Liquid via Spoon (IDDSI 0 ),Thin Liquid via Cup (IDDSI 0 ),Mildly Thick Liquid via Spoon (IDDSI 2),Extremely Thick Liquid via Spoon (IDDSI 4),Regular (IDDSI 7) Barium Tablet Yes The IDDSI Framework Protocol: IDDSI.1 Oral Impairment Source: The Modified Barium Swallow Impairment Profile (MBSImP??) Lip Closure No labial escape Tongue Control During Bolus Hold Cohesive bolus between tongue to palatal seal Bolus Preparation/Mastication Timely & efficient chewing & mashing Bolus Transport/Lingual Motion Repetitive/disorganized tongue motion Initiation of Pharyngeal Swallow No visible initiation at any location Additional Oral Impairment Observations *OME and DKS were observed to be WNL. *Dentition was natural in good hygiene. *Mastication observed with rotary chew pattern. *Adequate bolus formation. Reduced coordination with disorganized lingual control and rocking AP transition observed across all swallows. Pharyngeal Impairment Source: The Modified Barium Swallow Impairment Profile (MBSImP??) Soft Palate Elevation No bolus between soft palate & pharyngeal wall Laryngeal Elevation No superior movement of thyroid cartilege Anterior Hyoid Excursion No anterior movement Epiglottic Movement No inversion Laryngeal Vestibular Closure None; wide column air/contrast in laryngeal vestibule Pharyngeal Stripping Wave Absent Additional Pharyngeal Impairment Delayed swallow initiation Observations with mino aspiration initial trial (teaspoon). No reflexive cough. No hyolaryngeal elevation and movement, no epiglottal inversion no posterior pharyngeal wall stripping and weak tongue base retraction strength were observed. Aspiration was silent with delayed reflexive cough production that was weak. Cued cough was ineffective in clearing residue from trachea. Pt reported that he experiences this all the time . Following the initial swallow, all following trials were conducted with a right head turn. Right head turn was effective in approximating the left VF (paretic) with the right VF protecting the airway from further aspiration during the MBSS. No aspiration was noted with the right head turn. However, there was minimal control of the boluses through the pharynx for all swallows. Slight hyolaryngeal elevation was noted with right head turn (RHT). With RHT bolus control through the pharynx remained reduced with no epiglottic inversion and significant pooling in the valecullae and the pyriform sinuses. Pt is at high silent aspiration risk if he does not use RHT for all swallows. A/P View Textures Administered Trials Presented Thin Liquid via Spoon (IDDSI 0 ) The IDDSI Framework Protocol: IDDSI.1 A/P View Observations Pharyngeal Contraction Complete Esophageal Clearance Upright Position Esophageal retention Esophageal Function Slowed Clearing,Poor Motility, Stasis,Narrowing Additional A-P Observations Esophageal retention was noted. Water washes were partially effective in aiding solid bolus clearance. Slow clearing and stasis of the boluses through the esophagus was observed. Consecutive swallows of solids would likely stack within the esophagus if time between bites is short. Liquids alone were observed to clear to the stomach Clinical Impressions Dysphagia Type Oral,Pharyngeal,Esophageal Findings Pt presented with significant dysphagia across all swallow phases. Pt is at high silent aspiration risk, regurgitation of undigested foods and liquids. Pt was instructed to turn head right for all swallows of liquids. Right head turn was effective in approximating the left VF (paretic) with the right VF protecing the airway from aspiration during the MBSS. Solids need to be soft and eaten very slowly in order to avoid food stacking in the esophagus. Thin liquids were safey tolerated with RHT. Diet recommendations include thin liquids IF RHT is used with very soft and moist foods to aid in passage through the esophagus without stacking. With the above noted swallow strategies and aspiration precautions in place, the pt's aspiration risk is reduced. However pooling within the pharynx may continue to be silently aspirated. In order to avoid aspiration, the safest option may require a discussion with pt's PCP re: artificial feeding Additionally, it may be possible that VF augmentation may be required to approximate the VFs adequately to reduce silent aspiration of liquids/ secretions. Continued discussion with ENT/PCP may be indicated. Rehabilitation Potential Fair Patient Appropriate for Therapy Yes: Vocal adduction exercises ; base of tongue exercises Recommendations Diet Medication Recommendation Not Recommended by Mouth Comments No change in diet recommended; Emphasized head turn to right with liquids Aspiration Precautions Recommended Precautions Frequent Rest Periods,Small Bites/Sips,Right Head Turn, Liquids from Cup Treatment Plan Therapy Recommendations Outpatient Speech Therapy Recommended Referrals ENT Consult Additional Recommended Referrals Continue with Dr. Flynn re: VF augmentation/monitor ST progress Therapy Strategy Recommendations Turn Head Right Additional Recommendations/Comments Consider VF augmentation to reduce silent aspiration thin liquids
== END ==
PROVIDERS: Family Provider Internal Medicine; PCP Internal Medicine; Referring Provider Specialist; Visit Provider Specialist
DX: R13.10 Dysphagia, unspecified (principal)
CPT/HCPCS: 74230; 92611

== ENCOUNTER → 2024-06-04 10:46 | Outpatient (CLI) | payer MEDICARE, BC, SELFPAY ==
[2024-03-29 11:51] VITALS: BMI 23.7
--- NOTE | 2024-06-04 10:49 | EKG_ITS ---
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
[2024-06-04 11:08] LABS: Add Manual Diff / Slide Review NO; Basophils Absolute Auto 0 /uL (0-100); Basophils Percent Auto 0.9 % (0-2); Eosinophils Absolute Auto 200 /uL (0-450); Eosinophils Percent Auto 3.8 % (2-4); Hematocrit 42.1 % (41-53); Hemoglobin 14.3 g/dL (13.5-17.5); Lymphocytes Absolute Auto 1100 /uL (1100-4500); Mean Corpuscular Hemoglobin 33.1 PG (26-34); Mean Corpuscular Volume 97.5 fL (80-100); Monocytes Absolute Auto 400 /uL (0-900); Monocytes Percent Auto 8.2 % (3-14); Neutrophils Absolute Auto 3300 /uL (1500-7000); Neutrophils Percent Auto 65.1 % (50-75); Platelet Count 179 X10^3/uL (150-400); Red Blood Cell Count 4.32 X10^6/uL (4.5-5.9); Red Cell Distribution Width 14.1 % (11.6-14.8); White Blood Cell Count 5.1 X10^3/uL (4.5-11.0)
[2024-06-04 11:18] LABS: Hemoglobin A1C% w Est Avg Glu 4.9 % (4.0-6.0)
[2024-06-04 11:20] LABS: Albumin 4.3 g/dL (3.5-5.0); BUN Creatinine Ratio 20.3 (6-22); Blood Urea Nitrogen 14 mg/dL (9-20); Calcium 9.3 mg/dL (8.4-10.2); Carbon Dioxide 30 mmol/L (22-32); Chloride 103 mmol/L (98-107); Estimated Glomerular Filt Rate > 60 mL/min (>60); Glucose 89 mg/dL (80-110); HEMOLYSIS < 15 (0-50); Potassium 4.6 mmol/L (3.4-5.1); Sodium 140 mmol/L (137-145)
[2024-06-04 11:27] LABS: Prealbumin 22.4 mg/dL (17.6-36.0)
== END ==
PROVIDERS: Family Provider Internal Medicine; PCP Internal Medicine; Referring Provider Orthopaedic Surgery Adult Reconstructive Orthopaedic Surgery; Visit Provider Orthopaedic Surgery Adult Reconstructive Orthopaedic Surgery
DX: Z01.818 Encounter for other preprocedural examination (principal); R73.9 Hyperglycemia, unspecified; E55.0 Rickets, active; Z01.812 Encounter for preprocedural laboratory examination; R77.0 Abnormality of albumin; E55.9 Vitamin D deficiency, unspecified
CPT/HCPCS: 36415; 80048; 82040; 82306; 83036; 84134; 85025; 93005; 93010

== ENCOUNTER → 2024-07-20 10:04 | Outpatient (CLI) | payer MEDICARE, BC, SELFPAY ==
[2024-03-29 11:51] VITALS: BMI 23.7
--- NOTE | 2024-07-20 | DI.RAD.S_ITS ---
PROCEDURE: XR DEXA AXIAL SKELETON INDICATIONS: other specified disorders of bone density COMPARISON: None. FINDINGS: Lumbar Spine: Bone mineral density 1.55 g/cm2, T score 4.6,. Right Hip: Bone mineral density 1.07 g/cm2, T score 1,. Right Femoral Neck: Bone mineral density 0.92 g/cm2, T score 0.6,. Left Forearm: Bone mineral density 0.84 g/cm2, T score 2.5,. Fracture Risk Calculation (when applicable): 10-year fracture risk of a major osteoporotic fracture 6.7 percent and of a hip fracture 3 percent. (T score greater or equal to -1.0 to: NORMAL) (T score from -1.1 to -2.4: OSTEOPENIA) (T score less than or equal to -2.5: OSTEOPOROSIS) IMPRESSION: T-scores are within normal limits. Follow-up guidelines as follows: Osteoporosis: Consider a repeat DEXA and Vertebral Fracture Assessment (VFA) exam in 2 years or sooner if medically necessary, to reassess this patient's status. Osteopenia: Consider a repeat DEXA in 2-3 years to reassess this patient's status, or if there is a new clinical indication. Normal: Consider a repeat DEXA in 5 years or sooner, or if there is a new clinical indication. All treatment decisions require clinical judgment and consideration of individual patient factors, including patient preferences, comorbidities, previous drug use, risk factors not captured in the FRAX model (e.g., frailty, falls, vitamin D deficiency, increased bone turnover, interval significant decline in bone density ) and possible under- or over-estimation of fracture risk by FRAX. In addition, the NOF Guide recommends that FDA-approved medical therapies be considered in postmenopausal women and men age >= 50 years with a: * Hip or vertebral (clinical or morphometric) fracture * T-score of <=-2.5 at the spine or hip * Ten-year fracture probability by FRAX of >= 3% for hip fracture or >=20% for major osteoporotic fracture. People with diagnosed cases of osteoporosis or at high risk for fracture should have regular bone mineral density tests. For patients eligible for Medicare, routine testing is allowed once every 2 years. The testing frequency can be increased to one year for patients who have rapidly progressing disease, those who are receiving or discontinuing medical therapy to restore bone mass, or have additional risk factors. Dictated by: Chas Penn M.D. on 07/20/2024 at 17:15 Approved by: Chas Penn M.D. on 07/20/2024 at 17:17
== END ==
PROVIDERS: Family Provider Internal Medicine; PCP Internal Medicine; Referring Provider Orthopaedic Surgery Adult Reconstructive Orthopaedic Surgery; Visit Provider Orthopaedic Surgery Adult Reconstructive Orthopaedic Surgery
DX: M16.11 Unilateral primary osteoarthritis, right hip (principal); M85.89 Other specified disorders of bone density and structure, multiple sites
CPT/HCPCS: 77080; 77081

== ENCOUNTER 2024-08-08 14:00 | Inpatient (IN) | payer MEDICARE, BC, SELFPAY ==
[2024-03-29 11:51] VITALS: BMI 23.7
[2024-08-02 13:36] VITALS: BMI 21.9
[2024-08-08] VITALS (16 sets, daily range): BP systolic 85–146; BP diastolic 46–84; PULSE 66–100; RESP 11–21; TEMP 36.1–36.6; O2SAT 92–100; BMI 22.5
--- NOTE | 2024-08-08 | DI.RAD.S_ITS ---
PROCEDURE: XR HIP W PEL IF DONE RT 2V INDICATIONS: RT TOTAL HIP TECHNIQUE: AP pelvis and lateral view of the hip acquired. COMPARISON: [facility], CR, XR PELVIS WITH LATERAL HIP RIGHT, 05/05/2024, 16:14. [facility], CR, XR HIP W PEL IF DONE RT 2V, 08/08/2024, 11:49. FINDINGS: Bones: Patient is status post right hip arthroplasty, with hardware components in expected positions. The hip joint appears congruent. Remote prior left hip arthroplasty appears unchanged. The visualized bony structures appear intact. Soft tissues: Overlying postoperative changes are noted. No suspicious soft tissue densities. IMPRESSION: Expected post-operative appearance of a hip arthroplasty. Approved by: Riaz Hyatt M.D. on 08/08/2024 at 16:46
--- NOTE | 2024-08-08 06:00 | DI.RAD.S_ITS ---
PROCEDURE: XR HIP W PEL IF DONE RT 2V INDICATIONS: DARRELL TECHNIQUE: 4 operative views of the hip were acquired. COMPARISON: [facility], , XR HIP W PEL IF DONE LT 2V, 05/06/2021, 18:19. FINDINGS: 4 operative images demonstrate performance of ORIF of the right hip with no identifiable complications. IMPRESSION: Imaging utilized during operative replacement of the right hip. Dictated by: Carroll Benz M.D. on 08/08/2024 at 13:02 Approved by: Carroll Benz M.D. on 08/08/2024 at 13:03
[2024-08-08] MEDS: MELOXICAM 7.5 MG TABLET 15 MG PO (09:45)
[2024-08-08] MEDS: ACETAMINOPHEN 325 MG TABLET 975 MG PO (09:45)
[2024-08-08] MEDS: LACTATED RINGERS 1,000 ML 42 ML IV ×2 (09:45→13:11)
--- NOTE | 2024-08-08 10:48 | PM.PREOP ---
Pre-operative Note Interval Note History & Physical reviewed/Exam performed by Physician: Yes Changes to H&P: No
[2024-08-08] MEDS: CEFAZOLIN 2 GM/100 ML PREMIX 100 ML IV ×2 (11:04→18:43)
[2024-08-08] MEDS: TRANEXAMIC ACID 1,000 MG VIAL 2000 MG INJ ×2 (11:05→12:30)
--- NOTE | 2024-08-08 11:19 | SUR.OPER ---
Patient supine on padded Horton table, both arms on padded arm board at <90, both legs secured in padded traction boots and positioned per surgeon, padded post at patient's groin, pressure points checked and padded.
[2024-08-08] MEDS: ROPIVACAINE/EPI/CLONIDINE/KET 50 ML SYRINGE INJ (11:30)
--- NOTE | 2024-08-08 12:40 | P.OP_ITS ---
Operative Date/Time/Diagnoses Date of procedure: 08/08/24 Procedure & Clinicians Procedure: Right total hip arthroplasty Same procedure as scheduled: Yes Surgeon: Shaggy Brown Field Secretary: Ivette Holbrook Anesthesia Type: General and Local Operative Notes Estimated Blood Loss (mL): 200 Procedure in detail: Right Uncemented Direct Anterior Depuy Total Hip Arthroplasty: Implants: * [place] Gription size 62 cup? * Actis femoral stem size 6 high offset? * 36 mm +5 ceramic femoral head? Procedure Summary: This 78-year-old male patient is noteworthy for a low BMI, a history of excess alcohol intake, and DISH. Because of his low BMI I have had him taking high- protein supplementation in anticipation of surgery. I also got a DEXA scan which actually demonstrated a normal bone density so although I did consider using cemented fixation I ultimately elected to use a triple tapered collared stem given his adequate bone quality despite his low BMI. I additionally considered using dual mobility because of his diagnosis of DISH. I felt that there was a possibility that his DISH could have resulted in some spinal stiffness. Templating however indicated that if I utilized a dual mobility construct I would need to go to a +12 head, which does not exist in the 28 mm head size. I eventually concluded that his risk of dislocation would be very low given the planned anterior approach and that by using an offset liner I would be able to more readily regain his leg length and offset than if I used a dual mobility liner, to maximize my flexibility with head sizes. Intraoperatively I noted good bone quality as anticipated based on his DEXA sca n. I initially trialed with a 5 high offset and a +8.5 head which was appropriate however it did appear slightly undersized on the AP hip x-ray and the broach was rotationally unstable when I examined it after returning to the broaching position so I transitioned to a 6 high offset with a +5 head as well as the +4 liner to replicate the construct I had had during the trialing. procedure in Detail: This patient was seen preoperatively and evaluated for hip pain which was refractory to numerous nonoperative treatment modalities. Their hip pain correlated with radiographic changes demonstrating significant degeneration in the hip joint. The risks and benefits of continued nonoperative management versus operative management were discussed at length and all of the patient?s questions were answered. Additional educational materials providing further details beyond our discussion in clinic were provided via a publicly available patient education video which included the incidence of medical complications associated with total hip arthroplasty, reasons for revision following total hip arthroplasty, and patient satisfaction rates following total hip arthroplasty. That video can be accessed at [email or web address] . With this understanding of the risks inherent to the procedure, the patient elected to move forward with operative management. Following preoperative optimization, the patient was scheduled for surgery. The patient was met in the preoperative holding area the day of the procedure and all questions were answered. The patient?s nares were swabbed with betadine in order to decolonize them from MRSA. Informed consent was signed and the right limb was marked with indelible ink.? The patient was brought back to the operating room where anesthesia was induced. The patient was transferred to the Giltner table and all bony prominences were padded. The operative site was prepped and draped in the usual sterile fashion. Prior to incision, tranexamic acid and cefazolin were administered. Operative templating images were displayed demonstrating the anticipated implant sizes and correct operative extremity. A timeout procedure was performed verifying the patient?s identity, medical comorbidities, allergies, relevant medications, anesthesia type and the surgical plan. All present were in agreement. The assistance of a physician social and human services assistant was required for positioning, room setup, soft tissue retraction and wound closure. Without this assistance, the procedure would have been significantly more challenging and time consuming.?? A direct anterior approach to the hip was utilized. This was performed with a longitudinal incision through a Heuter interval. The incision was planned 2 cm distal and 2 cm lateral to the ASIS extending towards the lateral patella, in line with the muscle body of the TFL. Following incision, the subcutaneous tissue was dissected while taking care to avoid injury to the lateral femoral cutaneous nerve. The fascia overlying the TFL was identified by dissecting off the overlying fat and identifying perforating vessels to the TFL. The TFL fascia was incised and dissected away from the medial border of the TFL. A cobra retractor was placed over the superior femoral neck between the abductors and the hip capsule and used to reflect the TFL laterally. A Scott self-retainer was then placed in the distal aspect of the wound between the TFL and the rectus femoris. This was tensioned to open up the direct anterior interval and the lateral circumflex vessels were identified and coagulated using electrocautery. The floor of the TFL fascia was incised, exposing the pericapsular fat overlying the hip capsule. A second cobra retractor was placed on the inferior femoral neck. A double-bent soft tissue retractor was placed on the anterior wall of the acetabulum and used to tension the reflected head of rectus femoris, which was then released in order to limit soft tissue tension. A capsulotomy was made in the midline of the anterior hip capsule in line with the femoral neck ending at the vastus tubercle. The double-bent retractor was removed in order to limit the amount of time that a soft tissue retractor remained on the anterior wall and protect the femoral nerve. Tag stitches were placed in the superior and inferior leaflets of the hip capsule. An Noe soft tissue retractor was introduced over the tag stitches and tensioned in the interval between the rectus femoris and the TFL in order to retract and protect those muscles. The cobra retractors were replaced intracapsularly, with one over the superior neck in the pocket created by the base of the greater trochanter and the other on the femoral head. The capsulotomy was extended laterally to the base of the greater trochanter and medially to the lesser trochanter. This required externally rotating the hip. Once the lesser trochanter had been identified, a neck cut was planned according to measurements from preoperative templating. A ruler was cut at the length measured between the superior aspect of the lesser trochanter and the collar of the prosthesis. This line was extended towards the inferior aspect of the lateral cobra retractor to plan a cut which would leave minimal residual femoral neck laterally. The neck was cut at 60 degrees of external rotation along that line. A second cut was performed to remove a large napkin ring and facilitate head extraction. The napkin ring cut and femoral head were removed.?? A broad anterior wall retractor was placed between the labrum and the anterior capsule so that the anterior capsule would prevent capturing and pinching the femoral nerve anteriorly. An additional retractor was placed on the posterior wall. External rotation and traction were applied through the Giltner table so that the cut surface of the femoral neck would not restrict access to the acetabulum. The labrum was excised sharply and the pulvinar was excised with electrocautery to limit bleeding from branches of the obturator artery. Acetabular reamers were selected based on preoperative templating and measurements of the excised femoral head. These were introduced into the acetabulum. Fluoroscopy was utilized to replicate a standing AP pelvis radiograph by centering over the pelvis, rotating until there was appropriate symmetry between the obturator foramen, and introducing caudal tilt to match the position of the pubic symphysis relative to the sacrococcygeal junction according to the patient?s anatomy. Fluoroscopy was utilized to ensure appropriate reaming depth. Once satisfied with the reaming depth corresponding to the preoperative template and the pinch fit between the columns, an appropriate sized acetabular cup was selected which would provide 1 mm of press-fit. This cup was introduced and manipulated until appropriate abduction and anteversion angles were obtained with careful attention to appropriate abduction and anteversion angles as evaluated by the position of the cup relative to the anterior and posterior bell of the acetabulum and the AP fluoroscopy which recreated the patient?s standing radiograph. The cup was impacted into place. Peripheral osteophytes were removed. The acetabular liner was then placed with care to ensure locking of the locking mechanism.? Attention was then turned to the femur. All retractors were removed, traction was released, a retractor was placed in the interval between the hip capsule and the gluteus minimus, and the hip was externally rotated to 90 degrees. Traction was applied through the Giltner table to tension the lateral capsule and this was released using electrocautery. Traction was released and a Giltner hook was placed posteriorly around the proximal femur at the level of the vastus ridge. The table height was lowered in order to restrict the tension on the anterior structures during hip hyperextension to limit the risk of femoral nerve palsy. With traction off and the hip at 90 degrees of external rotation, the hip was hyperextended and adducted while manually elevating the femur away from the acetabulum with the Giltner hook to ensure it would not be caught behind the greater trochanter. An asymmetric retractor was placed over the calcar and a broad double-pronged retractor was placed over the greater trochanter. The tag stitch capturing the lateral leaflet of the capsule was moved to the medial side, leaving the conjoined and piriformis tendons isolated in the face of the greater trochanter. The hip was externally rotated and elevated. A release of the conjoined tendon was not necessary in order to obtain adequate exposure for broaching. The canal was opened with an opening broach and a rasp was used to remove cancellous bone. A rongeur was used to remove the residual lateral bone at the base of the greater trochanter to avoid placing the stem in varus. The femur was then broached to the appropriate sized stem yielding good rotational fit and fill of the canal as well as appropriate version of the stem trial. Neck and head trials were placed, all retractors were removed and the hip was returned to neutral abduction and extension. I then reduced the hip. Initial trialing was performed with a size 5 broach, a high offset neck and a +8.5 head. I initially manually externally rotated the hip and found no instability. I then locked the hip in 45 degrees of external rotation and dropped it to the floor with traction off which demonstrated no instability. An AP pelvis fluoroscopic image matching the preoperative standing radiograph with both lesser trochanters visible and both hips in 40 degrees of external rotation demonstrated equal leg lengths. AP and lateral hip fluoroscopic images were obt ained to evaluate the broach size which demonstrated that the stem was slightly undersized on the AP. The hip was dislocated and I returned to the broaching position. Based on my evaluation during initial trialing I planned to test stability to evaluate whether I should go up by a stem size or remain at the size 5, and then implant either a size 5 high offset with a +8.5 head or a 6 high offset with a +5 head which would provide equivalent leg lengths and offsets. I did find that the stem was rotationally unstable so I upsized to a size 6 stem which sink to the same position and achieved rotational stability. The definitive stem was placed and the trunnion was cleaned and dried. I placed a ceramic head onto the trunnion and impacted it into place on the [place] taper.?? All retractors were removed and the hip was reduced. A dilute mixture of betadine and peroxide was used to bathe the soft tissues during final fluoroscopic assessment. Appropriate component positioning was confirmed on an AP pelvis radiograph with the operative and nonoperative legs in 40 degrees of external rotation, evaluating leg length and offset. Appropriate stem fill was evaluated on AP and lateral hip radiographs. No fractures were identified on these radiographs. There was no hip instability with maximum (115?) external rotation as well as a 45 degree drop test. The hip was copiously irrigated with pulse lavage. The capsule was closed with absorbable interrupted suture. The TFL fascia was closed with barbed suture while carefully protecting the lateral femoral cutaneous nerve from entrapment. A mixture of Ropivacaine, Epinephrine, Clonidine and Toradol was infiltrated throughout the soft tissues. The skin was closed with 2-0 and 3-0 sutures. Surgical glue was applied and a soft dressing was placed.??The sponge, instrument and needle counts were reported as being correct at the end of the case.??No obvious complications occurred. The patient was transferred from the Giltner table back to a stretcher. The patient emerged from anesthesia without difficulty and was taken to the PACU in a stable condition.? Plan for aftercare: * Anterior hip precautions * Weightbearing as tolerated * Aspirin 81 twice per day for DVT prophylaxis * Patient is anticipated to require additional assistance upon discharge. I anticipate he will mobilize well enough to discharge home but will likely need home health assistance which I am hoping the social work team here can help arrange * Change into normal clothes upon arrival on the hospital floor * Mobilize in the halls as much as is logistically possible. If physical therapy is unavailable for mobilization, then patient should mobilize with nursing staff * Multimodal pain regimen with no IV opioids ordered * Apply ice machine to operative hip. Ensure that sufficient ice is in the chamber for the pad to remain cold * Follow up at [facility] in 2 weeks * Detailed postoperative instructions available at [email or web address]
[2024-08-08] MEDS: HYDROMORPHONE 1 MG INJ IV (13:15)
[2024-08-08] MEDS: ONDANSETRON 4 MG/2 ML INJ IV ×2 (13:16→19:24)
[2024-08-08] MEDS: OXYCODONE IR 5 MG TABLET PO ×3 (13:33→22:36)
[2024-08-08] MEDS: LACTATED RINGERS 1,000 ML 100 ML IV (14:00)
[2024-08-08] MEDS: IBUPROFEN 600 MG TABLET PO ×2 (14:39→20:07)
[2024-08-08] MEDS: ACETAMINOPHEN 325 MG TABLET 650 MG PO ×2 (14:40→20:07)
--- NOTE | 2024-08-08 15:12 | PC.NURSE ---
Patients dressing to r.hip is cdi, with small amount of old drainage to dressing. He is in 7/10 pain, and patient was just given oxycodone, tylenol, and ibuprofen. He is tolerating this well. is at bedside. NO void thus far. Will continue to monitor care.
--- NOTE | 2024-08-08 15:25 | PT-IP ANOTE ---
PT s/p anterior hip replacement today. PT order received and PT reviews chart and takes in hip folder. Pt and report concern that pain was not well managed and he is just now comfortable. They decline PT at this time and anticipate staying overnight. PT ed pt and that after total hip, he can get up with nsg when he is ready and PT recommends sitting EOB and up to chair for dinner as tolerates. Nsg also in room during discussion. Con't PT efforts at another time.
--- NOTE | 2024-08-08 16:17 | P.PN_ITS ---
Subjective Subjective Interval history: I checked on Victoria postoperatively. He was resting comfortably when I arrived. Reportedly he had been having a fairly significant amount of pain earlier in the postoperative recovery phase. This improved with medication. He did not have an ice machine when I saw him so I retrieved 1 of these for him and filled it with ice and ensure that it was cold and placed on his operative site. He has intact sciatic and femoral nerve function and a clean dressing. I plan to have him mobilize with physical therapy tomorrow and discharge home tomorrow with home health as his is concerned that she may not be able to meet all of his needs initially during the postoperative recovery. Exam Vital Signs (past 8 hours): - 08/08/24 09:30 08/08/24 13:03 08/08/24 13:06 Temperature 97.3 F L 97.3 F L Pulse Rate 73 100 H 83 Respiratory Rate 20 17 17 Blood Pressure 146/84 H 91/54 L 101/64 Pulse Oximetry 99 92 98 Oxygen Delivery Method Room Air Nasal Cannula Nasal Cannula Oxygen Flow Rate 3 2 08/08/24 13:10 08/08/24 13:16 08/08/24 13:22 Temperature Pulse Rate 74 73 81 Respiratory Rate 12 11 L 12 Blood Pressure 85/55 L 96/59 L 99/59 L Pulse Oximetry 100 99 99 Oxygen Delivery Method Nasal Cannula Nasal Cannula Nasal Cannula Oxygen Flow Rate 3 2 2 08/08/24 13:29 08/08/24 13:35 08/08/24 13:39 Temperature Pulse Rate 80 70 68 Respiratory Rate 11 L 21 16 Blood Pressure 100/53 L 94/58 L 99/62 Pulse Oximetry 100 100 99 Oxygen Delivery Method Nasal Cannula Nasal Cannula Nasal Cannula Oxygen Flow Rate 2 2 2 08/08/24 13:55 08/08/24 14:30 08/08/24 15:00 Temperature 96.9 F L 97.1 F L 97.4 F L Pulse Rate 74 69 67 Respiratory Rate 16 18 17 Blood Pressure 105/46 L 108/55 L 116/61 Pulse Oximetry 99 98 98 Oxygen Delivery Method Oxygen Flow Rate 0 1 1 Oxygen Delivery Method Nasal Cannula Oxygen Flow Rate 1 [facility] Medical History Chronic right hip pain Bilateral inguinal hernia without obstruction or gangrene DISH (diffuse idiopathic skeletal hyperostosis) Chronic left hip pain Alcohol abuse Thoracic aortic aneurysm Sciatica Chronic back pain GERD (gastroesophageal reflux disease) (~2018) Insomnia AAA (abdominal aortic aneurysm) (~2019) Glaucoma (02/21/11) Gout (02/21/11) Hyperlipidemia (02/21/11) Arthritis Symptomatic cholelithiasis Surgical History Status post bilateral hernia repair (~07/2020) Anesthesia Status post lumbar surgery S/P laparoscopic cholecystectomy (~11/2018) Hx of fusion of cervical spine (09/23/05) Status post left hip replacement (~12/2012) Family History Father Bladder cancer Brother Throat cancer Grandfather Stroke Social History marital status: household members: spouse occupational status: previously employed Smoking Status: Former smoker alcohol intake: current substance use type: marijuana Assessment & Plan Time-Based Coding :: [TOTAL MINUTES] spent with patient and on the chart (including review of chart, obtaining history, exam, reviewing outside data, placing orders, documenting exam and treatment plan, and counseling patient) on [DATE]. Quality VTE Deep Vein Thrombosis/Pulmonary Embolism Present on Admission: No
[2024-08-08] MEDS: ASPIRIN EC 81 MG TABLET PO (20:07)
[2024-08-08] MEDS: DOCUSATE 100 MG CAPSULE PO (20:07)
[2024-08-08] MEDS: QUETIAPINE 25 MG TABLET 50 MG PO (20:07)
[2024-08-08] MEDS: ATORVASTATIN 20 MG TABLET PO (20:07)
[2024-08-09] VITALS: BP 129/71; PULSE 83; TEMP 36.4; O2SAT 98
[2024-08-09] MEDS: LACTATED RINGERS 1,000 ML 100 ML IV (00:42)
[2024-08-09] MEDS: ACETAMINOPHEN 325 MG TABLET 650 MG PO ×3 (02:43→20:45)
[2024-08-09] MEDS: CEFAZOLIN 2 GM/100 ML PREMIX 100 ML IV (02:44)
[2024-08-09] MEDS: OXYCODONE IR 5 MG TABLET PO ×2 (02:44→09:13)
[2024-08-09] MEDS: IBUPROFEN 600 MG TABLET PO ×3 (02:44→20:45)
[2024-08-09 04:00] VITALS: BP 122/60; PULSE 75; RESP 16; TEMP 36.4; O2SAT 98
[2024-08-09] MEDS: ONDANSETRON 4 MG/2 ML INJ IV ×2 (04:28→11:57)
[2024-08-09 05:07] LABS: Hemoglobin 11.6 g/dL (13.5-17.5)
--- NOTE | 2024-08-09 07:42 | P.PN_ITS ---
Subjective Subjective Date Patient Seen: 08/09/24 Time Patient Seen: 07:43 Interval history: Patient's pain is moderate. He has been nauseous since surgery with couple episodes of vomiting overnight. He has not yet been out of bed. He is using the bedside urinal. His is home to assist him. Patient would like to be discharged home today if possible. Exam Vital Signs (past 8 hours): - 08/09/24 00:00 08/09/24 04:00 Temperature 97.6 F 97.6 F Pulse Rate 83 75 Respiratory Rate 16 Blood Pressure 129/71 122/60 Pulse Oximetry 98 98 Oxygen Flow Rate 0 0 Fraction of Inspired Oxygen 24 SaO2/FiO2 Ratio 412 Oxygen Delivery Method Room Air Oxygen Flow Rate 0 Narrative Exam Narrative: 78-year-old male resting comfortably in bed in no apparent distress. Dressing is clean, dry and intact. Neurovascular status is intact bilateral lower extremities. Const General: cooperative and comfortable Nutritional Appearance: average body habitus Orientation: alert Resp Effort & Inspection: normal respiratory effort and able to speak in complete sentences Objective Labs 08/09/24 04:40 Labs: Laboratory Results - last 24 hr 08/09/24 04:40 Hgb 11.6 L Hct 33.0 L PFSH Medical History Chronic right hip pain Bilateral inguinal hernia without obstruction or gangrene DISH (diffuse idiopathic skeletal hyperostosis) Chronic left hip pain Alcohol abuse Thoracic aortic aneurysm Sciatica Chronic back pain GERD (gastroesophageal reflux disease) (~2018) Insomnia AAA (abdominal aortic aneurysm) (~2019) Glaucoma (02/21/11) Gout (02/21/11) Hyperlipidemia (02/21/11) Arthritis Symptomatic cholelithiasis Surgical History Status post bilateral hernia repair (~07/2020) Anesthesia Status post lumbar surgery S/P laparoscopic cholecystectomy (~11/2018) Hx of fusion of cervical spine (09/23/05) Status post left hip replacement (~12/2012) Family History Father Bladder cancer Brother Throat cancer Grandfather Stroke Social History marital status: household members: spouse occupational status: previously employed Smoking Status: Former smoker alcohol intake: current substance use type: marijuana Assessment & Plan Post-op Postoperative Procedures: Procedures Operation Date: 08/08/24 10:45 Actual Procedure Side Surgeon p Total Hip Arthroplasty/Anterior Approach Right Shaggy Brown MD Postoperative day: 1 Postoperative status narrative: Stable Postoperative plan: routine post-op care Postoperative plan narrative: Anterior hip precautions Weightbearing as tolerated Aspirin 81 twice per day for DVT prophylaxis Patient is anticipated to require additional assistance upon discharge. I anticipate he will mobilize well enough to discharge home but will likely need home health assistance which I am hoping the social work team here can help arrange Change into normal clothes upon arrival on the hospital floor Mobilize in the halls as much as is logistically possible. If physical therapy is unavailable for mobilization, then patient should mobilize with nursing staff Multimodal pain regimen with no IV opioids ordered Apply ice machine to operative hip. Ensure that sufficient ice is in the chamber for the pad to remain cold Follow up at [facility] in 2 weeks Detailed postoperative instructions available at [email or web address] Quality VTE Deep Vein Thrombosis/Pulmonary Embolism Present on Admission: No
--- NOTE | 2024-08-09 07:56 | P.DS_ITS ---
History of Present Illness History of Present Illness Date Patient Seen: 08/09/24 Time Patient Seen: 07:57 Chief complaint: Knee pain Narrative: See progress note Discharge Providers Provider Discharge Date: 08/09/24 Primary care physician: Gigi Copeland MD Consults: 08/02/24 14:24 Consult to Anesthesiology Routine Comment: Consulting Provider: Anesthesiologist Reason for consultation: Surgeon request - AAA. 08/08/24 06:00 Consult to Anesthesiology Routine Comment: Consulting Provider: Anesthesiologist Reason for consultation: Regional block for post operative pain control 08/08/24 13:48 Consult to Discharge Planning Routine Comment: Please arrange for home health Consult to Physical Therapy Evaluate & Treat Comment: Physician Instructions: post op DARRELL protocol Discharge provider: Epifanio Gomes PA-C Exam Vital Signs (past 8 hours): - 08/09/24 00:00 08/09/24 04:00 Temperature 97.6 F 97.6 F Pulse Rate 83 75 Respiratory Rate 16 Blood Pressure 129/71 122/60 Pulse Oximetry 98 98 Oxygen Flow Rate 0 0 Fraction of Inspired Oxygen 24 SaO2/FiO2 Ratio 412 Oxygen Delivery Method Room Air Oxygen Flow Rate 0 Objective Labs 08/09/24 04:40 Labs: Laboratory Results - last 24 hr 08/09/24 04:40 Hgb 11.6 L Hct 33.0 L PFSH Medical History Chronic right hip pain Bilateral inguinal hernia without obstruction or gangrene DISH (diffuse idiopathic skeletal hyperostosis) Chronic left hip pain Alcohol abuse Thoracic aortic aneurysm Sciatica Chronic back pain GERD (gastroesophageal reflux disease) (~2018) Insomnia AAA (abdominal aortic aneurysm) (~2018) Glaucoma (02/21/11) Gout (02/21/11) Hyperlipidemia (02/21/11) Arthritis Symptomatic cholelithiasis Surgical History Status post bilateral hernia repair (~07/2020) Anesthesia Status post lumbar surgery S/P laparoscopic cholecystectomy (~11/2018) Hx of fusion of cervical spine (09/23/05) Status post left hip replacement (~12/2012) Family History Father Bladder cancer Brother Throat cancer Grandfather Stroke Social History marital status: household members: spouse occupational status: previously employed Smoking Status: Former smoker alcohol intake: current substance use type: marijuana Discharge Plan Discharge orders & Medications Prescriptions: No Action brimonidine [Alphagan P] 0.1 % drops 1 drp OPHTH DAILY Qty: 10 Rx Instructions: Both eyes rosuvastatin 10 mg tablet 10 mg PO DAILY Qty: 90 3RF quetiapine 50 mg tablet 50 mg PO BEDTIME Qty: 90 3RF latanoprost 0.005 % drops 1 drp EYE-BOTH DAILY baclofen 10 mg tablet 10 mg PO DAILY PRN (Reason: muscle pain.) oxymetazoline [Afrin Extra Moisturizing] 0.05 % [place],Non-Aerosol 2 spray INTRANASAL DAILY docusate sodium 100 mg Tablet 100 mg PO DAILY PRN (Reason: constipation.) Follow up/Referrals: Gigi Copeland MD [Primary Care Provider] - Shaggy Brown MD [Physician] - 08/18/24 11:30 am (Follow up w/ Ivette Holbrook PA-C, at [facility] in [place].) Diet/Activity/Treatments Diet: Diet as Tolerated Activity: Weightbearing as tolerated. Anterior hip precautions. Cold/Heat Therapy: Ice to hip as needed for pain. Skin/Wound/Dressing Care Report to your healthcare provider any signs of infection, such as:: chills, fever, night sweats, unusual drainage and unusual redness Dressing: May shower. Leave dressing in place until follow up in office. No bathing or otherwise soaking incision. Call the office if the dressing becomes saturated inside. Visit Report/Discharge Packet Instructions: DI for Hip Replacement Stand Alone Forms: Surgery Discharge Discharge Data Primary Care Provider: Gigi Copeland Attending Provider: Shaggy Brown Quality VTE Deep Vein Thrombosis/Pulmonary Embolism Present on Admission: No
[2024-08-09 08:37] VITALS: BP 121/61; PULSE 80; RESP 17; O2SAT 95
[2024-08-09] MEDS: DOCUSATE 100 MG CAPSULE PO ×2 (09:14→20:50)
[2024-08-09] MEDS: ASPIRIN EC 81 MG TABLET PO ×2 (09:14→20:50)
[2024-08-09] MEDS: ONDANSETRON 4 MG ODT PO ×2 (09:42→20:50)
--- NOTE | 2024-08-09 10:40 | PT.IIE ---
Current Diagnoses Unilateral primary osteoarthritis, right hip (08/08/24) Surgery Performed Operation Date: 08/08/24 10:45 Actual Procedures p Total Hip Arthroplasty/Anterior Approach(Right) - Shaggy Brown MD Surgical History (Last Reviewed 08/09/24 @ 07:44 by Epifanio Gomes PA-C) Anesthesia Hx of fusion of cervical spine (09/23/05) S/P laparoscopic cholecystectomy (~11/2018) Status post bilateral hernia repair (~07/2020) Status post left hip replacement (~12/2012) Status post lumbar surgery Medical History (Last Reviewed 08/09/24 @ 07:44 by Epifanio Gomes PA-C) AAA (abdominal aortic aneurysm) (~2018) Alcohol abuse Arthritis Bilateral inguinal hernia without obstruction or gangrene Chronic back pain Chronic left hip pain Chronic right hip pain DISH (diffuse idiopathic skeletal hyperostosis) GERD (gastroesophageal reflux disease) (~2018) Glaucoma (02/21/11) Gout (02/21/11) Hyperlipidemia (02/21/11) Insomnia Sciatica Symptomatic cholelithiasis Thoracic aortic aneurysm Physical Therapy Inpatient Evaluation/Re-Eval M1 PT/OT-IP Prior Functional Status Start: 08/08/24 15:20 Freq: NEEDED Status: Active Protocol: Document 08/09/24 10:40 AB (Rec: 08/09/24 13:27 AB [id number]) Medical Review Prior Functional Status Medical History Reviewed Yes Communication able to make needs known; slow to respond to questions and instructions Mobility and Gait spouse provided most of pt's PLOF and home set up pt was modified independent with all mobilities and ambulation using SPC Social History Household Members spouse Living Arrangements House Number of Floors (Floors) 3 or More Floors Number of Stairs To Enter/Railing? pt will stay on main level of the house 3 steps R rail ascending to enter the house Home Environment Standard Height Toilet,Walk in Shower,Built-In Shower Seat Home Equipment Front Wheel Walker,Straight Cane,Raised Toilet Seat Without Armrests,Hand Held Shower M2 PT-IP Current Condition Start: 08/08/24 15:20 Freq: NEEDED Status: Active Protocol: Document 08/09/24 10:40 AB (Rec: 08/09/24 13:27 AB [id number]) Physical Therapy Current Condition Current Condition Evaluation Date 08/09/24 Treatment Diagnosis s/p R DARRELL anterior; difficulty in walking Onset Date 08/08/24 M3 PT-IP Subjective Start: 08/08/24 15:20 Freq: NEEDED Status: Active Protocol: Document 08/09/24 10:40 AB (Rec: 08/09/24 13:27 AB [id number]) Subjective Physical Therapy Visit Type Type Initial Evaluation Visit Start Time 10:40 Visit Stop Time 11:35 Number of HOUSING INSTALLER Visits 0 Physical Therapy Visit Comments Patient Comments agreeable to do PT Therapy Pain Assessment Pain When Pain Assessed At Rest Pain Present Pain Present Pain Reported Location Right hip Intensity 4 Scale Used Numeric (0 - 10) Pain Management Techniques Apply Cold,Distraction, Modification of Treatment,Re- positioning,Timing of Activity with Medications M4 PT-IP Mobility and Gait Start: 08/08/24 15:20 Freq: NEEDED Status: Active Protocol: Document 08/09/24 10:40 AB (Rec: 08/09/24 13:27 [id number]) PT-Bed Mobility Assessment Supine to Sit Supine to Sit Standby Assistance PT-Transfer Assessment Sit to and From Stand Sit to and from Stand Contact Guard Assistance,1 Person Assistance,Use of Upper Extremities Equipment Transfer Assistive Device Gait Belt,Front Wheeled Walker Orthotic/Prosthetic Devices or Brace: No Transfers Transfer Destination Chair,Toilet Transfer Technique ambulated Transfer Ability Level of Assist Contact Guard Assistance,1 Person Assistance,Use of Upper Extremities Comments Mobility Comments pt supine in bed. spouse in room. obtained PLOF and home set up. post-op folder provided and reviewed contents . educated pt and spouse regarding pt's anterior hip precautions. BP: 124/64 pt completed supine to sit SBA . able to sit on EOB SBA. pt requested to use the toilet. completed sit to stand CGA and ambulated to the toilet using FWW CGA. pt can be impulsive. cued for safety. completed sit to stand from the toilet CGA using grab bar. pt ambulated using FWW towards the sink CGA. able to maintain standing SBA while completing handwashing. pt ambulated to the chair using fWW CGA. caregiver training conducted. educated spouse on how to use safety belt and how to assist pt. spouse was able to put safety belt on pt and assisted pt with sit to stand, ambulation in the hallway using FWW CGA ~ 50 ft. educated pt and spouse with stair climbing. pt completed up/down steps holding on to R rail with B hands CGA with spouse assisiting. assisted pt back to his room. pt ambulated from w/c to chair using FWW CGA. positioned pt on the chair. call light and table placed within reach. Gait Assessment Gait Gait Assistance Required: Contact Guard Assist,1 Person Assist Distance (Feet) 50 Able to Maintain Weight Bearing Status Yes During Gait Assistive Devices Assistive Device Gait Belt,Front Wheeled Walker Orthotic/Prosthetic Devices or Brace: No Gait Deviations General Gait Pattern Antalgic Factors Limiting Gait Function Factors Limiting Gait Function Decreased Activity Tolerance, Decreased Strength,Difficulty Following Directions,Limited Range of Motion,Pain,Poor Balance,Poor Safety Awareness Stair Climbing Assessment Evaluation Level of Assist On Stairs Contact Guard Assistance Devices Stair Climbing Assistive Devices Right Railing Technique/Endurance Stair Climbing Direction Ascend and Descend Stair Climbing Technique Step to Step Number of Steps Climbed 3 Query Text: Stair Climbing Set # Repetitions (reps) 1 PT-Balance Assessment Sitting Balance and Reactions Static Sitting Balance Ability Normal Dynamic Sitting Balance Ability Good Standing Balance and Reactions Static Standing Balance Ability Fair Dynamic Standing Balance Ability Fair Device Used FWW M5 PT-IP Objective Assessments Start: 08/08/24 15:20 Freq: NEEDED Status: Active Protocol: Document 08/09/24 10:40 AB (Rec: 08/09/24 13:27 AB [id number]) Orientation Orientation/Cognition Level of Alertness Alert Orientation Name,Place,Situation Language Function Ability Hard of Hearing Safety Awareness Decreased Safety Awareness Memory Description Short Term Impaired Gross Range of Motion Lower Extremity ROM Assessment Within Functional Limits Strength Lower Extremity Strength Assessment Right Impaired Hip 3+/5 Knee 4/5 Coordination Assessment Gross Coordination Gross Coordination WNL Sensation Assessment Sensation Gross Sensation WNL Muscle Tone Muscle Tone WNL Yes M6 PT-IP Treatment Start: 08/08/24 15:20 Freq: NEEDED Status: Active Protocol: Document 08/09/24 10:40 AB (Rec: 08/09/24 13:27 AB [id number]) Physical Therapy Treatment Education Education Provided Precautions,Weight Bearing Status,Post-Op Packet,Safety M7 PT-IP Assessment and Plan Start: 08/08/24 15:20 Freq: NEEDED Status: Active Protocol: Document 08/09/24 10:40 AB (Rec: 08/09/24 13:27 [id number]) PT Summary Assessment and Plan Potential Rehabilitation Potential Fair Status of Condition at Evaluation Stable Summary Impairments Pain,ROM,Strength,Balance, Coordination,Sensation,Tone, Cognition,Bed Mobility, Transfers,Gait,Activity Tolerance Assessment Summary pt is a 78 y/o M s/p R DARRELL anterior approach POD 1. pt with R hip anterior precautions and is WBAT. pt requiring CGA with mobility using FWW. caregiver training conducted and spouse was able to assist pt safely. pt may go home when medically stable. Goals Bed Mobility Goal Independent Transfer Goal Independent,Front Wheeled Walker Gait Goal Independent,Front Wheel Walker Gait Distance 200 Other Goals up/down 3 steps R rail ascending mod I Days to Meet Goals 5 Frequency of Treatment Frequency Of Treatment Twice a Day Treatment Plan Physical Therapy Treatment Plan Bed Mobility Training,Transfer Training,Gait Training, Therapeutic Exercise,Balance Retraining,Post Op Education, Discharge Planning,Hot or Cold Pack,Neuromuscular Re-ed, Coordination Retraining,Manual Therapy Precautions Anterior Hip Precautions No Hip Extension,No Hip External Rotation Weight Bearing Status Weight Bearing Status Weight Bear as Tolerated Allowed Weight Bearing Amount (enter % RLE WBAT or #) (%) Recommendations To Nursing Amount of Assist Needed 1 Person Assist Discharge Recommendations PT Discharge Recommendations Home with Assistance, Outpatient PT Transportation Needs at Discharge Private Vehicle
[2024-08-09] MEDS: TRAMADOL 50 MG TABLET PO ×2 (12:44→20:49)
--- NOTE | 2024-08-09 13:06 | PC.NURSE ---
Assess- Patient is alert and oriented x4, he had a 300cc emesis this afternoon and seems to be sensitive to the anesthia and oxycodone. Given tramadol for discomfort and this seems to be helping him with pain to r. anterior hip. Unsure of patients discharge at this time. Waiting to see PRINCESS Godfrey when he comes back up from OR. Patient given iv zofran and otd and this also seems to have helped patient.
--- NOTE | 2024-08-09 15:03 | CM.DANOTE ---
Addendum entered by LALY Duran 08/09/24 15:17: ADD: Per [facility], no PT start available this week. SW made [facility] referral to confirm if they can do PT SOC this week. BF Original Note: Patient is a 78 yo male who [place] [facility] [place] RTHA. Pt has MCR and BCBS OUT [place] [employer] for insurance and his PCP is Dr. Gigi Copeland. EMR was reviewed. Per Ortho Surgeon, pt tolerated procedure well but with some pain issues and nausea and to work with therapies today for possible discharge home and likely may need HH. Per PT, pt participated and spouse bedside for CG training and pt somewhat impulsive but recommending home with spouse assist and HH vs outpt PT. SW met bedside with pt and spouse and explained role and they confirm they live in [place] and both active and independent and pt still drives and has started needed DME for ambulation leading up to surgery. 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 Spouse is pt's DPOA and they deny any hx of HH or SNF. Preference remains home at discharge but pt's pain too high and they do not feel stable for discharge home yet today but hopeful for tomorrow. SW inquired about outpt PT vs HH and pt currently has outpt PT set up for 08/15/24 but then their PT does not have availability until the end of July after that. Preference is HH PT/OT, no need for RN, and reviewed HH Choice list and no preference other than an agency that can start within two days of discharge. [facility] referral made and they are reviewing to determine their availability for PT start of care in [place]. F2F completed and orders placed but not sent to [facility] yet. Plan: SW to follow closely for plan of d/c home with spouse assist likely tomorrow Wed and to confirm [facility] can accept and have PT start of care this week. LALY Duran Discharge Planning/Care Management CM Discharge Assessment Start: 08/09/24 15:01 Freq: Status: Active Protocol: Document 08/09/24 15:02 BF (Rec: 08/09/24 15:03 BF [id number]) Discharge Planning Assessment Assigned Access Service Representative LALY Hill DPOA/Assigned Designee Name spouse Joslyn Contact Information [phone] Advance Directives? Yes Advance Directives on File Yes History Provided By Patient,Significant Other, Medical Record Has Patient been admitted in last 30 No days? Prior Living Arrangements House Household Members spouse Type of transporation used prior to Drives own vehicle admit Independent with ADL's Yes Is patient alert and oriented? Yes Needs Assistance With Home Chores / Shopping Caregiver for Another No Community Services used prior to Physical Therapy admission: DME Already Rented / Owned FWW / Walker Patient/Family Preference Home with Home Health Barriers to Discharge No Discharge Plan Home with Home Health Community Services Physical Therapy,Occupational Therapy Transportation Arrangement will drive patient home at D/C Referrals Initiated Home Health If patient plan is home with home health Yes : Has signed face to face form been completed? Medicare Choice List Provided Yes Medicare choice list reviewed on patient,family electronic tablet with SNF/HH Preference [facility] reviewing Whiteboard Updated in Patient Room with Yes name and ext. # of Access Service Representative Review Status In Process Please Provide Date Initial DC 08/09/24 Assessment Was Performed Next Review Type Continued Stay Review Pre-Anesthesia Assessment Start: 08/02/24 13:36 Freq: Status: Active Protocol: Document 08/02/24 13:36 LB (Rec: 08/02/24 14:24 LB [id number]) Pre-Anesthesia Assessment PAC Comment 08/02/24 Phone assessment. Preferred Name Art Patient Information Reviewed Via Phone Assessment Assessment Completed With Patient,Spouse Comment Celina. Diagnostic Results BMP/CMP,CBC,EKG,PT/INR,Other Comment 06/04/24 at . Pt/Ptt at . Primary Care Provider Gigi Copeland Medical Clearance Received Yes Seen Specialist in Last 12 Months Yes Specialist Seen Emergency,Orthopedist Primary Language Congolese Preferred Language Congolese Acid Tank Liner Required No Height 190.5 cm Weight 79.832 kg Body Mass Index (BMI) 21.9 Hearing Ability Hearing Impaired Visual Assist Glasses Dentition Type Teeth, Natural Present Barriers to Learning None Other Aids No Hx Anesthesia Reactions No Hx Family Anesthesia Reaction No Hx Malignant Hyperthermia No Hx Blood Transfusions No Anesthesia Review Requested Yes Money Counter Yes: concerned pt will need a lot of help at discharge. alcohol intake current alcohol intake frequency 0-2 drinks per day Smoking Status Former smoker how long ago did patient quit smoking Quit 1985 Substance Use Type marijuana Pain Present Pain Reported Comment Right hip. Limited movement due to pain. Musculoskeletal Symptoms Difficulty Walking,Joint Pain, Radiating Pain into Limb History of Falling (Recent or History of Yes ) Patient is completely paralyzed or No completely immobile Prosthesis or Orthotic Device Cane Mental Status Oriented to own ability Comment Will bring walker. Is patient on oxygen? No Does patient have PATTON/SOB No Hx Sleep Apnea No Currently Taking a Beta Jean No Can You Climb a Flight of Stairs Without Yes SOB Hx Chest Pain No Hx SOB No Hx Syncope or Dizziness No Anti-Coagulant Therapy No Has a Carpenter Assistant No Cardiac Testing No Hx Pacemaker/ICD No Dysphagia Yes Gastrointestinal Symptoms Dysphagia Comment With non smooth food Per , pt has cervical osteophytes. Genitourinary Symptoms Pelvic Pain Hx Urinary Self Catheterization No Comment Denies urinary issues. Diabetes No Hx Drug Resistant Organism No Presence of External or Internal Medical Yes: Left hip, neck hardware, Devices hernia mesh. Have you had any close contact with No someone diagnosed with COVID-19? Are you experiencing any of these No symptoms symptoms? Received a COVID vaccine? Yes Comment Denies covid last 2 months. Marital Status Lives With spouse Current Living Arrangements House Number of Floors (Floors) Two Floors Number of Stairs To Enter/Railing? 3 stairs with railing to enter . 14 stairs with railing to bedroom. Support System Spouse Does the Patient Have Assistance After Yes Surgery Patient Discharge Plan Description Return Home Additional comment Advised 1 night length of stay . Do You Have Any Spiritual Beliefs That No May Affect Your HC Choices? Do You Have Any Cultural Practices That No May Affect Your HC Choices? Emergency Contact Name Celina Davon Emergency Contact Advance Directives? Yes Advance Directives on File Yes Power of Lock Master Yes Power of Lock Master Name Celina Davon Power of Lock Master PAC Instructions Assistance for 24 hours post- op,Durable medical equipment, Medications to take/avoid,No ETOH/petroleum product on skin DOS,NPO,Post-op transportation,Pre-surgical wash,Sturdy shoes/comfortable clothes,Do not bring valuables and remove jewelry
[2024-08-09 20:00] VITALS: BP 134/71; PULSE 79; RESP 16; TEMP 36.6; O2SAT 99
[2024-08-09] MEDS: ATORVASTATIN 20 MG TABLET PO (20:49)
[2024-08-09] MEDS: QUETIAPINE 25 MG TABLET 50 MG PO (20:50)
[2024-08-09] MEDS: CALCIUM CARBONATE 500 MG TAB 1000 MG PO (21:30)
[2024-08-09] MEDS: SCOPOLAMINE 1 PATCH TOP (21:31)
[2024-08-09] MEDS: SODIUM CHLORIDE 0.9% 1,000 ML 84 ML IV (21:31)
[2024-08-10 07:39] VITALS: BP 110/61; PULSE 84; RESP 16; TEMP 36.5; O2SAT 96
[2024-08-10] MEDS: IBUPROFEN 600 MG TABLET PO (08:30)
[2024-08-10] MEDS: DOCUSATE 100 MG CAPSULE PO (08:31)
[2024-08-10] MEDS: LATANOPROST 0.005% OPHTH 2.5 ML 1 DROPS EYE-BOTH (08:31)
[2024-08-10] MEDS: ACETAMINOPHEN 325 MG TABLET 650 MG PO (08:31)
[2024-08-10] MEDS: SODIUM CHLORIDE 0.9% 1,000 ML 84 ML IV (08:31)
--- NOTE | 2024-08-10 09:00 | PT.IPTN ---
Current Diagnoses Unilateral primary osteoarthritis, right hip (08/08/24) Surgery Performed Operation Date: 08/08/24 10:45 Actual Procedures p Total Hip Arthroplasty/Anterior Approach(Right) - Shaggy Brown MD Physical Therapy Treatment Note M2 PT-IP Current Condition Start: 08/08/24 15:20 Freq: NEEDED Status: Active Protocol: Document 08/09/24 10:40 AB (Rec: 08/09/24 13:27 AB [id number]) Physical Therapy Current Condition Current Condition Evaluation Date 08/09/24 Treatment Diagnosis s/p R DARRELL anterior; difficulty in walking Onset Date 08/08/24 M3 PT-IP Subjective Start: 08/08/24 15:20 Freq: NEEDED Status: Active Protocol: Document 08/10/24 09:20 TS (Rec: 08/10/24 09:30 TS [id number]) Subjective Physical Therapy Visit Type Type Treatment Note Visit Start Time 09:00 Visit Stop Time 09:18 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 Therapy Pain Assessment Pain When Pain Assessed During Mobility Pain Present Pain Present Pain Reported M4 PT-IP Mobility and Gait Start: 08/08/24 15:20 Freq: NEEDED Status: Active Protocol: Document 08/10/24 09:20 TS (Rec: 08/10/24 09:30 TS [id number]) PT-Transfer Assessment Sit to and From Stand Sit to and from Stand Standby Assistance,Use of Upper Extremities Equipment Transfer Assistive Device Gait Belt,Front Wheeled Walker Orthotic/Prosthetic Devices or Brace: No Comments Mobility Comments Pt recalls 2/2 hip precautions . STS with FWW SBA. Pt ambulates in the hallway ~200' SBA with FWW an emerging step thru gait. Pt ambulates back to the room, was left sitting EOB. Gait Assessment Gait Gait Assistance Required: Standby Assistance Distance (Feet) 200 Able to Maintain Weight Bearing Status Yes During Gait Assistive Devices Assistive Device Gait Belt,Front Wheeled Walker Gait Deviations General Gait Pattern Antalgic,Decreased Stride Length,Decreased Feet Clearance Factors Limiting Gait Function Factors Limiting Gait Function Decreased Activity Tolerance, Decreased Strength,Difficulty Following Directions,Limited Range of Motion,Pain,Poor Balance PT-Balance Assessment Sitting Balance and Reactions Static Sitting Balance Ability Normal Dynamic Sitting Balance Ability Good Standing Balance and Reactions Static Standing Balance Ability Fair Dynamic Standing Balance Ability Fair Device Used FWW M5 PT-IP Objective Assessments Start: 08/08/24 15:20 Freq: NEEDED Status: Active Protocol: Document 08/09/24 10:40 AB (Rec: 08/09/24 13:27 AB [id number]) Orientation Orientation/Cognition Level of Alertness Alert Orientation Name,Place,Situation Language Function Ability Hard of Hearing Safety Awareness Decreased Safety Awareness Memory Description Short Term Impaired Gross Range of Motion Lower Extremity ROM Assessment Within Functional Limits Strength Lower Extremity Strength Assessment Right Impaired Hip 3+/5 Knee 4/5 Coordination Assessment Gross Coordination Gross Coordination WNL Sensation Assessment Sensation Gross Sensation WNL Muscle Tone Muscle Tone WNL Yes M6 PT-IP Treatment Start: 08/08/24 15:20 Freq: NEEDED Status: Active Protocol: Document 08/10/24 09:20 TS (Rec: 08/10/24 09:30 TS [id number]) Physical Therapy Treatment Education Education Provided Precautions,Weight Bearing Status,Post-Op Packet,Safety M7 PT-IP Assessment and Plan Start: 08/08/24 15:20 Freq: NEEDED Status: Active Protocol: Document 08/10/24 09:20 TS (Rec: 08/10/24 09:30 TS [id number]) PT Summary Assessment and Plan Potential Rehabilitation Potential Fair Summary Impairments Pain,ROM,Strength,Balance, Coordination,Sensation,Tone, Cognition,Bed Mobility, Transfers,Gait,Activity Tolerance Progress Towards Goals Progressing Toward Goals Assessment Summary Nisha is making good progress with his mobility. He is SBA for STS and progressed his gait to ~200'SBA. He has good recall of his hip precautions. PT is recommending pt return home with assist. Goals Bed Mobility Goal Independent Transfer Goal Independent,Front Wheeled Walker Gait Goal Independent,Front Wheel Walker Gait Distance 200 Other Goals up/down 3 steps R rail ascending mod I Days to Meet Goals 5 Frequency of Treatment Frequency Of Treatment Twice a Day Treatment Plan Physical Therapy Treatment Plan Bed Mobility Training,Transfer Training,Gait Training, Therapeutic Exercise,Balance Retraining,Post Op Education, Discharge Planning,Hot or Cold Pack,Neuromuscular Re-ed, Coordination Retraining,Manual Therapy Precautions Anterior Hip Precautions No Hip Extension,No Hip External Rotation Weight Bearing Status Weight Bearing Status Weight Bear as Tolerated Allowed Weight Bearing Amount (enter % RLE WBAT or #) (%) Recommendations To Nursing Amount of Assist Needed 1 Person Assist Discharge Recommendations PT Discharge Recommendations Home with Assistance, Outpatient PT Transportation Needs at Discharge Private Vehicle
--- NOTE | 2024-08-10 11:49 | P.DS_ITS ---
History of Present Illness History of Present Illness Chief complaint: s/p DARRELL Narrative: Nisha is a pleasant 78 year old male who is POD#2 s/p R anterior DARRELL by Dr. Brown. is at bedside. This morning patient reports he is doing well. He states his pain has much improved from yesterday and he is no longer feeling nauseous or vomiting as he was yesterday. He is ready to be discharged home. He has postop pain medication at home already, he has postop physical therapy appointments scheduled with our office. He has a walker and his will be at home and is willing and able to aid in his postop recovery. Describes his pain as mild and well controlled at this time. He is urinating well without issue. Denies any new numbness or tingling in the right lower extremity. Denies fever, chills, chest pain, SOB, nausea, vomiting. Operative Date/Time/Diagnoses Date of procedure: 08/08/24 Procedure & Clinicians Procedure: Right total hip arthroplasty Same procedure as scheduled: Yes Surgeon: Shaggy Brown Saloonkeeper: Ivette Holbrook Anesthesia Type: General and Local Operative Notes Estimated Blood Loss (mL): 200 Procedure in detail: Right Uncemented Direct Anterior Depuy Total Hip Arthroplasty: Implants: * [place] Gription size 62 cup? * Actis femoral stem size 6 high offset? * 36 mm +5 ceramic femoral head? Discharge Providers Provider Date of admission: 08/08/24 14:00 Discharge Date: 08/10/24 Primary care physician: Gigi Copeland MD Consults: 08/02/24 14:24 Consult to Anesthesiology Routine Comment: Consulting Provider: Anesthesiologist Reason for consultation: Surgeon request - AAA. 08/08/24 06:00 Consult to Anesthesiology Routine Comment: Consulting Provider: Anesthesiologist Reason for consultation: Regional block for post operative pain control 08/08/24 13:48 Consult to Discharge Planning Routine Comment: Please arrange for home health Consult to Physical Therapy Evaluate & Treat Comment: Physician Instructions: post op DARRELL protocol 08/09/24 15:10 Consult to Home Health Routine Comment: [facility] Reason For Exam: Set up HH PT/OT for discharge to home when stable Discharge provider: Ailyn Steel PA-C Summary Hospital Course Discharge Diagnosis: Stable status post right anterior total hip arthroplasty Hospital Course: Hospital course complicated by postop nausea and vomiting on post-op day #1, now resolved. Exam Vital Signs (past 8 hours): - 08/10/24 07:39 Temperature 97.7 F Pulse Rate 84 Respiratory Rate 16 Blood Pressure 110/61 Pulse Oximetry 96 Fraction of Inspired Oxygen 24 SaO2/FiO2 Ratio 412 Oxygen Delivery Method Room Air Oxygen Flow Rate 0 Narrative Exam Narrative: Patient lying comfortably in bed during our interview today. No acute distress. AOx3. Grossly normal alignment of the RLE with moderate swelling extending throughout. 5/5 strength with right DF, PF, EHL. Gross sensation intact throughout bilateral lower extremities. Calves soft and non-tender bilaterally. SCDs are on and functioning. Brisk capillary refill, pulses intact. Post-surgical Aquacel dressing clean, dry and intact over the left anterior hip without drainage. Objective Labs 08/09/24 04:40 [facility] Medical History Chronic right hip pain Bilateral inguinal hernia without obstruction or gangrene DISH (diffuse idiopathic skeletal hyperostosis) Chronic left hip pain Alcohol abuse Thoracic aortic aneurysm Sciatica Chronic back pain GERD (gastroesophageal reflux disease) (~2018) Insomnia AAA (abdominal aortic aneurysm) (~2019) Glaucoma (02/21/11) Gout (02/21/11) Hyperlipidemia (02/21/11) Arthritis Symptomatic cholelithiasis Surgical History Status post bilateral hernia repair (~07/2020) Anesthesia Status post lumbar surgery S/P laparoscopic cholecystectomy (~11/2018) Hx of fusion of cervical spine (09/23/05) Status post left hip replacement (~12/2012) Family History Father Bladder cancer Brother Throat cancer Grandfather Stroke Social History marital status: household members: spouse occupational status: previously employed Smoking Status: Former smoker alcohol intake: current substance use type: marijuana Discharge Assessment & Plan Assessment and Plan Assessment: Stable status post right anterior total hip arthroplasty Plan of Treatment: 1) Plan to discharge to home today with . 2) Continue multimodal pain management with ice to the hip for additional pain control. He has Oxycodone Rx at home already. 3) ASA b.i.d. for DVT prophylaxis. 4) Start outpatient physical therapy to work on range of motion and mobility. WBAT, maintain anterior hip precautions. CM has spoken to patient and is helping to coordinate some HH PT visits. 5) Keep dressing intact, clean, dry until 2 week postop appointment. No soaking the incision site in pools or tubs. No topical ointments or creams to the incision site. 6) Follow up at [facility] orthopedics in 2 weeks for a postop appointment and wound check. All patient's questions were answered, they demonstrates understanding and are in agreement with the plan. Call our office if any questions or concerns arise. Detailed postoperative instructions available at [email or web address] Discharge Plan Discharge Plan Patient Disposition: Home Discharge orders & Medications Prescriptions: New acetaminophen 325 mg Tablet 650 mg PO Q6H Qty: 60 0RF aspirin 81 mg Tablet,Delayed Release (Dr/Ec) 81 mg PO BID Qty: 90 0RF ibuprofen 600 mg Tablet 600 mg PO Q6H Qty: 60 0RF ondansetron 4 mg Tablet,Disintegrating 4 mg PO Q8HR Qty: 10 0RF oxycodone 5 mg Tablet 5 mg PO Q4-6H PRN (Reason: Pain, Severe (7-10)) Qty: 30 0RF Continued brimonidine [Alphagan P] 0.1 % drops 1 drp OPHTH DAILY Qty: 10 Rx Instructions: Both eyes rosuvastatin 10 mg tablet 10 mg PO DAILY Qty: 90 3RF quetiapine 50 mg tablet 50 mg PO BEDTIME Qty: 90 3RF latanoprost 0.005 % drops 1 drp EYE-BOTH DAILY baclofen 10 mg tablet 10 mg PO DAILY PRN (Reason: muscle pain.) oxymetazoline 0.05 % [place],Non-Aerosol 2 spray INTRANASAL DAILY docusate sodium 100 mg Tablet 100 mg PO DAILY PRN (Reason: constipation.) Follow up/Referrals: Gigi Copeland MD [Primary Care Provider] - Shaggy Brown MD [Physician] - 08/18/24 11:30 am (Follow up w/ Ivette Holbrook PA-C, at [facility] office in [place].) Diet/Activity/Treatments Diet: Diet as Tolerated Activity: Weightbearing as tolerated. Anterior hip precautions. Cold/Heat Therapy: Ice to hip as needed for pain. Skin/Wound/Dressing Care Report to your healthcare provider any signs of infection, such as:: chills, fever, night sweats, unusual drainage and unusual redness Dressing: May shower. Leave dressing in place until follow up in office. No bathing or otherwise soaking incision. Call the office if the dressing becomes saturated inside. Visit Report/Discharge Packet Instructions: DI for Hip Replacement, DI for Prescription Opioid Use Stand Alone Forms: Patient Portal/API, Stroke Signs & Symptoms, Surgery Discharge Discharge Data Primary Care Provider: Gigi Copeland VTE Deep Vein Thrombosis/Pulmonary Embolism Present on Admission: No
--- NOTE | 2024-08-10 14:06 | CM.DPNOTE ---
DC Note Discharge home w/spouse to assist as needed. [facility] accepts for start of care Wednesday 08/15- Alondra at [facility] updated with patient's discharge. Requested Alondra at [facility] place call to patient's spouse to review home health start of care. No addtl needs identified by this CM team. MARIAJOSE
== END 2024-08-10 12:36 | disposition home health service (06) | DRG 470 ==
LOC: OR 08-09 15:30 → AC 08-09 15:30
PROVIDERS: Admitting Provider Orthopaedic Surgery Adult Reconstructive Orthopaedic Surgery; Family Provider Internal Medicine; PCP Internal Medicine; Referring Provider Orthopaedic Surgery Adult Reconstructive Orthopaedic Surgery; Visit Provider Orthopaedic Surgery Adult Reconstructive Orthopaedic Surgery
PROC: 0SR903A Replacement of Right Hip Joint with Ceramic Synthetic Substitute, Uncemented, Open Approach (ICD-10-PCS; CPT 27130; principal; 2024-08-08 10:45)
DX: M16.11 Unilateral primary osteoarthritis, right hip (principal); M48.10 Ankylosing hyperostosis [Forestier], site unspecified; R11.2 Nausea with vomiting, unspecified; H40.9 Unspecified glaucoma; E78.5 Hyperlipidemia, unspecified; Z68.22 Body mass index [BMI] 22.0-22.9, adult
CPT/HCPCS: 36415; 73502; 76000; 85014; 85018; 94762; 97161; 97530; C1776; J0330; J0690; J1171; J2250; J2405; J2704; J3010

== ENCOUNTER → 2024-11-14 08:03 | Outpatient (CLI) | payer MEDICARE, BC, SELFPAY ==
[2024-08-08 14:09] VITALS: BMI 22.5
--- NOTE | 2024-11-14 08:04 | DI.US.S_ITS ---
PROCEDURE: US RETRO PERITONEAL LIMITED INDICATIONS: F/U AAA TECHNIQUE: Real time scanning was performed of the aorta and iliac arteries, with image documentation. COMPARISON: [facility], , ABD AORTA ANEURYSM SCREEN, 11/05/2023, 12:20. [facility], , RETRO PERITONEAL LIMITED, 11/07/2022, 8:08. FINDINGS: Aorta: Proximal aortic diameter measures 2.3 cm. Mid-aorta measures 1.9 cm. Distal abdominal aortic aneurysm redemonstrated measuring 4.3 x 7.9 x 3.1 cm. This previously measured 4.1 x 8.5 x 3.5 cm. 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 Iliac arteries: Right common iliac artery measures 1.4 cm. Left common iliac artery measures 1.6 cm. IMPRESSION: Distal infrarenal abdominal aortic aneurysm is not significantly changed in size. Recommend follow-up ultrasound in 1 year to document continued stability. Dictated by: Bernardino Dee M.D. on 11/14/2024 at 15:47 Approved by: Bernardino Dee M.D. on 11/14/2024 at 15:52
== END ==
PROVIDERS: Family Provider Internal Medicine; PCP Internal Medicine; Referring Provider Internal Medicine; Visit Provider Internal Medicine
DX: I71.40 Abdominal aortic aneurysm, without rupture, unspecified (principal)
CPT/HCPCS: 76775